=== PATIENT | female | born 1955 | race Caucasian/White ===

== ENCOUNTER 2018-12-02 06:44 | Inpatient (IN) | payer BC ==
[~2018-12-02] VITALS: Ht 157.5 cm; Wt 85.7 kg
[2018-12-02] VITALS (32 sets, daily range): BP systolic 76–135; BP diastolic 46–85; PULSE 76–107; RESP 11–29; Ht 157.5 cm; Wt 85.7 kg
[~2018-12-02 06:44] MED LIST: BUTA1CAP35 PO; DICL100G37 TOP; DOCU250C68 PO; DULO60CA59 PO; ERGO2000 PO; MAXZ25 PO; META800T PO; NORT10CA2 PO; OMEP40CA6 PO; TOPI25TA10 ORAL; TRAZ300T15 PO
[2018-12-02] MEDS ORDERED: POLYMYXIN B 500000 UNIT INJ ONE ×2 (06:53→10:41)
[2018-12-02] MEDS ORDERED: BACITRACIN 50000 UNITS INJ ONE (06:56)
[2018-12-02] MEDS ORDERED: DEXAMETHASONE 4 MG/ML 1 ML INJ IV ONE (07:30)
[2018-12-02] MEDS ORDERED: ACETAMINOPHEN 1000MG/100ML IV 100 ML IVPB ONE (07:30)
[2018-12-02] MEDS ORDERED: ACETAMINOPHEN 500 MG TAB PO ONE (07:30)
[2018-12-02] MEDS: LACTATED RINGER'S 1,000 ML IV SCH ×3 (07:34→21:26)
--- NOTE | 2018-12-02 07:36 | HPN ---
Date/Time of Note Date/Time of Note DATE: 12/02/18 TIME: 07:36 Interval H&P Admission Note Pt. seen H&P reviewed: No system changes BETH MCINTYRE December 02, 2018 07:36
--- NOTE | 2018-12-02 08:29 | PREAC ---
Date/Time of Note Date/Time of Note DATE: 12/02/18 TIME: 08:27 Anesthesia Eval and Record Evaluation Time Pre-Procedure Interview DATE: 12/02/18 TIME: 08:27 Age 62 Sex female NPO: 8 hrs Preoperative diagnosis Post bilat TKR infection Planned procedure Bilat TKR revision Past Medical History Past Medical History: Includes GI: GERD, Morbid obesity Surgery & Anesthesia Issues No known issue Meds Anticoagulation: No Beta Ubaldo within 24 hr: No Reason Beta Ubaldo not given: Pt. not on B-Ubaldo Reported Medications Diclofenac Sodium* (Voltaren* Gel) 1% -100 Gm Gel, 2 GM TOP QID, #1 TUB 11/22/18 Butalb/Acetaminophen/Caffeine ([id number] 50-300-40) 1 Each Capsule, 1 EACH PO PRN PRN for HEADACHE, CAP 11/22/18 Omeprazole* (Omeprazole*) 40 Mg Capsule.dr, 40 MG PO DAILY, #30 CAP 11/22/18 Docusate Sodium* (Dok*) 250 Mg Capsule, 250 MG PO DAILY PRN for CONSTIPATION, #30 CAP 11/22/18 Ergocalciferol (Vitamin D2) (VITAMIN D2) 2,000 Unit Tablet, 2000 UNIT PO DAILY, TAB 11/22/18 Nortriptyline Hcl* (Nortriptyline Hcl*) 10 Mg Capsule, 10 MG PO HS, CAP 11/22/18 Metaxalone* (Metaxalone*) 800 Mg Tablet, 800 MG PO QID, TAB 11/22/18 Trazodone Hcl* (Trazodone Hcl*) 300 Mg Tablet, 300 MG PO QHS, #30 TAB 11/22/18 Triamterene/Hctz* (Maxzide (37.5-25)*) 1 Each Tablet, 0.5 EACH PO AT 3PM, #30 TAB 11/22/18 Triamterene/Hctz* (Maxzide (37.5-25)*) 1 Each Tablet, 1 EACH PO QAM, #30 TAB 11/22/18 Topiramate* (Topiramate*) 25 Mg Tablet, 25 MG PO BID PRN for HEADACHE, TAB 11/22/18 Duloxetine Hcl* (Duloxetine Hcl*) 60 Mg Capsule.dr, 60 MG PO DAILY, #30 CAP 11/22/18 Current Medications Lactated Ringer's 1,000 ml @ 125 mls/hr Q8H IV Last administered on 12/02/18at 07:34; Admin Dose 125 MLS/HR; Start 12/02/18 at 07:30; Stop 12/02/18 at 17:00 Tranexamic Acid 100 ml @ 200 mls/hr AT INCISION ONCE IVPB ; Start 12/02/18 at 08:30; Stop 12/02/18 at 08:59 Tranexamic Acid 100 ml @ 330 mls/hr AT CLOSURE ONCE IVPB ; Start 12/02/18 at 09:30; Stop 12/02/18 at 09:48 Ropivacaine/ Clonidine HCl/ Epinephrine/ Ketorolac Tromethamine/ Sodium Chloride INTRA-OP ONCE IRR ; Start 12/02/18 at 08:30; Stop 12/02/18 at 08:31 Meds reviewed: Yes Allergies Coded Allergies: Iodinated Contrast- Oral and IV Dye (Verified Allergy, Severe, ANAPHALYTIC, 11/22/18) Penicillins (Verified Adverse Reaction, Intermediate, ITCHING, 11/22/18) acetaminophen (Verified Adverse Reaction, Intermediate, ITCHING, 11/22/18) hydromorphone (Verified Adverse Reaction, Intermediate, ITCHING, 11/22/18) oxycodone (Verified Adverse Reaction, Intermediate, ITCHING, 11/22/18) Allergies Reviewed: Yes Labs/Studies Labs Reviewed: Reviewed by anesthesiologist Blood Bank Test 12/02/18 07:27 Blood Product Summary Counts test: N/A Studies: ECG Pre-procedure Exam Last vitals Vital Signs Date Temp Pulse Resp B/P (MAP) Pulse Ox O2 O2 Flow FiO2 Time Delivery Rate 12/02/18 96.3 86 16 135/85 99 08:01 (102) Airway: Adequate mouth opening Mallampati: Mallampati II Teeth: Normal Lung: Normal Heart: Normal ASA Physical Status ASA physical status: 3 Emergency: None Planned Anesthetic General/MAC: ETT Neuraxial: Spinal Planned Pain Management Sub-arachniod narcotics, Parenteral pain med Pre-operative Attestations Prior to commencing anesthesia and surgery, the patient was re-evaluated, there was verification of: *The patient's identity *The results of appropriate recent lab work and preoperative vital signs *The above evaluation not changing prior to induction *Anesthetic plan, risk benefits, alternative and complications discussed with patient/family; questions answered; patient/family understands, accepts and wishes to proceed. JEANCARLOS SANTOYO MD December 02, 2018 08:29
[2018-12-02] MEDS ORDERED: TRANEXAMIC ACID 1GM/100ML(PMX) 100 ML AT INCISION X1 IVPB ONE (08:30)
[2018-12-02] MEDS ORDERED: DOCU-159 PO (08:37)
[2018-12-02] MEDS ORDERED: FER325 PO (08:37)
[2018-12-02] MEDS ORDERED: CITRACAL PO (08:37)
[2018-12-02] MEDS ORDERED: MULTI PO (08:37)
[2018-12-02] MEDS ORDERED: NORT25CA PO (08:37)
[2018-12-02] MEDS ORDERED: GABA100C14 PO (08:37)
[2018-12-02] MEDS ORDERED: morphine SULFATE/PF (10 MG/10 ML) INJ ONE (08:41)
[2018-12-02] MEDS ORDERED: MIDAZOLAM 1 MG/ML 2 ML INJ ONE ×2 (08:41→17:31)
[2018-12-02] MEDS ORDERED: TRANEXAMIC ACID 1GM/100ML(PMX) 100 ML AT CLOSURE X1 IVPB ONE (09:30)
[2018-12-02] MEDS ORDERED: POLYMYXIN/BACITRACIN 1L IRRIG IRR ONE (10:20)
[2018-12-02] MEDS ORDERED: VANCOMYCIN 1 GM INJ IRR ONE ×6 (10:21→12:10)
[2018-12-02] MEDS ORDERED: TOBRAMYCIN 1.2 GM POWDER ZFS ONE (10:21)
[2018-12-02] MEDS ORDERED: BACITRACIN 50000 UNITS INJ IRR ONE (12:08)
[2018-12-02] MEDS ORDERED: ETOMIDATE 20 MG INJ ONE (13:00)
[2018-12-02] MEDS ORDERED: PROPOFOL 20 ML ONE (13:00)
[2018-12-02] MEDS ORDERED: LIDOCAINE 2% (SDV) 5 ML INJ ONE (13:00)
[2018-12-02] MEDS ORDERED: ONDANSETRON 4 MG INJ ONE (13:00)
[2018-12-02] MEDS ORDERED: METOCLOPRAMIDE 10 MG INJ ONE (13:00)
[2018-12-02] MEDS ORDERED: DEXAMETHASONE 4 MG/ML 5 ML INJ ONE (13:01)
--- NOTE | 2018-12-02 13:04 | SIPON ---
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
[2018-12-02] MEDS ORDERED: TRANEXAMIC ACID 1GM/100ML(PMX) 200 ML ONE (13:11)
[2018-12-02] MEDS ORDERED: CLINDAMYCIN 900 MG/D5W (PMX) 50 ML IVPB ONE (13:11)
--- NOTE | 2018-12-02 13:12 | OPR ---
Date/Time of Note Date/Time of Note DATE: 12/02/18 TIME: 13:06 Operative Report Procedure Date: December 02, 2018 Preoperative Diagnosis Bilateral knee infection Postoperative Diagnosis Same Operation/Procedure Performed Bilateral knee revision, stage I with removal of implants and placement of antibiotic spacer Surgeon see signature line Segment Producer ALISSA Cintron Anesthesia Type: spinal Estimated Blood Loss: 250 - 300 ml's Transfusion none Specimen Cultures Grafts/Implants Antibiotic spacer, articulated spacer using attune knee components, 4 g of vancomycin powder and 4.8 g of tobramycin powder Tubes/Drains None Complications none Pt Condition Post Procedure: stable Disposition: PACU Indications The patient is a 62-year-old female who had total knee replacement many years ago. She has developed infection of her knees Procedure Description The patient was placed supine on the operating room table. Both knees were examined and found to have mild swelling. Both knees were prepped and draped in usual manner. The right knee was addressed first. Anterior incision was made. A medial parapatellar approach was used and the patella displaced laterally without everting it. Effusion was encountered and cultures sent. The tibial and femoral components were removed with the help of microsagittal saw and flexible osteotomes. The patellar component was removed as well. The IM canal of the femur and the tibia was opened up and debrided. The distal end of the femur and proximal tibia were thoroughly debrided. The knee was thoroughly irrigated with antibiotic solution. Antibiotic cement was mixed and the cement was placed in the intramedullary canal of the femur and tibia. After this a size 5 femur and a size 4 tibia were cemented in place in proper alignment. 8 mm of polyethylene resulted in stable knee from 0 to 115 degrees. New patella was cemented in place. Patellar tracking was satisfactory. Once the cement was set excess cement was removed. The knee was thoroughly irrigated and closed in layers using #1 strata fix for arthrotomy, #2,0 PDS for subcutaneous tissue and 3-0 Monocryl for the skin. A sterile dressing was applied on the right side. The left knee was similarly treated. An anterior incision was made. A medial parapatellar approach was used. The previous components were removed. The knee was thoroughly irrigated and debrided. The IM canal of the femur and tibia were opened up and debrided. Cultures were sent. Antibiotic cement was then used to place the spacer. A new patellar component was placed as well. A size 5 attune femur and a size 4 tibia were used along with an 8 mm polyethylene to create a stable knee from 0 to 110 degrees. The knee was then thoroughly irrigated and injected with Marcaine and Toradol. Pain cocktail was injected in both knees. The knee was closed in layers using #1 strata fix for arthrotomy, 2-0 PDS for subcutaneous tissue and 3-0 Monocryl for the skin. Sterile dressing was applied. Patient was transferred to the recovery room in stable condition. BETH MCINTYRE December 02, 2018 13:12
--- NOTE | 2018-12-02 13:26 | PAC ---
Date/Time of Note Date/Time of Note DATE: 12/02/18 TIME: 13:25 Post-Anesthesia Notes Post-Anesthesia Note Last documented vital signs Vital Signs Date Temp Pulse Resp B/P (MAP) Pulse Ox O2 O2 Flow FiO2 Time Delivery Rate 12/02/18 96.3 86 16 135/85 99 08:01 (102) Activity: WNL Respiratory function: WNL Cardiovascular function: WNL Mental status: Baseline Pain reasonably controlled: Yes Hydration appropriate: Yes Nausea/Vomiting absent: Yes Comments BP:108/67, P:78, Spo2:100%, T:99,8 JEANCARLOS SANTOYO MD December 02, 2018 13:26
[2018-12-02] MEDS ORDERED: MAGNESIUM HYDROXIDE 30ML CUP PO PRN (13:30)
[2018-12-02] MEDS ORDERED: ONDANSETRON 4 MG INJ IV PRN (13:30)
[2018-12-02] MEDS ORDERED: FENTAnyl 50 MCG/ML VIAL IV PRN (13:30)
[2018-12-02] MEDS ORDERED: NALOXONE (0.4 MG/ML) INJ IV PRN ×2 (13:30)
[2018-12-02] MEDS ORDERED: NACL 0.9% 3 ML SYG IV SCH (13:30)
[2018-12-02] MEDS ORDERED: METOCLOPRAMIDE 10 MG INJ IV PRN (13:30)
[2018-12-02] MEDS: DIPHENHYDRAMINE 50 MG INJ IV PRN ×4 (14:01→20:12)
[2018-12-02] MEDS: VANCOMYCIN 1 GM (PMX) 250 ML IVPB SCH (14:59)
[2018-12-02] MEDS ORDERED: CLINDAMYCIN 900 MG/D5W (PMX) 50 ML IVPB SCH (15:00)
--- NOTE | 2018-12-02 17:40 | HP ---
Date/Time of Note Date/Time of Note DATE: 12/02/18 TIME: 17:39 Assessment/Plan VTE Prophylaxis Risk score (from Ns)>0 risk: 3 SCD applied (from Ns): Yes Pharmacological prophylaxis: NA/contraindicated Pharm contraindication: surgical contra Lines/Catheters IV Catheter Type (from Nrsg): Peripheral IV Assessment/Plan Assessment/Plan -Bilateral knee infection. S/p Bilateral knee revision, stage I with removal of implants and placement of antibiotic spacer. Continue IV antibiotics. Continue Peotone and morphine as needed for pain and Zofran as needed for nausea. -Hypertension, continue Maxzide -Chronic kidney disease stage III continue to monitor BUN and creatinine. -GERD, continue Protonix -Depression, continue home anti-depressants. Further recommendations based on clinical course. Plan of care discussed with Dr. Huggins. HPI/ROS Admit Date/Time Admit Date/Time December 02, 2018 at 06:44 Hx of Present Illness The patient is 62-year-old female with adrenal insufficiency, hypertension, chronic kidney disease stage III, GERD, obesity, obstructive sleep apnea, and osteoarthritis. Patient had bilateral knee replacement many years ago and developed infection of bilateral knee prostheses. Patient was brought to the hospital and underwent bilateral knee revision with removal of implants and placement of antibiotic spacer. Postoperatively patient experiencing pain. Patient is admitted for further evaluation and management. ROS 12 point review of system is negative except for what mentioned in HPI PMH/Family/Social Past Medical History Medical History: GERD, hypertension, renal disease, other (Adrenal insufficiency, depression, GERD, obstructive sleep apnea, osteoarthritis) Medications Current Medications Fentanyl (Sublimaze) 25 mcg PACU ORDER PRN IV MILD PAIN 1-3; Start 12/02/18 at 13:30; Stop 12/02/18 at 18:00 Ondansetron HCl (Zofran Inj) 4 mg PACU ORDER PRN IV NAUSEA/VOMITING; Start 12/02/18 at 13:30; Stop 12/02/18 at 18:00 Metoclopramide HCl (Reglan) 10 mg PACU ORDER PRN IV NAUSEA/VOMITING; Start 12/02/18 at 13:30; Stop 12/02/18 at 18:00 Diphenhydramine HCl (Benadryl) 25 mg PACU ORDER PRN IV .PRURITUS Last administered on 12/02/18at 17:15; Admin Dose 25 MG; Start 12/02/18 at 13:30; Stop 12/02/18 at 18:00 Naloxone HCl (Narcan) 0.2 mg Q2M PRN IV .RESP RATE; Start 12/02/18 at 13:30; Stop 12/02/18 at 18:00 Miscellaneous Information (* Miscellaneous Pharmacy Order) DURAMORPH: 0.2 MG SPI... GIVEN NEURAXIAL XX ; Start 12/02/18 at 13:30 Lactated Ringer's 1,000 ml @ 80 mls/hr [id number] IV ; Start 12/02/18 at 13:18 IV Flush (NS 3 ml) 3 ml PER PROTOCOL IV ; Start 12/02/18 at 13:30 Ketorolac Tromethamine (Toradol) 15 mg Q6H PRN IV .PAIN; Start 12/02/18 at 13:30 Ondansetron HCl (Zofran Inj) 4 mg Q4H PRN IV NAUSEA/VOMITING; Start 12/03/18 at 13:30 Clindamycin HCl/ Dextrose 50 ml @ 50 mls/hr Q8H IVPB ; Start 12/02/18 at 15:00; Stop 12/03/18 at 07:59 Celecoxib (Celebrex) 100 mg BID PO ; Start 12/03/18 at 09:00 Gabapentin (Neurontin) 100 mg TID PO ; Start 12/02/18 at 21:00 Pantoprazole (Protonix Tab) 40 mg DAILY@06 PO ; Start 12/04/18 at 06:00 Docusate Sodium (Colace) 200 mg BID PO ; Start 12/03/18 at 09:00; Stop 12/06/18 at 08:59 Magnesium Hydroxide (Milk Of Mag) 30 ml HS PRN PO .CONSTIPATION; Start 12/02/18 at 13:30 Naloxone HCl (Narcan) 0.2 mg Q2M PRN IV .RESP RATE; Start 12/02/18 at 13:30 Aspirin (Halfprin) 81 mg BID PO ; Start 12/03/18 at 09:00 Acetaminophen/ Hydrocodone Bitart ([place] (10/325)) 1 tab Q4H PRN PO MODERATE PAIN LEVEL 4-6; Start 12/02/18 at 13:30 Vancomycin HCl 250 ml @ 125 mls/hr Q24H IVPB Last administered on 12/02/18at 14:59; Admin Dose 125 MLS/HR; Start 12/02/18 at 15:00 Midazolam HCl (Versed) 1 mg ONCE ONCE IV ; Start 12/02/18 at 18:00; Stop 12/02/18 at 18:01; Status UNV Coded Allergies: Iodinated Contrast- Oral and IV Dye (Verified Allergy, Severe, ANAPHALYTIC, 12/02/18) Penicillins (Verified Adverse Reaction, Intermediate, ITCHING, 12/02/18) hydromorphone (Verified Adverse Reaction, Intermediate, ITCHING, 12/02/18) oxycodone (Verified Adverse Reaction, Intermediate, ITCHING, 12/02/18) Past Surgical History Patient has extensive surgical history including status post bilateral knee replacement status post gastric bypass, status post liposuction status post C- section status post brachioplasty status post ventral hernia repair status post shoulder surgery, status post hysterectomy Past Surgical Hx: other Family History Significant Family History: diabetes, hypertension Social History Alcohol Use: none Smoking Status: Never smoker Drug Use: none Exam/Review of Systems Vital Signs Vitals Vital Signs Date Temp Pulse Resp B/P (MAP) Pulse Ox O2 O2 Flow FiO2 Time Delivery Rate 12/02/18 80 19 91/53 (66) 97 Room Air 16:18 12/02/18 99.8 13:32 Exam Constitutional: alert, oriented Head: normocephalic Neck: supple Respiratory: clear to auscultation Cardiovascular: regular rate and rhythm Gastrointestinal: soft, non-tender Musculoskeletal: other (Status post bilateral knee surgery) Extremities: normal pulses Neurological: nl mental status Skin: nl LONA Gupta December 02, 2018 17:40
[2018-12-02] MEDS ORDERED: DOCUSATE SODIUM 100 MG CAP PO PRN (18:00)
[2018-12-02] MEDS ORDERED: MIDAZOLAM 1 MG/ML 2 ML INJ IV ONE (18:00)
[2018-12-02] MEDS: KETOROLAC 15 MG INJ IV PRN (19:22)
[2018-12-02] MEDS: METAXALONE 800 MG TAB PO SCH (21:00)
[2018-12-02] MEDS: hydrOXYzine HCL 25 MG TAB PO PRN (21:09)
[2018-12-02] MEDS: NORTRIPTYLINE 25 MG CAP PO SCH (21:50)
[2018-12-02] MEDS: GABAPENTIN 100 MG CAP PO SCH (21:50)
[2018-12-02] MEDS: morphine 2 MG INJ IV PRN (22:07)
[2018-12-02] MEDS: CLINDAMYCIN 900 MG/D5W (PMX) 50 ML IVPB SCH (22:18)
[2018-12-03] MEDS: traZODone 100 MG TAB PO SCH ×2 (00:12→20:32)
[2018-12-03 00:45] VITALS: BP 107/53; PULSE 88; RESP 18
[2018-12-03] MEDS: morphine 2 MG INJ IV PRN ×4 (01:19→14:16)
[2018-12-03] MEDS: LACTATED RINGER'S 1,000 ML IV SCH ×2 (01:48→13:26)
[2018-12-03] MEDS: DIPHENHYDRAMINE 50 MG INJ IV PRN (02:32)
[2018-12-03] MEDS: hydrOXYzine HCL 25 MG TAB PO PRN (04:12)
[2018-12-03] MEDS: HYDROCODONE/APAP (10/325) TAB PO PRN ×2 (06:50→11:33)
[2018-12-03] MEDS: CLINDAMYCIN 900 MG/D5W (PMX) 50 ML IVPB SCH ×2 (06:51→14:26)
[2018-12-03] MEDS: PANTOPRAZOLE (EC) 40 MG TAB PO SCH (06:51)
[2018-12-03 07:32] VITALS: BP 104/55; PULSE 76; RESP 18
[2018-12-03] MEDS: DOCUSATE SODIUM 100 MG CAP PO SCH ×2 (08:51→20:32)
[2018-12-03] MEDS: FERROUS SULFATE (EC) 325 MG TAB PO SCH (08:51)
[2018-12-03] MEDS: CELECOXIB 100 MG CAP PO SCH ×2 (08:52→20:32)
[2018-12-03] MEDS: DULOXETINE 30 MG CAP DR PO SCH (08:52)
[2018-12-03] MEDS: GABAPENTIN 100 MG CAP PO SCH ×3 (08:52→20:32)
[2018-12-03] MEDS: ASPIRIN (EC) 81 MG TAB PO SCH ×2 (08:53→20:32)
[2018-12-03] MEDS ORDERED: NON-FORMULARY/PATIENT OWN MED (Omeprazole* 40 MG) PO SCH (09:00)
[2018-12-03] MEDS: METAXALONE 800 MG TAB PO SCH ×4 (09:00→21:00)
[2018-12-03] MEDS ORDERED: TRIAMTERENE/HCTZ (37.5/25) TAB PO SCH (09:00)
--- NOTE | 2018-12-03 12:08 | CONS ---
Consultation Date/Type/Reason Admit Date/Time December 02, 2018 at 06:44 Date/Time of Note DATE: 12/03/18 TIME: 12:08 Past Medical History Medical History: GERD, hypertension, renal disease, other (Adrenal insufficie ncy, depression, GERD, obstructive sleep apnea, osteoarthritis) Home Meds Reported Medications Docusate Sodium* (Docusate Sodium*) 100 Mg Capsule, 200 MG PO DAILY PRN for CONSTIPATION, #30 CAP 12/02/18 Multivitamins* (Theragran*) 1 Tab Tab, 1 TAB PO DAILY, TAB 12/02/18 Ferrous Sulfate* (Ferrous Sulfate*) 325 Mg Tabec, 325 MG PO DAILY, TAB 12/02/18 Calcium Citrate* (Citracal*) 950 Mg Tab, 2000 MG PO DAILY, TAB 12/02/18 Gabapentin* (Gabapentin*) 100 Mg Capsule, 100 MG PO Q8H, #90 CAP 12/02/18 Nortriptyline Hcl* (Nortriptyline Hcl*) 25 Mg Capsule, 25 MG PO HS, CAP 12/02/18 Diclofenac Sodium* (Voltaren* Gel) 1% -100 Gm Gel, 2 GM TOP QID, #1 TUB 11/22/18 Butalb/Acetaminophen/Caffeine ([id number] 50-300-40) 1 Each Capsule, 1 EACH PO PRN PRN for HEADACHE, CAP 11/22/18 Omeprazole* (Omeprazole*) 40 Mg Capsule.dr, 40 MG PO DAILY, #30 CAP 11/22/18 Ergocalciferol (Vitamin D2) (VITAMIN D2) 2,000 Unit Tablet, 2000 UNIT PO DAILY, TAB 11/22/18 Metaxalone* (Metaxalone*) 800 Mg Tablet, 800 MG PO QID, TAB 11/22/18 Trazodone Hcl* (Trazodone Hcl*) 300 Mg Tablet, 300 MG PO QHS, #30 TAB 11/22/18 Triamterene/Hctz* (Maxzide (37.5-25)*) 1 Each Tablet, 0.5 EACH PO AT 3PM, #30 TAB 11/22/18 Triamterene/Hctz* (Maxzide (37.5-25)*) 1 Each Tablet, 0.5 EACH PO BID, #30 TAB 11/22/18 Topiramate* (Topiramate*) 25 Mg Tablet, 3 TAB ORAL QAM PRN for HEADACHE, TAB 11/22/18 Duloxetine Hcl* (Duloxetine Hcl*) 60 Mg Capsule.dr, 60 MG PO DAILY, #30 CAP 11/22/18 Discontinued Reported Medications Docusate Sodium* (Dok*) 250 Mg Capsule, 250 MG PO DAILY PRN for CONSTIPATION, #30 CAP 11/22/18 Nortriptyline Hcl* (Nortriptyline Hcl*) 10 Mg Capsule, 10 MG PO HS, CAP 11/22/18 Medications Current Medications Miscellaneous Information (* Miscellaneous Pharmacy Order) DURAMORPH: 0.2 MG SPI... GIVEN NEURAXIAL XX ; Start 12/02/18 at 13:30 Lactated Ringer's 1,000 ml @ 80 mls/hr [id number] IV Last administered on 12/02/18at 21:26; Admin Dose 80 MLS/HR; Start 12/02/18 at 13:18 IV Flush (NS 3 ml) 3 ml PER PROTOCOL IV ; Start 12/02/18 at 13:30 Ketorolac Tromethamine (Toradol) 15 mg Q6H PRN IV .PAIN Last administered on 12/02/18at 19:22; Admin Dose 15 MG; Start 12/02/18 at 13:30 Ondansetron HCl (Zofran Inj) 4 mg Q4H PRN IV NAUSEA/VOMITING; Start 12/03/18 at 13:30 Celecoxib (Celebrex) 100 mg BID PO Last administered on 12/03/18at 08:52; Admin Dose 100 MG; Start 12/03/18 at 09:00 Gabapentin (Neurontin) 100 mg TID PO Last administered on 12/03/18at 08:52; Admin Dose 100 MG; Start 12/02/18 at 21:00 Docusate Sodium (Colace) 200 mg BID PO Last administered on 12/03/18at 08:51; Admin Dose 200 MG; Start 12/03/18 at 09:00; Stop 12/06/18 at 08:59 Magnesium Hydroxide (Milk Of Mag) 30 ml HS PRN PO .CONSTIPATION; Start 12/02/18 at 13:30 Naloxone HCl (Narcan) 0.2 mg Q2M PRN IV .RESP RATE; Start 12/02/18 at 13:30 Aspirin (Halfprin) 81 mg BID PO Last administered on 12/03/18 08:53; Admin Dose 81 MG; Start 12/03/18 at 09:00 Acetaminophen/ Hydrocodone Bitart ([place] (10/325)) 1 tab Q4H PRN PO MODERATE PAIN LEVEL 4-6 Last administered on 12/03/18 11:33; Admin Dose 1 TAB; Start 12/02/18 at 13:30 Vancomycin HCl 250 ml @ 125 mls/hr Q24H IVPB Last administered on 12/02/18 14:59; Admin Dose 125 MLS/HR; Start 12/02/18 at 15:00 Docusate Sodium (Colace) 200 mg DAILY PRN PO CONSTIPATION; Start 12/02/18 at 18:00 Duloxetine HCl (Cymbalta) 60 mg DAILY PO Last administered on 12/03/18 08:52; Admin Dose 60 MG; Start 12/03/18 at 09:00 Ferrous Sulfate (Ferrous Sulfate (Ec)) 325 mg DAILY PO Last administered on 12/03/18 08:51; Admin Dose 325 MG; Start 12/03/18 at 09:00 Metaxalone (Skelaxin) 800 mg QID PO ; Start 12/02/18 at 21:00 Nortriptyline HCl (Aventyl) 25 mg HS PO Last administered on 12/02/18 21:50; Admin Dose 25 MG; Start 12/02/18 at 21:00 Diphenhydramine HCl (Benadryl) 25 mg Q4H PRN IV PRURITIS Last administered on 12/03/18 02:32; Admin Dose 25 MG; Start 12/02/18 at 18:00 Pantoprazole (Protonix Tab) 40 mg DAILY@06 PO Last administered on 12/03/18 06:51; Admin Dose 40 MG; Start 12/03/18 at 06:00 Morphine Sulfate (morphine) 2 mg Q3H PRN IV breakthrough pain Last administered on 12/03/18 09:04; Admin Dose 2 MG; Start 12/02/18 at 20:30 Hydroxyzine HCl (Atarax) 25 mg Q6H PRN PO ITCHING Last administered on 12/03/18 04:12; Admin Dose 25 MG; Start 12/02/18 at 21:00 Clindamycin HCl/ Dextrose 50 ml @ 50 mls/hr Q8H IVPB Last administered on 12/03/18at 06:51; Admin Dose 50 MLS/HR; Start 12/02/18 at 22:30; Stop 12/03/18 at 15:29 Trazodone HCl (Desyrel) 300 mg HS PO Last administered on 12/03/18at 00:12; Admin Dose 300 MG; Start 12/02/18 at 23:30 Triamterene/HCTZ (Maxzide-25) 1 tab DAILY PO ; Start 12/04/18 at 09:00 Allergies: Coded Allergies: Iodinated Contrast- Oral and IV Dye (Verified Allergy, Severe, ANAPHALYTIC, 12/02/18) Penicillins (Verified Adverse Reaction, Intermediate, ITCHING, 12/02/18) hydromorphone (Verified Adverse Reaction, Intermediate, ITCHING, 12/02/18) oxycodone (Verified Adverse Reaction, Intermediate, ITCHING, 12/02/18) Past Surgical History Past Surgical Hx: other Social History Alcohol Use: none Smoking Status: Never smoker Drug Use: none Exam/Review of Systems Exam Vitals Vital Signs Date Temp Pulse Resp B/P (MAP) Pulse Ox O2 O2 Flow FiO2 Time Delivery Rate 12/03/18 97.6 76 18 104/55 100 07:32 (71) 12/03/18 Room Air 00:45 Intake and Output 12/02/18 12/02/18 12/03/18 1515:00 23:00 07:00 IntakeIntake Total 2000 ml 240 ml 770 ml OutputOutput Total 300 ml 1450 ml BalanceBalance 1700 ml 240 ml -680 ml Results Result Diagram: 12/03/18 0449 12/03/18 0449 Results 24hrs Laboratory Tests Test 12/03/18 04:49 12/03/18 07:41 White Blood Count 9.9 Red Blood Count 2.78 L Hemoglobin 8.0 L Hematocrit 25.0 L Mean Corpuscular Volume 89.9 Mean Corpuscular Hemoglobin 28.8 L Mean Corpuscular Hemoglobin Concent 32.0 Red Cell Distribution Width 14.5 Platelet Count 140 Mean Platelet Volume 9.9 Immature Granulocytes % 0.600 H Neutrophils % 81.6 H Lymphocytes % 9.3 L Monocytes % 8.4 Eosinophils % 0.0 Basophils % 0.1 Nucleated Red Blood Cells % 0.0 Immature Granulocytes # 0.060 H Neutrophils # 8.0 H Lymphocytes # 0.9 Monocytes # 0.8 Eosinophils # 0.0 Basophils # 0.0 Nucleated Red Blood Cells # 0.0 Sodium Level 133 L Potassium Level 4.5 Chloride Level 100 Carbon Dioxide Level 28 Anion Gap 5 Blood Urea Nitrogen 22 H Creatinine 0.97 Est Glomerular Filtrat Rate mL/min 58 L Glucose Level 114 Calcium Level 7.6 L Lab Scanned Report REFERENCE LAB Medications Medication Current Medications Miscellaneous Information (* Miscellaneous Pharmacy Order) DURAMORPH: 0.2 MG SPI... GIVEN NEURAXIAL XX ; Start 12/02/18 at 13:30 Lactated Ringer's 1,000 ml @ 80 mls/hr [id number] IV Last administered on 12/02at 21:26; Admin Dose 80 MLS/HR; Start 12/02/18 at 13:18 IV Flush (NS 3 ml) 3 ml PER PROTOCOL IV ; Start 12/02/18 at 13:30 Ketorolac Tromethamine (Toradol) 15 mg Q6H PRN IV .PAIN Last administered on 12/02/18at 19:22; Admin Dose 15 MG; Start 12/02/18 at 13:30 Ondansetron HCl (Zofran Inj) 4 mg Q4H PRN IV NAUSEA/VOMITING; Start 12/03/18 at 13:30 Celecoxib (Celebrex) 100 mg BID PO Last administered on 12/03/18at 08:52; Admin Dose 100 MG; Start 12/03/18 at 09:00 Gabapentin (Neurontin) 100 mg TID PO Last administered on 12/03/18at 08:52; Admin Dose 100 MG; Start 12/02/18 at 21:00 Docusate Sodium (Colace) 200 mg BID PO Last administered on 12/03/18at 08:51; Admin Dose 200 MG; Start 12/03/18 at 09:00; Stop 12/06/18 at 08:59 Magnesium Hydroxide (Milk Of Mag) 30 ml HS PRN PO .CONSTIPATION; Start 12/02/18 at 13:30 Naloxone HCl (Narcan) 0.2 mg Q2M PRN IV .RESP RATE; Start 12/02/18 at 13:30 Aspirin (Halfprin) 81 mg BID PO Last administered on 12/03/18 08:53; Admin Dose 81 MG; Start 12/03/18 at 09:00 Acetaminophen/ Hydrocodone Bitart ([place] (10/325)) 1 tab Q4H PRN PO MODERATE PAIN LEVEL 4-6 Last administered on 12/03/18 11:33; Admin Dose 1 TAB; Start 12/02/18 at 13:30 Vancomycin HCl 250 ml @ 125 mls/hr Q24H IVPB Last administered on 12/02/18 14:59; Admin Dose 125 MLS/HR; Start 12/02/18 at 15:00 Docusate Sodium (Colace) 200 mg DAILY PRN PO CONSTIPATION; Start 12/02/18 at 18:00 Duloxetine HCl (Cymbalta) 60 mg DAILY PO Last administered on 12/03/18 08:52; Admin Dose 60 MG; Start 12/03/18 at 09:00 Ferrous Sulfate (Ferrous Sulfate (Ec)) 325 mg DAILY PO Last administered on 11/11 08:51; Admin Dose 325 MG; Start 12/03/18 at 09:00 Metaxalone (Skelaxin) 800 mg QID PO ; Start 12/02/18 at 21:00 Nortriptyline HCl (Aventyl) 25 mg HS PO Last administered on 12/02/18 21:50; Admin Dose 25 MG; Start 12/02/18 at 21:00 Diphenhydramine HCl (Benadryl) 25 mg Q4H PRN IV PRURITIS Last administered on 12/03/18 02:32; Admin Dose 25 MG; Start 12/02/18 at 18:00 Pantoprazole (Protonix Tab) 40 mg DAILY@06 PO Last administered on 12/03/18 06:51; Admin Dose 40 MG; Start 12/03/18 at 06:00 Morphine Sulfate (morphine) 2 mg Q3H PRN IV breakthrough pain Last administered on 12/03/18 09:04; Admin Dose 2 MG; Start 12/02/18 at 20:30 Hydroxyzine HCl (Atarax) 25 mg Q6H PRN PO ITCHING Last administered on 12/03/18 04:12; Admin Dose 25 MG; Start 12/02/18 at 21:00 Clindamycin HCl/ Dextrose 50 ml @ 50 mls/hr Q8H IVPB Last administered on 12/03/18at 06:51; Admin Dose 50 MLS/HR; Start 12/02/18 at 22:30; Stop 12/03/18 at 15:29 Trazodone HCl (Desyrel) 300 mg HS PO Last administered on 12/03/18at 00:12; Admin Dose 300 MG; Start 12/02/18 at 23:30 Triamterene/HCTZ (Maxzide-25) 1 tab DAILY PO ; Start 12/04/18 at 09:00 GARLAND GALLEGOS MD December 03, 2018 12:08
--- NOTE | 2018-12-03 12:51 | PN ---
DATE: 12/03/2018 SUBJECTIVE: Follow up on bilateral knee revision secondary to prosthetic knee infection, hypertensio n, CKD and depression. The patient denies any chest pain, shortness of breath, remains awake, alert. Denies any abdominal pain. No reported vomiting. PHYSICAL EXAMINATION: GENERAL: The patient is awake, alert. VITAL SIGNS: Temperature 97.6, pulse 72, respiration 18, blood pressure 104/55, 02 sat % on ro om air. HEENT: No eye discharge or redness. Conjunctivae are normal. Oropharynx clear. NECK: No mass. CHEST: Fairly clear. CARDIOVASCULAR: S1, S2 normal. ABDOMEN: Soft, nondistended, nontender. EXTREMITIES: No pedal edema. GENERAL: The patient is awake, alert, and oriented. Detailed neurological examination was difficult due to recent surgery. The patient did not have any numbness in any extremities. IMPRESSION: 1. Bilateral knee infection status post bilateral knee revision. The patient is on clindamycin and vancomycin postoperatively. We will obtain ID consultation from Dr. Cox. 2. Hypertension. The patient is on Maxzide. This morning her sodium is 133, potassium is 4.5. Porter l continue to monitor. 3. Acute blood loss anemia with the hemoglobin today being 8. Will add iron sulfate. 4. History of CKD 3, however, creatinine is currently 0.9. We will continue to monitor. Continue a ntidepressant as at home. Dictated By: LEONOR ANDRE MD AB/NTS Conf#: [id number] DID#: [id number] CC: BETH MCINTYRE MD;*EndCC*
[2018-12-03 13:25] VITALS: BP 113/57; PULSE 85; RESP 18
[2018-12-03] MEDS ORDERED: ONDANSETRON 4 MG INJ IV PRN (13:30)
--- NOTE | 2018-12-03 14:59 | PN ---
Date/Time of Note Date/Time of Note DATE: 12/03/18 TIME: 14:56 Assessment/Plan Lines/Catheters IV Catheter Type (from Nrsg): Peripheral IV Husain in Place (from Nrsg): Yes Assessment/Plan Chief Complaint/Hosp Course POD#1 s/p bilateral stage I revision TKA -Continue to follow cultures -PICC line ordered -Post op H&H stable -PT/OT -Joints pain control protocol -DVT prophylaxis: SCD's, ASA 81 mg twice daily -Weight bearing status: as tolerated -Abx: IV vancomycin x6 weeks -Diet: ADAT -Husain: Discontinue today versus tomorrow -Discharge planning consult. Patient is determined to go home with IV antibiotics. She will require IV anti-medics x6 weeks. She will need to follow-up with Dr. Neymar Morales from infectious disease at [place]. Planned Discharge Date: 12/04 versed 12/05 Discharge to home with home health and IV antibiotics Subjective 24 Hr Interval Summary Patient doing well No acute events overnight Pain is moderately controlled Exam/Review of Systems Vital Signs Vitals Vital Signs Date Temp Pulse Resp B/P (MAP) Pulse Ox O2 O2 Flow FiO2 Time Delivery Rate 12/03/18 97.7 85 18 113/57 99 13:25 (75) 12/03/18 Room Air 00:45 Intake and Output 12/02/18 12/02/18 12/03/18 1515:00 23:00 07:00 IntakeIntake Total 2000 ml 240 ml 770 ml OutputOutput Total 300 ml 1450 ml BalanceBalance 1700 ml 240 ml -680 ml Exam Free Text/Dictation Bilateral lower extremity: Dressing: clean, dry, and intact, no erythema Sensation intact to light touch in a sural, saphenous, deep peroneal, superficial peroneal, medial and lateral plantar nerve distribution. Motor is intact, patient able to dorsiflex and plantarflex ankle and extend and flex great toe. Dorsalis Pedis pulse +2, Brisk capillary refill. Compartments are soft. Calves non-tender to palpation bilaterally. Results Result Diagram: 12/03/18 0449 12/03/18 0449 DIDIER OVIEDO MD December 03, 2018 14:58
[2018-12-03] MEDS ORDERED: oxyCODONE 5 MG TAB PO PRN (15:00)
[2018-12-03] MEDS ORDERED: LIDOCAINE 1% (MPF) 5 ML VIAL SC ONE (15:00)
[2018-12-03] MEDS: VANCOMYCIN 1 GM (PMX) 250 ML IVPB SCH (15:39)
[2018-12-03] MEDS: oxyCODONE 5 MG TAB PO PRN ×2 (17:04→21:23)
[2018-12-03 19:35] VITALS: BP 98/53; PULSE 91; RESP 16
[2018-12-03] MEDS: NORTRIPTYLINE 25 MG CAP PO SCH (20:32)
[2018-12-03] MEDS ORDERED: traZODone 100 MG TAB PO SCH (21:00)
[2018-12-03] MEDS: ACETAMINOPHEN 500 MG TAB PO SCH (21:25)
[2018-12-04] MEDS: oxyCODONE 5 MG TAB PO PRN ×4 (01:13→20:39)
[2018-12-04 01:30] VITALS: BP 93/51; PULSE 75; RESP 16
[2018-12-04] MEDS: LACTATED RINGER'S 1,000 ML IV SCH (02:01)
[2018-12-04] MEDS: PANTOPRAZOLE (EC) 40 MG TAB PO SCH (05:49)
[2018-12-04] MEDS: ACETAMINOPHEN 500 MG TAB PO SCH ×3 (05:50→22:18)
[2018-12-04] MEDS ORDERED: PANTOPRAZOLE (EC) 40 MG TAB PO SCH (06:00)
[2018-12-04] MEDS: morphine 2 MG INJ IV PRN ×4 (06:48→22:26)
[2018-12-04 08:29] VITALS: BP 93/55; PULSE 76; RESP 18
[2018-12-04] MEDS: DULOXETINE 30 MG CAP DR PO SCH (08:59)
[2018-12-04] MEDS: CELECOXIB 100 MG CAP PO SCH ×2 (08:59→20:38)
[2018-12-04] MEDS: ASPIRIN (EC) 81 MG TAB PO SCH ×2 (08:59→20:38)
[2018-12-04] MEDS: DOCUSATE SODIUM 100 MG CAP PO SCH ×2 (08:59→20:40)
[2018-12-04] MEDS: FERROUS SULFATE (EC) 325 MG TAB PO SCH (09:00)
[2018-12-04] MEDS: METAXALONE 800 MG TAB PO SCH ×4 (09:00→20:40)
[2018-12-04] MEDS: GABAPENTIN 100 MG CAP PO SCH ×3 (09:00→20:38)
[2018-12-04] MEDS: TRIAMTERENE/HCTZ (37.5/25) TAB PO SCH (09:00)
--- NOTE | 2018-12-04 09:56 | PN ---
Date/Time of Note Date/Time of Note DATE: 12/04/18 TIME: 09:55 Assessment/Plan Lines/Catheters IV Catheter Type (from Nrsg): PICC Line Husain in Place (from Nrsg): Yes Assessment/Plan Chief Complaint/Hosp Course POD#2 s/p bilateral stage I revision TKA Patient to wear a knee immobilizer on right lower extremity when out of bed to assist with ambulating. Patient's pain is better controlled today. Plan on discharging patient home with IV antibiotics. -Continue to follow cultures -PICC line ordered -Post op H&H stable -PT/OT -Joints pain control protocol -DVT prophylaxis: SCD's, ASA 81 mg twice daily -Weight bearing status: as tolerated. Knee immobilizer on right lower extremity when bearing weight. -Abx: IV vancomycin x6 weeks -Diet: ADAT -Husain: Discontinue today versus tomorrow -Discharge planning consult. Patient is determined to go home with IV antibiotics. She will require IV anti-medics x6 weeks. She will need to follow-up with Dr. Neymar Morales from infectious disease at [place]. Planned Discharge Date: 12/05 versed 12/06 Discharge to home with home health and IV antibiotics Subjective 24 Hr Interval Summary Patient doing well No acute events overnight Pain is well controlled Exam/Review of Systems Vital Signs Vitals Vital Signs Date Temp Pulse Resp B/P (MAP) Pulse Ox O2 O2 Flow FiO2 Time Delivery Rate 12/04/18 97.6 76 18 93/55 (68) 95 08:29 12/03/18 Room Air 00:45 Intake and Output 12/03/18 12/03/18 12/04/18 1515:00 23:00 07:00 IntakeIntake Total 1050 ml 420 ml 120 ml BalanceBalance 1050 ml 420 ml 120 ml Exam Free Text/Dictation Bilateral lower extremity: Dressing: clean, dry, and intact, no erythema Sensation intact to light touch in a sural, saphenous, deep peroneal, superficial peroneal, medial and lateral plantar nerve distribution. Motor is intact, patient able to dorsiflex and plantarflex ankle and extend and flex great toe. Dorsalis Pedis pulse +2, Brisk capillary refill. Compartments are soft. Calves non-tender to palpation bilaterally. Results Result Diagram: 12/04/18 0442 12/04/18 044 DIDIER OVIEDO MD December 04, 2018 09:56
--- NOTE | 2018-12-04 13:05 | CONS ---
Assessment/Plan Assessment/Plan Hospital Course (Demo Recall) 1. Bilateral prosthetic knee infection 2. s/p Bilateral knee revision, stage I with removal of implants and placement of antibiotic spacer 3. Hx of obesity 4. Hx of htn 5. hx of susan 6. hx of oa 7. hx of depression R: cont. vanco add ctx monitor crcl monitor plts obtain outpt/other hospital records await intra-op cx we would be happy and available to see her in f/u in the office if she is unable to f/u with Dr. Morales ty Consultation Date/Type/Reason Admit Date/Time December 02, 2018 at 06:44 Date of Consultation: December 04, 2018 Type of Consult ID Reason for Consultation ABX RECS Requesting Provider: LEONOR ANDRE MD Date/Time of Note DATE: 12/04/18 TIME: 13:01 Hx of Present Illness 62 YO female with apparent pmh of adrenal insuffic, ckd, htn, depression, gerd, susan, obesity, oa, who unfortunately developed bilateral prosthetic knee infection. She is now s/p Bilateral knee revision, stage I with removal of implants and placement of antibiotic spacer. Intra-op cxs are pending. She is on empiric IV Vanco. She apparently follows with Dr. Morales at [place] Constitutional: no complaints, improved Eyes: no complaints ENT: no complaints Respiratory: no complaints Cardiovascular: no complaints Gastrointestinal: no complaints Genitourinary: no complaints Musculoskeletal: no complaints Skin: no complaints Neurologic: no complaints Endocrine: no complaints Lymphatic: no complaints Past Medical History Medical History: GERD, hypertension, renal disease, other (Adrenal insuffic iency, depression, GERD, obstructive sleep apnea, osteoarthritis) Home Meds Reported Medications Docusate Sodium* (Docusate Sodium*) 100 Mg Capsule, 200 MG PO DAILY PRN for CONSTIPATION, #30 CAP 12/02/18 Multivitamins* (Theragran*) 1 Tab Tab, 1 TAB PO DAILY, TAB 12/02/18 Ferrous Sulfate* (Ferrous Sulfate*) 325 Mg Tabec, 325 MG PO DAILY, TAB 12/02/18 Calcium Citrate* (Citracal*) 950 Mg Tab, 2000 MG PO DAILY, TAB 12/02/18 Gabapentin* (Gabapentin*) 100 Mg Capsule, 100 MG PO Q8H, #90 CAP 12/02/18 Nortriptyline Hcl* (Nortriptyline Hcl*) 25 Mg Capsule, 25 MG PO HS, CAP 12/02/18 Diclofenac Sodium* (Voltaren* Gel) 1% -100 Gm Gel, 2 GM TOP QID, #1 TUB 11/22/18 Butalb/Acetaminophen/Caffeine ([id number] 50-300-40) 1 Each Capsule, 1 EACH PO PRN PRN for HEADACHE, CAP 11/22/18 Omeprazole* (Omeprazole*) 40 Mg Capsule.dr, 40 MG PO DAILY, #30 CAP 11/22/18 Ergocalciferol (Vitamin D2) (VITAMIN D2) 2,000 Unit Tablet, 2000 UNIT PO DAILY, TAB 11/22/18 Metaxalone* (Metaxalone*) 800 Mg Tablet, 800 MG PO QID, TAB 11/22/18 Trazodone Hcl* (Trazodone Hcl*) 300 Mg Tablet, 300 MG PO QHS, #30 TAB 11/22/18 Triamterene/Hctz* (Maxzide (37.5-25)*) 1 Each Tablet, 0.5 EACH PO AT 3PM, #30 TAB 11/22/18 Triamterene/Hctz* (Maxzide (37.5-25)*) 1 Each Tablet, 0.5 EACH PO BID, #30 TAB 11/22/18 Topiramate* (Topiramate*) 25 Mg Tablet, 3 TAB ORAL QAM PRN for HEADACHE, TAB 11/22/18 Duloxetine Hcl* (Duloxetine Hcl*) 60 Mg Capsule.dr, 60 MG PO DAILY, #30 CAP 11/22/18 Discontinued Reported Medications Docusate Sodium* (Dok*) 250 Mg Capsule, 250 MG PO DAILY PRN for CONSTIPATION, #30 CAP 11/22/18 Nortriptyline Hcl* (Nortriptyline Hcl*) 10 Mg Capsule, 10 MG PO HS, CAP 11/22/18 Medications Current Medications Miscellaneous Information (* Miscellaneous Pharmacy Order) DURAMORPH: 0.2 MG SPI... GIVEN NEURAXIAL XX ; Start 12/02/18 at 13:30 Lactated Ringer's 1,000 ml @ 80 mls/hr [id number] IV Last administered on 12/02/18at 21:26; Admin Dose 80 MLS/HR; Start 12/02/18 at 13:18 IV Flush (NS 3 ml) 3 ml PER PROTOCOL IV ; Start 12/02/18 at 13:30 Ketorolac Tromethamine (Toradol) 15 mg Q6H PRN IV .PAIN Last administered on 12/02/18 19:22; Admin Dose 15 MG; Start 12/02/18 at 13:30 Ondansetron HCl (Zofran Inj) 4 mg Q4H PRN IV NAUSEA/VOMITING; Start 12/03/18 at 13:30 Celecoxib (Celebrex) 100 mg BID PO Last administered on 12/04/18 08:59; Admin Dose 100 MG; Start 12/03/18 at 09:00 Gabapentin (Neurontin) 100 mg TID PO Last administered on 12/04/18 09:00; Admin Dose 100 MG; Start 12/02/18 at 21:00 Docusate Sodium (Colace) 200 mg BID PO Last administered on 12/04/18 08:59; Admin Dose 200 MG; Start 12/03/18 at 09:00; Stop 12/06/18 at 08:59 Magnesium Hydroxide (Milk Of Mag) 30 ml HS PRN PO .CONSTIPATION; Start 12/02/18 at 13:30 Naloxone HCl (Narcan) 0.2 mg Q2M PRN IV .RESP RATE; Start 12/02/18 at 13:30 Aspirin (Halfprin) 81 mg BID PO Last administered on 12/04/18 08:59; Admin Dose 81 MG; Start 12/03/18 at 09:00 Vancomycin HCl 250 ml @ 125 mls/hr Q24H IVPB Last administered on 12/03/18 15:39; Admin Dose 125 MLS/HR; Start 12/02/18 at 15:00 Docusate Sodium (Colace) 200 mg DAILY PRN PO CONSTIPATION; Start 12/02/18 at 18:00 Duloxetine HCl (Cymbalta) 60 mg DAILY PO Last administered on 12/04/18 08:59; Admin Dose 60 MG; Start 12/03/18 at 09:00 Ferrous Sulfate (Ferrous Sulfate (Ec)) 325 mg DAILY PO Last administered on 12/04/18 09:00; Admin Dose 325 MG; Start 12/03/18 at 09:00 Metaxalone (Skelaxin) 800 mg QID PO ; Start 12/02/18 at 21:00 Nortriptyline HCl (Aventyl) 25 mg HS PO Last administered on 12/03/18 20:32; Admin Dose 25 MG; Start 12/02/18 at 21:00 Diphenhydramine HCl (Benadryl) 25 mg Q4H PRN IV PRURITIS Last administered on 12/03/18 02:32; Admin Dose 25 MG; Start 12/02/18 at 18:00 Pantoprazole (Protonix Tab) 40 mg DAILY@06 PO Last administered on 12/04/18 05:49; Admin Dose 40 MG; Start 12/03/18 at 06:00 Morphine Sulfate (morphine) 2 mg Q3H PRN IV breakthrough pain Last administered on 12/04/18 11:53; Admin Dose 2 MG; Start 12/02/18 at 20:30 Hydroxyzine HCl (Atarax) 25 mg Q6H PRN PO ITCHING Last administered on 12/03/18 04:12; Admin Dose 25 MG; Start 12/02/18 at 21:00 Trazodone HCl (Desyrel) 300 mg HS PO Last administered on 12/03/18 20:32; Admin Dose 300 MG; Start 12/02/18 at 23:30 Triamterene/HCTZ (Maxzide-25) 1 tab DAILY PO ; Start 12/04/18 at 09:00 Oxycodone HCl (Roxicodone) 15 mg Q4H PRN PO .PAIN Last administered on 12/04/18 11:14; Admin Dose 15 MG; Start 12/03/18 at 15:00 Oxycodone HCl (Roxicodone) 10 mg Q4H PRN PO .PAIN Last administered on 12/04/18 05:50; Admin Dose 10 MG; Start 12/03/18 at 15:00 Oxycodone HCl (Roxicodone) 5 mg Q4H PRN PO .PAIN; Start 12/03/18 at 15:00 Acetaminophen (Tylenol Tab) 1,000 mg Q8 PO Last administered on 12/04/18 05:50; Admin Dose 1,000 MG; Start 12/03/18 at 22:00 IV Flush (NS 10 ml) 10 ml PRN PRN IV IV PROTOCOL; Start 12/03/18 at 21:00 Allergies: Coded Allergies: Iodinated Contrast- Oral and IV Dye (Verified Allergy, Severe, ANAPHALYTIC, 12/02/18) Penicillins (Verified Adverse Reaction, Intermediate, ITCHING, 12/02/18) hydromorphone (Verified Adverse Reaction, Intermediate, ITCHING, 12/02/18) oxycodone (Verified Adverse Reaction, Intermediate, ITCHING, 12/02/18) Past Surgical History Past Surgical Hx: other Social History Alcohol Use: none Smoking Status: Never smoker Drug Use: none Exam/Review of Systems Exam Vitals Vital Signs Date Temp Pulse Resp B/P (MAP) Pulse Ox O2 O2 Flow FiO2 Time Delivery Rate 12/04/18 97.6 76 18 93/55 (68) 95 08:29 12/03/18 Room Air 00:45 Intake and Output 12/03/18 12/03/18 12/04/18 1515:00 23:00 07:00 IntakeIntake Total 1050 ml 420 ml 120 ml BalanceBalance 1050 ml 420 ml 120 ml Constitutional: alert, oriented, well developed Psych: no complaints, nl mood/affect Head: normocephalic, atraumatic Eyes: nl conjunctiva, EOMI, nl lids, nl sclera, PERRL ENMT: nl external ears & nose, nl lips & teeth, nl nasal mucosa & septum Neck: supple, non-tender Respiratory: clear to auscultation, normal air movement Cardiovascular: regular rate and rhythm, nl pulses Gastrointestinal: soft, nl liver, spleen, non-tender Neurological: MEDICAL RECORDS COORDINATOR II-XII intact, nl mental status, nl speech, nl strength Results Result Diagram: 12/04/182 12/04/182 Results 24hrs Laboratory Tests Test 12/04/18 04:42 White Blood Count 5.6 # Red Blood Count 2.70 L Hemoglobin 7.9 L Hematocrit 24.5 L Mean Corpuscular Volume 90.7 Mean Corpuscular Hemoglobin 29.3 Mean Corpuscular Hemoglobin Concent 32.2 Red Cell Distribution Width 14.8 H Platelet Count 121 L Mean Platelet Volume 10.2 Immature Granulocytes % 0.400 Neutrophils % 62.0 Lymphocytes % 27.5 Monocytes % 9.2 Eosinophils % 0.7 Basophils % 0.2 Nucleated Red Blood Cells % 0.0 Immature Granulocytes # 0.020 Neutrophils # 3.5 Lymphocytes # 1.5 Monocytes # 0.5 Eosinophils # 0.0 Basophils # 0.0 Nucleated Red Blood Cells # 0.0 Sodium Level 134 L Potassium Level 4.1 Chloride Level 99 Carbon Dioxide Level 30 Anion Gap 5 Blood Urea Nitrogen 21 H Creatinine 0.92 Est Glomerular Filtrat Rate mL/min > 60 Glucose Level 92 Calcium Level 7.9 L Medications Medication Current Medications Miscellaneous Information (* Miscellaneous Pharmacy Order) DURAMORPH: 0.2 MG SPI... GIVEN NEURAXIAL XX ; Start 12/02/18 at 13:30 Lactated Ringer's 1,000 ml @ 80 mls/hr [id number] IV Last administered on 12/02/18 21:26; Admin Dose 80 MLS/HR; Start 12/02/18 at 13:18 IV Flush (NS 3 ml) 3 ml PER PROTOCOL IV ; Start 12/02/18 at 13:30 Ketorolac Tromethamine (Toradol) 15 mg Q6H PRN IV .PAIN Last administered on 12/02/18 19:22; Admin Dose 15 MG; Start 12/02/18 at 13:30 Ondansetron HCl (Zofran Inj) 4 mg Q4H PRN IV NAUSEA/VOMITING; Start 12/03/18 at 13:30 Celecoxib (Celebrex) 100 mg BID PO Last administered on 12/04/18 08:59; Admin Dose 100 MG; Start 12/03/18 at 09:00 Gabapentin (Neurontin) 100 mg TID PO Last administered on 12/04/18 09:00; Admin Dose 100 MG; Start 12/02/18 at 21:00 Docusate Sodium (Colace) 200 mg BID PO Last administered on 12/04/18 08:59; Admin Dose 200 MG; Start 12/03/18 at 09:00; Stop 12/06/18 at 08:59 Magnesium Hydroxide (Milk Of Mag) 30 ml HS PRN PO .CONSTIPATION; Start 12/02/18 at 13:30 Naloxone HCl (Narcan) 0.2 mg Q2M PRN IV .RESP RATE; Start 12/02/18 at 13:30 Aspirin (Halfprin) 81 mg BID PO Last administered on 12/04/18 08:59; Admin Dose 81 MG; Start 12/03/18 at 09:00 Vancomycin HCl 250 ml @ 125 mls/hr Q24H IVPB Last administered on 12/03/18at 15:39; Admin Dose 125 MLS/HR; Start 12/02/18 at 15:00 Docusate Sodium (Colace) 200 mg DAILY PRN PO CONSTIPATION; Start 12/02/18 at 18:00 Duloxetine HCl (Cymbalta) 60 mg DAILY PO Last administered on 12/04/18at 08:59; Admin Dose 60 MG; Start 12/03/18 at 09:00 Ferrous Sulfate (Ferrous Sulfate (Ec)) 325 mg DAILY PO Last administered on 12/04/18 09:00; Admin Dose 325 MG; Start 12/03/18 at 09:00 Metaxalone (Skelaxin) 800 mg QID PO ; Start 12/02/18 at 21:00 Nortriptyline HCl (Aventyl) 25 mg HS PO Last administered on 12/03/18 20:32; Admin Dose 25 MG; Start 12/02/18 at 21:00 Diphenhydramine HCl (Benadryl) 25 mg Q4H PRN IV PRURITIS Last administered on 12/03/18 02:32; Admin Dose 25 MG; Start 12/02/18 at 18:00 Pantoprazole (Protonix Tab) 40 mg DAILY@06 PO Last administered on 12/04/18 05:49; Admin Dose 40 MG; Start 12/03/18 at 06:00 Morphine Sulfate (morphine) 2 mg Q3H PRN IV breakthrough pain Last administered on 12/04/18 11:53; Admin Dose 2 MG; Start 12/02/18 at 20:30 Hydroxyzine HCl (Atarax) 25 mg Q6H PRN PO ITCHING Last administered on 12/03/18 04:12; Admin Dose 25 MG; Start 12/02/18 at 21:00 Trazodone HCl (Desyrel) 300 mg HS PO Last administered on 12/03/18 20:32; Admin Dose 300 MG; Start 12/02/18 at 23:30 Triamterene/HCTZ (Maxzide-25) 1 tab DAILY PO ; Start 12/04/18 at 09:00 Oxycodone HCl (Roxicodone) 15 mg Q4H PRN PO .PAIN Last administered on 12/04/18at 11:14; Admin Dose 15 MG; Start 12/03/18 at 15:00 Oxycodone HCl (Roxicodone) 10 mg Q4H PRN PO .PAIN Last administered on 12/04/18at 05:50; Admin Dose 10 MG; Start 12/03/18 at 15:00 Oxycodone HCl (Roxicodone) 5 mg Q4H PRN PO .PAIN; Start 12/03/18 at 15:00 Acetaminophen (Tylenol Tab) 1,000 mg Q8 PO Last administered on 12/04/18at 05:50; Admin Dose 1,000 MG; Start 12/03/18 at 22:00 IV Flush (NS 10 ml) 10 ml PRN PRN IV IV PROTOCOL; Start 12/03/18 at 21:00 GARLAND GALLEGOS MD December 04, 2018 13:05
[2018-12-04] MEDS: CEFTRIAXONE 1 GM/50 ML (PMX) 50 ML IVPB SCH (14:33)
[2018-12-04] MEDS: VANCOMYCIN 1 GM (PMX) 250 ML IVPB SCH (15:51)
--- NOTE | 2018-12-04 17:12 | PN ---
Date/Time of Note Date/Time of Note DATE: 12/04/18 TIME: 17:10 Assessment/Plan VTE Prophylaxis Risk score (from Ns)>0 risk: 6 SCD applied (from [facility] [place]): Yes SCD contraindicated: other Pharmacological prophylaxis: other Pharm contraindication: other Lines/Catheters IV Catheter Type (from [facility]): PICC Line Central line still needed: Yes Urinary Cath still in place: No Assessment/Plan Assessment/Plan 1. Bilateral knee infection status post bilateral knee revision. The patient is on clindamycin and vancomycin postoperatively. - per ortho - per ID consultation from Dr. Cox. 2. Hypertension. The patient is on Maxzide. This morning her sodium is 133, potassium is 4.5. Will continue to monitor. 3. Acute blood loss anemia with the hemoglobin today being 8. Will add iron sulfate. 4. History of CKD 3, however, creatinine is currently 0.9. We will continue to monitor. Continue antidepressant as at home. - ZACHARY Acosta Result Diagram: 12/04/1844112/04/182 Results 24hrs Laboratory Tests Test 12/04/18 04:42 White Blood Count 5.6 # Red Blood Count 2.70 L Hemoglobin 7.9 L Hematocrit 24.5 L Mean Corpuscular Volume 90.7 Mean Corpuscular Hemoglobin 29.3 Mean Corpuscular Hemoglobin Concent 32.2 Red Cell Distribution Width 14.8 H Platelet Count 121 L Mean Platelet Volume 10.2 Immature Granulocytes % 0.400 Neutrophils % 62.0 Lymphocytes % 27.5 Monocytes % 9.2 Eosinophils % 0.7 Basophils % 0.2 Nucleated Red Blood Cells % 0.0 Immature Granulocytes # 0.020 Neutrophils # 3.5 Lymphocytes # 1.5 Monocytes # 0.5 Eosinophils # 0.0 Basophils # 0.0 Nucleated Red Blood Cells # 0.0 Sodium Level 134 L Potassium Level 4.1 Chloride Level 99 Carbon Dioxide Level 30 Anion Gap 5 Blood Urea Nitrogen 21 H Creatinine 0.92 Est Glomerular Filtrat Rate mL/min > 60 Glucose Level 92 Calcium Level 7.9 L Subjective 24 Hr Interval Summary Eyes: no complaints ENT: no complaints Respiratory: no complaints Cardiovascular: no complaints Gastrointestinal: no complaints Genitourinary: no complaints Musculoskeletal: bone/joint pain, restricted range of motion Skin: no complaints Neurologic: no complaints Endocrine: no complaints Lymphatic: no complaints Psychological: nl mood/affect Immunologic: no complaints Exam/Review of Systems Exam Vitals Vital Signs Date Temp Pulse Resp B/P (MAP) Pulse Ox O2 O2 Flow FiO2 Time Delivery Rate 12/04/18 97.6 76 18 93/55 (68) 95 08:29 12/03/18 Room Air 00:45 Intake and Output 12/03/18 12/03/18 12/04/18 1515:00 23:00 07:00 IntakeIntake Total 1050 ml 420 ml 120 ml BalanceBalance 1050 ml 420 ml 120 ml Constitutional: alert, well developed Psych: nl mood/affect Eyes: nl lids, nl sclera ENMT: nl external ears & nose Neck: non-tender Respiratory: clear to auscultation Cardiovascular: nl pulses Gastrointestinal: soft, non-tender Musculoskeletal: joint tenderness, range of motion Extremities: normal pulses Neurological: other Lymph: nontender Results Results 24hrs Laboratory Tests Test 12/04/18 04:42 White Blood Count 5.6 # Red Blood Count 2.70 L Hemoglobin 7.9 L Hematocrit 24.5 L Mean Corpuscular Volume 90.7 Mean Corpuscular Hemoglobin 29.3 Mean Corpuscular Hemoglobin Concent 32.2 Red Cell Distribution Width 14.8 H Platelet Count 121 L Mean Platelet Volume 10.2 Immature Granulocytes % 0.400 Neutrophils % 62.0 Lymphocytes % 27.5 Monocytes % 9.2 Eosinophils % 0.7 Basophils % 0.2 Nucleated Red Blood Cells % 0.0 Immature Granulocytes # 0.020 Neutrophils # 3.5 Lymphocytes # 1.5 Monocytes # 0.5 Eosinophils # 0.0 Basophils # 0.0 Nucleated Red Blood Cells # 0.0 Sodium Level 134 L Potassium Level 4.1 Chloride Level 99 Carbon Dioxide Level 30 Anion Gap 5 Blood Urea Nitrogen 21 H Creatinine 0.92 Est Glomerular Filtrat Rate mL/min > 60 Glucose Level 92 Calcium Level 7.9 L Medications Medication Current Medications Miscellaneous Information (* Miscellaneous Pharmacy Order) DURAMORPH: 0.2 MG SPI... GIVEN NEURAXIAL XX ; Start 12/02/18 at 13:30 IV Flush (NS 3 ml) 3 ml PER PROTOCOL IV ; Start 12/02/18 at 13:30 Ketorolac Tromethamine (Toradol) 15 mg Q6H PRN IV .PAIN Last administered on 12/02/18at 19:22; Admin Dose 15 MG; Start 12/02/18 at 13:30 Ondansetron HCl (Zofran Inj) 4 mg Q4H PRN IV NAUSEA/VOMITING; Start 12/03/18 at 13:30 Celecoxib (Celebrex) 100 mg BID PO Last administered on 12/04/18 08:59; Admin Dose 100 MG; Start 12/03/18 at 09:00 Gabapentin (Neurontin) 100 mg TID PO Last administered on 12/04/18 14:34; Admin Dose 100 MG; Start 12/02/18 at 21:00 Docusate Sodium (Colace) 200 mg BID PO Last administered on 12/04/18 08:59; Admin Dose 200 MG; Start 12/03/18 at 09:00; Stop 12/06/18 at 08:59 Magnesium Hydroxide (Milk Of Mag) 30 ml HS PRN PO .CONSTIPATION; Start 12/02/18 at 13:30 Naloxone HCl (Narcan) 0.2 mg Q2M PRN IV .RESP RATE; Start 12/02/18 at 13:30 Aspirin (Halfprin) 81 mg BID PO Last administered on 12/04/18 08:59; Admin Dose 81 MG; Start 12/03/18 at 09:00 Vancomycin HCl 250 ml @ 125 mls/hr Q24H IVPB Last administered on 12/04/18 15:51; Admin Dose 125 MLS/HR; Start 12/02/18 at 15:00 Docusate Sodium (Colace) 200 mg DAILY PRN PO CONSTIPATION; Start 12/02/18 at 18:00 Duloxetine HCl (Cymbalta) 60 mg DAILY PO Last administered on 12/04/18 08:59; Admin Dose 60 MG; Start 12/03/18 at 09:00 Ferrous Sulfate (Ferrous Sulfate (Ec)) 325 mg DAILY PO Last administered on 12/04/18 09:00; Admin Dose 325 MG; Start 12/03/18 at 09:00 Metaxalone (Skelaxin) 800 mg QID PO Last administered on 12/04/18 14:38; Admin Dose 800 MG; Start 12/02/18 at 21:00 Nortriptyline HCl (Aventyl) 25 mg HS PO Last administered on 12/03/18 20:32; Admin Dose 25 MG; Start 12/02/18 at 21:00 Diphenhydramine HCl (Benadryl) 25 mg Q4H PRN IV PRURITIS Last administered on 12/03/18 02:32; Admin Dose 25 MG; Start 12/02/18 at 18:00 Pantoprazole (Protonix Tab) 40 mg DAILY@06 PO Last administered on 12/04/18 05:49; Admin Dose 40 MG; Start 12/03/18 at 06:00 Morphine Sulfate (morphine) 2 mg Q3H PRN IV breakthrough pain Last administered on 12/04/18 15:45; Admin Dose 2 MG; Start 12/02/18 at 20:30 Hydroxyzine HCl (Atarax) 25 mg Q6H PRN PO ITCHING Last administered on 12/03/18 04:12; Admin Dose 25 MG; Start 12/02/18 at 21:00 Trazodone HCl (Desyrel) 300 mg HS PO Last administered on 12/03/18 20:32; Admin Dose 300 MG; Start 12/02/18 at 23:30 Triamterene/HCTZ (Maxzide-25) 1 tab DAILY PO ; Start 12/04/18 at 09:00 Oxycodone HCl (Roxicodone) 15 mg Q4H PRN PO .PAIN Last administered on 12/04/18 11:14; Admin Dose 15 MG; Start 12/03/18 at 15:00 Oxycodone HCl (Roxicodone) 10 mg Q4H PRN PO .PAIN Last administered on 12/04/18 05:50; Admin Dose 10 MG; Start 12/03/18 at 15:00 Oxycodone HCl (Roxicodone) 5 mg Q4H PRN PO .PAIN; Start 12/03/18 at 15:00 Acetaminophen (Tylenol Tab) 1,000 mg Q8 PO Last administered on 12/04/18 14:35; Admin Dose 1,000 MG; Start 12/03/18 at 22:00 IV Flush (NS 10 ml) 10 ml PRN PRN IV IV PROTOCOL; Start 12/03/18 at 21:00 Ceftriaxone Sodium 50 ml @ 100 mls/hr Q24H IVPB Last administered on 12/04/18 14:33; Admin Dose 100 MLS/HR; Start 12/04/18 at 14:00 DESTINY JOHNSON December 04, 2018 17:12
[2018-12-04 19:25] VITALS: BP 111/57; PULSE 100; RESP 20
[2018-12-04] MEDS: traZODone 100 MG TAB PO SCH (20:38)
[2018-12-04] MEDS: NORTRIPTYLINE 25 MG CAP PO SCH (20:38)
[2018-12-05] MEDS: oxyCODONE 5 MG TAB PO PRN ×5 (00:46→18:44)
[2018-12-05] MEDS: morphine 2 MG INJ IV PRN (01:56)
[2018-12-05 02:15] VITALS: BP 96/52; PULSE 84; RESP 20
[2018-12-05] MEDS: PANTOPRAZOLE (EC) 40 MG TAB PO SCH (05:59)
[2018-12-05] MEDS: ACETAMINOPHEN 500 MG TAB PO SCH ×3 (05:59→21:45)
--- NOTE | 2018-12-05 06:19 | PN ---
Date/Time of Note Date/Time of Note DATE: 12/05/18 TIME: 06:18 Assessment/Plan VTE Prophylaxis Risk score (from Ns)>0 risk: 8 SCD applied (from Ns): Yes SCD contraindicated: other Pharmacological prophylaxis: other Pharm contraindication: other Lines/Catheters IV Catheter Type (from Nrsg): PICC Line Central line still needed: Yes Urinary Cath still in place: No Assessment/Plan Assessment/Plan 1. Bilateral knee infection status post bilateral knee revision. The patient is on clindamycin and vancomycin postoperatively. - per ortho - per ID consultation from Dr. Cox. 2. Hypertension. The patient is on Maxzide. This morning her sodium is 133, potassium is 4.5. Will continue to monitor. 3. Acute blood loss anemia with the hemoglobin today being 8. Will add iron sulfate. 4. History of CKD 3, however, creatinine is currently 0.9. We will continue to monitor. Continue antidepressant as at home. - ZACHARY Acosta Result Diagram: 12/04/18 0442 12/05/18 0436 Results 24hrs Laboratory Tests Test 12/05/18 04:36 White Blood Count Pending Red Blood Count Pending Hemoglobin Pending Hematocrit Pending Mean Corpuscular Volume Pending Mean Corpuscular Hemoglobin Pending Mean Corpuscular Hemoglobin Concent Pending Red Cell Distribution Width Pending Platelet Count Pending Mean Platelet Volume Pending Sodium Level 138 Potassium Level 4.5 Chloride Level 102 Carbon Dioxide Level 32 H Anion Gap 4 L Blood Urea Nitrogen 17 Creatinine 0.94 Est Glomerular Filtrat Rate mL/min > 60 Glucose Level 95 Calcium Level 8.4 Subjective 24 Hr Interval Summary Free Text/Dictation c/o bilateral knee pain after PT; effective pain control afebrile No new events reported last night Eyes: no complaints ENT: no complaints Respiratory: no complaints Cardiovascular: no complaints Gastrointestinal: no complaints Genitourinary: no complaints Musculoskeletal: bone/joint pain, restricted range of motion Skin: no complaints Neurologic: no complaints Endocrine: no complaints Lymphatic: no complaints Psychological: nl mood/affect Immunologic: no complaints Exam/Review of Systems Exam Vitals Vital Signs Date Temp Pulse Resp B/P (MAP) Pulse Ox O2 O2 Flow FiO2 Time Delivery Rate 12/05/18 98.1 84 20 96/52 (67) 96 Room Air 02:15 Intake and Output 12/04/18 12/04/18 12/05/18 1515:00 23:00 07:00 IntakeIntake Total 5900 ml 1300 ml OutputOutput Total 4000 ml BalanceBalance 1900 ml 1300 ml Constitutional: alert, well developed Psych: nl mood/affect Head: atraumatic Eyes: nl lids ENMT: nl external ears & nose Neck: non-tender Respiratory: clear to auscultation Cardiovascular: nl pulses, other (s1s2) Gastrointestinal: soft, non-tender Musculoskeletal: joint tenderness, range of motion Extremities: normal pulses, other (BLE dressing noted- DDI ) Neurological: nl mental status, nl speech Skin: nl turgor Lymph: nontender Results Results 24hrs Laboratory Tests Test 12/05/18 04:36 White Blood Count Pending Red Blood Count Pending Hemoglobin Pending Hematocrit Pending Mean Corpuscular Volume Pending Mean Corpuscular Hemoglobin Pending Mean Corpuscular Hemoglobin Concent Pending Red Cell Distribution Width Pending Platelet Count Pending Mean Platelet Volume Pending Sodium Level 138 Potassium Level 4.5 Chloride Level 102 Carbon Dioxide Level 32 H Anion Gap 4 L Blood Urea Nitrogen 17 Creatinine 0.94 Est Glomerular Filtrat Rate mL/min > 60 Glucose Level 95 Calcium Level 8.4 Medications Medication Current Medications Miscellaneous Information (* Miscellaneous Pharmacy Order) DURAMORPH: 0.2 MG SPI... GIVEN NEURAXIAL XX ; Start 12/02/18 at 13:30 IV Flush (NS 3 ml) 3 ml PER PROTOCOL IV ; Start 12/02/18 at 13:30 Ketorolac Tromethamine (Toradol) 15 mg Q6H PRN IV .PAIN Last administered on 12/02/18at 19:22; Admin Dose 15 MG; Start 12/02/18 at 13:30 Ondansetron HCl (Zofran Inj) 4 mg Q4H PRN IV NAUSEA/VOMITING; Start 12/03/18 at 13:30 Celecoxib (Celebrex) 100 mg BID PO Last administered on 12/04/18at 20:38; Admin Dose 100 MG; Start 12/03/18 at 09:00 Gabapentin (Neurontin) 100 mg TID PO Last administered on 12/04/18at 20:38; Admin Dose 100 MG; Start 12/02/18 at 21:00 Docusate Sodium (Colace) 200 mg BID PO Last administered on 12/04/18 20:40; Ad min Dose 200 MG; Start 12/03/18 at 09:00; Stop 12/06/18 at 08:59 Magnesium Hydroxide (Milk Of Mag) 30 ml HS PRN PO .CONSTIPATION; Start 12/02/18 at 13:30 Naloxone HCl (Narcan) 0.2 mg Q2M PRN IV .RESP RATE; Start 12/02/18 at 13:30 Aspirin (Halfprin) 81 mg BID PO Last administered on 12/04/18 20:38; Admin Dose 81 MG; Start 12/03/18 at 09:00 Vancomycin HCl 250 ml @ 125 mls/hr Q24H IVPB Last administered on 12/04/18 15:51; Admin Dose 125 MLS/HR; Start 12/02/18 at 15:00 Docusate Sodium (Colace) 200 mg DAILY PRN PO CONSTIPATION; Start 12/02/18 at 18:00 Duloxetine HCl (Cymbalta) 60 mg DAILY PO Last administered on 12/04/18 08:59; Admin Dose 60 MG; Start 12/03/18 at 09:00 Ferrous Sulfate (Ferrous Sulfate (Ec)) 325 mg DAILY PO Last administered on 12/04/18 09:00; Admin Dose 325 MG; Start 12/03/18 at 09:00 Metaxalone (Skelaxin) 800 mg QID PO Last administered on 12/04/18 20:40; Admin Dose 800 MG; Start 12/02/18 at 21:00 Nortriptyline HCl (Aventyl) 25 mg HS PO Last administered on 12/04/18 20:38; Admin Dose 25 MG; Start 12/02/18 at 21:00 Diphenhydramine HCl (Benadryl) 25 mg Q4H PRN IV PRURITIS Last administered on 12/03/18 02:32; Admin Dose 25 MG; Start 12/02/18 at 18:00 Pantoprazole (Protonix Tab) 40 mg DAILY@06 PO Last administered on 12/05/18 05:59; Admin Dose 40 MG; Start 12/03/18 at 06:00 Morphine Sulfate (morphine) 2 mg Q3H PRN IV breakthrough pain Last administered on 12/05/18 01:56; Admin Dose 2 MG; Start 12/02/18 at 20:30 Hydroxyzine HCl (Atarax) 25 mg Q6H PRN PO ITCHING Last administered on 12/03/18at 04:12; Admin Dose 25 MG; Start 12/02/18 at 21:00 Trazodone HCl (Desyrel) 300 mg HS PO Last administered on 12/04/18at 20:38; Admin Dose 300 MG; Start 12/02/18 at 23:30 Triamterene/HCTZ (Maxzide-25) 1 tab DAILY PO ; Start 12/04/18 at 09:00 Oxycodone HCl (Roxicodone) 15 mg Q4H PRN PO .PAIN Last administered on 12/05/18 00:46; Admin Dose 15 MG; Start 12/03/18 at 15:00 Oxycodone HCl (Roxicodone) 10 mg Q4H PRN PO .PAIN Last administered on 12/05/18at 04:59; Admin Dose 10 MG; Start 12/03/18 at 15:00 Oxycodone HCl (Roxicodone) 5 mg Q4H PRN PO .PAIN; Start 12/03/18 at 15:00 Acetaminophen (Tylenol Tab) 1,000 mg Q8 PO Last administered on 12/05/18at 05 :59; Admin Dose 1,000 MG; Start 12/03/18 at 22:00 IV Flush (NS 10 ml) 10 ml PRN PRN IV IV PROTOCOL; Start 12/03/18 at 21:00 Ceftriaxone Sodium 50 ml @ 100 mls/hr Q24H IVPB Last administered on 12/04/18at 14:33; Admin Dose 100 MLS/HR; Start 12/04/18 at 14:00 DESTINY JOHNSON December 05, 2018 06:18
[2018-12-05 08:19] VITALS: BP 97/55; PULSE 87; RESP 16
--- NOTE | 2018-12-05 08:27 | PN ---
Date/Time of Note Date/Time of Note DATE: 12/05/18 TIME: : Assessment/Plan Lines/Catheters IV Catheter Type (from Nrsg): PICC Line Husain in Place (from Nrsg): No Assessment/Plan Chief Complaint/Hosp Course POD#3 s/p bilateral stage I revision TKA Patient to wear a knee immobilizer on right lower extremity when out of bed to assist with ambulating. Patient's pain is better controlled today. Plan on discharging patient home with IV antibiotics. New cultures are growing. We will likely keep patient for 5 days postop in order to determine final antib iotic regimen. -Continue to follow cultures. Gram-negative rods are now growing in culture. Infectious disease did add ceftriaxone. Will need to follow-up with infectious disease to determine if this is the final recommendation. -PICC line ordered -Post op H&H stable -PT/OT -Joints pain control protocol -DVT prophylaxis: SCD's, ASA 81 mg twice daily -Weight bearing status: as tolerated. Knee immobilizer on right lower extremity when bearing weight. -Abx: IV vancomycin and ceftriaxone x6 weeks -Diet: ADAT -Husain: Discontinue today versus tomorrow -Discharge planning consult. Patient is determined to go home with IV antibiotics. She will require IV antibiotics x6 weeks. She will need to follow-up with Dr. Neymar Morales from infectious disease at [facility]. Planned Discharge Date: 12/05 versed 12/06 Discharge to home with home health and IV antibiotics Subjective 24 Hr Interval Summary Patient doing well No acute events overnight Pain is well controlled Exam/Review of Systems Vital Signs Vitals Vital Signs Date Temp Pulse Resp B/P (MAP) Pulse Ox O2 O2 Flow FiO2 Time Delivery Rate 12/05/18 97.5 87 16 97/55 (69) 96 08:19 12/05/18 Room Air 02:15 Intake and Output 12/04/18 12/04/18 12/05/18 1515:00 23:00 07:00 IntakeIntake Total 5900 ml 1540 ml 420 ml OutputOutput Total 4000 ml BalanceBalance 1900 ml 1540 ml 420 ml Exam Free Text/Dictation Bilateral lower extremity: Dressing: clean, dry, and intact, no erythema Sensation intact to light touch in a sural, saphenous, deep peroneal, superficial peroneal, medial and lateral plantar nerve distribution. Motor is intact, patient able to dorsiflex and plantarflex ankle and extend and flex great toe. Dorsalis Pedis pulse +2, Brisk capillary refill. Compartments are soft. Calves non-tender to palpation bilaterally. Results Result Diagram: 12/05/18 0635 12/05/18 0436 DIDIER OVIEDO MD December 05, 2018 08:27
[2018-12-05] MEDS ORDERED: CEPASTAT LOZENGE MT PRN (08:30)
[2018-12-05] MEDS: TRIAMTERENE/HCTZ (37.5/25) TAB PO SCH (09:00)
[2018-12-05] MEDS: DULOXETINE 30 MG CAP DR PO SCH (09:32)
[2018-12-05] MEDS: ASPIRIN (EC) 81 MG TAB PO SCH ×2 (09:33→21:43)
[2018-12-05] MEDS: CELECOXIB 100 MG CAP PO SCH ×2 (09:33→21:43)
[2018-12-05] MEDS: FERROUS SULFATE (EC) 325 MG TAB PO SCH (09:33)
[2018-12-05] MEDS: GABAPENTIN 100 MG CAP PO SCH ×3 (09:33→21:43)
[2018-12-05] MEDS: METAXALONE 800 MG TAB PO SCH ×4 (09:34→21:43)
[2018-12-05] MEDS: DOCUSATE SODIUM 100 MG CAP PO SCH ×2 (09:34→21:43)
--- NOTE | 2018-12-05 09:55 | CONS ---
Assessment/Plan Assessment/Plan Hospital Course (Demo Recall) - Bilateral prosthetic knee infection - prelim L knee growing pantoea agglomerans and prelim R knee is NGTD - s/p Bilateral knee revision, stage I with removal of implants and placement of antibiotic spacer - CKD III - GERD - Depression - Obesity - Adrenal insufficiency - Hx Silvia en Y gastric surgery - Hx of HTN - hx of DOMO - hx of OA Recommendations: - Cont. vanco, cftx - Monitor crcl - Monitor plts - Obtain outpt/other hospital records - Await intra-op cx (L knee prelim surgical patho showing pantoea agglomerans, R knee NGTD) We would be happy and available to see her in f/u in the office if she is unable to f/u with Dr. Morales Plan was d/w patient, her at bedside, and the RN at the bedside, and with Dr. Cox via [facility] messaging. Consultation Date/Type/Reason Admit Date/Time December 02, 2018 at 06:44 Initial Consult Date 12/04/18 Type of Consult ID Requesting Provider: LEONOR ANDRE MD Date/Time of Note DATE: 12/05/18 TIME: 09:52 24 HR Interval Summary Free Text/Dictation D/w patient's RN, Left knee surgical bx cx growing GNR. Has remained afebrile, wbc 4.5 today. Detailed Summary Eyes: no complaints ENT: sore throat; No congestion Respiratory: sputum (small amt yellow); No cough, No shortness of breath, No wheezing Cardiovascular: no complaints; No chest pain, No palpitations Gastrointestinal: no complaints, constipation (d/w RN and with patient, patient has been getting colace, will try m.o.m.); No pain, No diarrhea, No nausea, No vomiting Genitourinary: no complaints; No dysuria Musculoskeletal: restricted range of motion (BLE), swelling (BLE) Skin: No rash, No skin lesions Neurologic: other (denies numbness or tingling BLE); No dizziness, No headache Endocrine: no complaints Lymphatic: no complaints Psychological: no complaints, nl mood/affect, other (pain 6-7/10 L knee) Additional Comments I answered all of patient's questions. Exam/Review of Systems Exam Vitals Vital Signs Date Temp Pulse Resp B/P (MAP) Pulse Ox O2 O2 Flow FiO2 Time Delivery Rate 12/05/18 97.5 87 16 97/55 (69) 96 08:19 12/05/18 Room Air 02:15 Allergies Coded Allergies Iodinated Contrast- Oral and IV Dye (Verified Allergy, Severe, ANAPHALYTIC, 12/02/18) Penicillins (Verified Adverse Reaction, Intermediate, ITCHING, 12/02/18) hydromorphone (Verified Adverse Reaction, Intermediate, ITCHING, 12/02/18) oxycodone (Verified Adverse Reaction, Intermediate, ITCHING, 12/02/18) Intake and Output 12/04/18 12/04/18 12/05/18 1515:00 23:00 07:00 IntakeIntake Total 5900 ml 1540 ml 420 ml OutputOutput Total 4000 ml BalanceBalance 1900 ml 1540 ml 420 ml Constitutional: alert, oriented, well developed, obese; No distress Psych: no complaints, nl mood/affect Head: normocephalic, atraumatic Eyes: nl conjunctiva, nl lids, nl sclera ENMT: nl external ears & nose, nl nasal mucosa & septum, mucosa pink and moist (no thrush) Neck: supple, non-tender (no swelling) Respiratory: clear to auscultation, normal air movement; No congested cough, No crackles/rales, No diminished breath sounds, No wheezing Cardiovascular: regular rate and rhythm, nl pulses, edema (1+ BLE) Gastrointestinal: soft, bowel sounds (normoactive ), surgical scars (well he aled), tender (BUQ - per pt this is baseline - has hx of silvia en y gastric sx); No distended, No firm, No mass Genitourinary - Female: other (bladder flat) Musculoskeletal: nl extremities to inspection, swelling (BLE), other (BLE wrapped with hafsa bandages and with cooling machine connected ) Extremities: normal pulses; No pitting pedal edema, No tenderness Neurological: nl mental status, nl speech; No numbness Skin: nl turgor; No rash or lesions Results Result Diagram: 12/05/18 0635 12/05/18 0436 Results 24hrs Laboratory Tests Test 12/05/18 04:36 12/05/18 06:35 Sodium Level 138 Potassium Level 4.5 Chloride Level 102 Carbon Dioxide Level 32 H Anion Gap 4 L Blood Urea Nitrogen 17 Creatinine 0.94 Est Glomerular Filtrat Rate mL/min > 60 Glucose Level 95 Calcium Level 8.4 White Blood Count 4.5 L Red Blood Count 2.57 L Hemoglobin 7.6 L Hematocrit 23.6 L Mean Corpuscular Volume 91.8 Mean Corpuscular Hemoglobin 29.6 Mean Corpuscular Hemoglobin Concent 32.2 Red Cell Distribution Width 14.8 H Platelet Count 114 L Mean Platelet Volume 9.9 Immature Granulocytes % 0.200 Neutrophils % 63.8 Lymphocytes % 23.4 Monocytes % 10.2 Eosinophils % 2.2 Basophils % 0.2 Nucleated Red Blood Cells % 0.0 Immature Granulocytes # 0.010 Neutrophils # 2.9 Lymphocytes # 1.1 Monocytes # 0.5 Eosinophils # 0.1 Basophils # 0.0 Nucleated Red Blood Cells # 0.0 Specimen: [id number] Status: Resulted Deepak: 12/02/18 Rcvd: 12/02/18 Source: LEFT KNEE Sp Descrip: Procedure Result Microbiology GRAM STAIN Final POLYMORPH. LEUKOCYTE RARE . NO ORGANISM SEEN TISSUE (BIOPSY) CULTURE Preliminary Organism 1 PANTOEA AGGLOMERANS QUANTITY ISOLATED FROM BROTH ONLY No definitive guideline for susceptibilities. Medications Medication Current Medications Miscellaneous Information (* Miscellaneous Pharmacy Order) DURAMORPH: 0.2 MG SPI... GIVEN NEURAXIAL XX ; Start 12/02/18 at 13:30 IV Flush (NS 3 ml) 3 ml PER PROTOCOL IV ; Start 12/02/18 at 13:30 Ketorolac Tromethamine (Toradol) 15 mg Q6H PRN IV .PAIN Last administered on 12/02/18 19:22; Admin Dose 15 MG; Start 12/02/18 at 13:30 Ondansetron HCl (Zofran Inj) 4 mg Q4H PRN IV NAUSEA/VOMITING; Start 12/03/18 at 13:30 Celecoxib (Celebrex) 100 mg BID PO Last administered on 12/05/18 09:33; Admin Dose 100 MG; Start 12/03/18 at 09:00 Gabapentin (Neurontin) 100 mg TID PO Last administered on 12/05/18 09:33; Admin Dose 100 MG; Start 12/02/18 at 21:00 Docusate Sodium (Colace) 200 mg BID PO Last administered on 12/05/18 09:34; Admin Dose 200 MG; Start 12/03/18 at 09:00; Stop 12/06/18 at 08:59 Magnesium Hydroxide (Milk Of Mag) 30 ml HS PRN PO .CONSTIPATION; Start 12/02/18 at 13:30 Naloxone HCl (Narcan) 0.2 mg Q2M PRN IV .RESP RATE; Start 12/02/18 at 13:30 Aspirin (Halfprin) 81 mg BID PO Last administered on 12/05/18 09:33; Admin Do se 81 MG; Start 12/03/18 at 09:00 Vancomycin HCl 250 ml @ 125 mls/hr Q24H IVPB Last administered on 12/04/18 15:51; Admin Dose 125 MLS/HR; Start 12/02/18 at 15:00 Docusate Sodium (Colace) 200 mg DAILY PRN PO CONSTIPATION; Start 12/02/18 at 18:00 Duloxetine HCl (Cymbalta) 60 mg DAILY PO Last administered on 12/05/18 09:32; Admin Dose 60 MG; Start 12/03/18 at 09:00 Ferrous Sulfate (Ferrous Sulfate (Ec)) 325 mg DAILY PO Last administered on 12/05/18 09:33; Admin Dose 325 MG; Start 12/03/18 at 09:00 Metaxalone (Skelaxin) 800 mg QID PO Last administered on 12/05/18 09:34; Admin Dose 800 MG; Start 12/02/18 at 21:00 Nortriptyline HCl (Aventyl) 25 mg HS PO Last administered on 12/04/18 20:38; Admin Dose 25 MG; Start 12/02/18 at 21:00 Diphenhydramine HCl (Benadryl) 25 mg Q4H PRN IV PRURITIS Last administered on 12/03/18 02:32; Admin Dose 25 MG; Start 12/02/18 at 18:00 Pantoprazole (Protonix Tab) 40 mg DAILY@06 PO Last administered on 12/05/18 05:59; Admin Dose 40 MG; Start 12/03/18 at 06:00 Morphine Sulfate (morphine) 2 mg Q3H PRN IV breakthrough pain Last administered on 12/05/18 01:56; Admin Dose 2 MG; Start 12/02/18 at 20:30 Hydroxyzine HCl (Atarax) 25 mg Q6H PRN PO ITCHING Last administered on 12/03/18 04:12; Admin Dose 25 MG; Start 12/02/18 at 21:00 Trazodone HCl (Desyrel) 300 mg HS PO Last administered on 12/04/18 20:38; Admin Dose 300 MG; Start 12/02/18 at 23:30 Triamterene/HCTZ (Maxzide-25) 1 tab DAILY PO ; Start 12/04/18 at 09:00 Oxycodone HCl (Roxicodone) 15 mg Q4H PRN PO .PAIN Last administered on 12/05/18 00:46; Admin Dose 15 MG; Start 12/03/18 at 15:00 Oxycodone HCl (Roxicodone) 10 mg Q4H PRN PO .PAIN Last administered on 12/05/18 04:59; Admin Dose 10 MG; Start 12/03/18 at 15:00 Oxycodone HCl (Roxicodone) 5 mg Q4H PRN PO .PAIN; Start 12/03/18 at 15:00 Acetaminophen (Tylenol Tab) 1,000 mg Q8 PO Last administered on 12/05/18at 05:59; Admin Dose 1,000 MG; Start 12/03/18 at 22:00 IV Flush (NS 10 ml) 10 ml PRN PRN IV IV PROTOCOL; Start 12/03/18 at 21:00 Ceftriaxone Sodium 50 ml @ 100 mls/hr Q24H IVPB Last administered on 12/04/18at 14:33; Admin Dose 100 MLS/HR; Start 12/04/18 at 14:00 Phenol (Cepastat Lozenge) 1 lozenge Q1H PRN MT SORE THROAT Last administered on 12/05/18at 09:35; Admin Dose 1 LOZENGE; Start 12/05/18 at 08:30 MARLY SALCEDO NP December 05, 2018 09:55
[2018-12-05] MEDS: CEFTRIAXONE 1 GM/50 ML (PMX) 50 ML IVPB SCH (13:23)
[2018-12-05 14:51] VITALS: BP 103/55; PULSE 91; RESP 18
[2018-12-05] MEDS: VANCOMYCIN 1 GM (PMX) 250 ML IVPB SCH (15:05)
[2018-12-05 19:57] VITALS: BP 119/60; PULSE 103; RESP 18
[2018-12-05] MEDS: traZODone 100 MG TAB PO SCH (21:43)
[2018-12-05] MEDS: NORTRIPTYLINE 25 MG CAP PO SCH (21:43)
[2018-12-06 01:29] VITALS: BP 131/58; PULSE 95; RESP 20
[2018-12-06] MEDS: oxyCODONE 5 MG TAB PO PRN ×4 (01:41→21:51)
[2018-12-06] MEDS: PANTOPRAZOLE (EC) 40 MG TAB PO SCH (05:00)
[2018-12-06] MEDS: ACETAMINOPHEN 500 MG TAB PO SCH ×3 (05:00→22:19)
[2018-12-06] MEDS: TRIAMTERENE/HCTZ (37.5/25) TAB PO SCH (09:00)
[2018-12-06] MEDS: FERROUS SULFATE (EC) 325 MG TAB PO SCH (09:15)
[2018-12-06] MEDS: GABAPENTIN 100 MG CAP PO SCH ×3 (09:15→20:47)
[2018-12-06] MEDS: ASPIRIN (EC) 81 MG TAB PO SCH ×2 (09:18→20:47)
[2018-12-06] MEDS: DULOXETINE 30 MG CAP DR PO SCH (09:18)
[2018-12-06] MEDS: CELECOXIB 100 MG CAP PO SCH ×2 (09:18→20:47)
[2018-12-06] MEDS: METAXALONE 800 MG TAB PO SCH ×4 (09:19→20:48)
[2018-12-06 09:26] VITALS: BP 108/61; PULSE 95; RESP 19
[2018-12-06] MEDS: morphine 2 MG INJ IV PRN (12:29)
--- NOTE | 2018-12-06 14:35 | CONS ---
Assessment/Plan Assessment/Plan Hospital Course (Demo Recall) 1. Bilateral prosthetic knee infection 2. s/p Bilateral knee revision, stage I with removal of implants and placement of antibiotic spacer 3. Hx of obesity 4. Hx of htn 5. hx of susan 6. hx of oa 7. hx of depression R: ok for d/c from ID perspective cont. vanco add ctx monitor crcl monitor plts obtain outpt/other hospital records await intra-op cx we would be happy and available to see her in f/u in the office if she is unable to f/u with Dr. Carmen crawley Consultation Date/Type/Reason Admit Date/Time December 02, 2018 at 06:44 Initial Consult Date 12/04/18 Type of Consult ID Requesting Provider: LEONOR ANDRE MD Date/Time of Note DATE: 12/06/18 TIME: 14:34 Exam/Review of Systems Exam Vitals Vital Signs Date Temp Pulse Resp B/P (MAP) Pulse Ox O2 O2 Flow FiO2 Time Delivery Rate 12/06/18 98.2 95 19 108/61 100 09:26 (77) 12/06/18 CPAP 01:29 Intake and Output 12/05/18 12/05/18 12/06/18 1515:00 23:00 07:00 IntakeIntake Total 50 ml 450 ml 1200 ml BalanceBalance 50 ml 450 ml 1200 ml Eyes: nl sclera, PERRL Results Result Diagram: 12/06/18 0449 12/06/18 0449 Results 24hrs Laboratory Tests Test 12/06/18 04:49 White Blood Count 5.3 Red Blood Count 2.51 L Hemoglobin 7.3 L Hematocrit 23.9 L Mean Corpuscular Volume 95.2 Mean Corpuscular Hemoglobin 29.1 Mean Corpuscular Hemoglobin Concent 30.5 L Red Cell Distribution Width 14.7 H Platelet Count 134 L Mean Platelet Volume 10.2 Immature Granulocytes % 0.400 Neutrophils % 74.4 Lymphocytes % 14.4 L Monocytes % 8.3 Eosinophils % 2.3 Basophils % 0.2 Nucleated Red Blood Cells % 0.0 Immature Granulocytes # 0.020 Neutrophils # 3.9 Lymphocytes # 0.8 Monocytes # 0.4 Eosinophils # 0.1 Basophils # 0.0 Nucleated Red Blood Cells # 0.0 Sodium Level 136 Potassium Level 4.3 Chloride Level 102 Carbon Dioxide Level 31 Anion Gap 3 L Blood Urea Nitrogen 19 Creatinine 0.94 Est Glomerular Filtrat Rate mL/min > 60 Glucose Level 109 Calcium Level 8.3 L Medications Medication Current Medications Miscellaneous Information (* Miscellaneous Pharmacy Order) DURAMORPH: 0.2 MG SPI... GIVEN NEURAXIAL XX ; Start 12/02/18 at 13:30 IV Flush (NS 3 ml) 3 ml PER PROTOCOL IV ; Start 12/02/18 at 13:30 Ketorolac Tromethamine (Toradol) 15 mg Q6H PRN IV .PAIN Last administered on 12/02/18 19:22; Admin Dose 15 MG; Start 12/02/18 at 13:30 Ondansetron HCl (Zofran Inj) 4 mg Q4H PRN IV NAUSEA/VOMITING; Start 12/03/18 at 13:30 Celecoxib (Celebrex) 100 mg BID PO Last administered on 12/06/18 09:18; Admin Dose 100 MG; Start 12/03/18 at 09:00 Gabapentin (Neurontin) 100 mg TID PO Last administered on 12/06/18 12:29; Admin Dose 100 MG; Start 12/02/18 at 21:00 Magnesium Hydroxide (Milk Of Mag) 30 ml HS PRN PO .CONSTIPATION Last administered on 12/05/18 13:29; Admin Dose 30 ML; Start 12/02/18 at 13:30 Naloxone HCl (Narcan) 0.2 mg Q2M PRN IV .RESP RATE; Start 12/02/18 at 13:30 Aspirin (Halfprin) 81 mg BID PO Last administered on 12/06/18 09:18; Admin Dos e 81 MG; Start 12/03/18 at 09:00 Vancomycin HCl 250 ml @ 125 mls/hr Q24H IVPB Last administered on 12/05/18 15:05; Admin Dose 125 MLS/HR; Start 12/02/18 at 15:00 Docusate Sodium (Colace) 200 mg DAILY PRN PO CONSTIPATION Last administered on 12/06/18 09:17; Admin Dose 200 MG; Start 12/02/18 at 18:00 Duloxetine HCl (Cymbalta) 60 mg DAILY PO Last administered on 12/06/18 09:18; Admin Dose 60 MG; Start 12/03/18 at 09:00 Ferrous Sulfate (Ferrous Sulfate (Ec)) 325 mg DAILY PO Last administered on 12/06/18 09:15; Admin Dose 325 MG; Start 12/03/18 at 09:00 Metaxalone (Skelaxin) 800 mg QID PO Last administered on 12/06/18 12:29; Admin Dose 800 MG; Start 12/02/18 at 21:00 Nortriptyline HCl (Aventyl) 25 mg HS PO Last administered on 12/05/18 21:43; Admin Dose 25 MG; Start 12/02/18 at 21:00 Diphenhydramine HCl (Benadryl) 25 mg Q4H PRN IV PRURITIS Last administered on 12/03/18 02:32; Admin Dose 25 MG; Start 12/02/18 at 18:00 Pantoprazole (Protonix Tab) 40 mg DAILY@06 PO Last administered on 12/06/18 05:00; Admin Dose 40 MG; Start 12/03/18 at 06:00 Morphine Sulfate (morphine) 2 mg Q3H PRN IV breakthrough pain Last administered on 12/06/18 12:29; Admin Dose 2 MG; Start 12/02/18 at 20:30 Hydroxyzine HCl (Atarax) 25 mg Q6H PRN PO ITCHING Last administered on 12/03/18 04:12; Admin Dose 25 MG; Start 12/02/18 at 21:00 Trazodone HCl (Desyrel) 300 mg HS PO Last administered on 12/05/18 21:43; Admin Dose 300 MG; Start 12/02/18 at 23:30 Triamterene/HCTZ (Maxzide-25) 1 tab DAILY PO ; Start 12/04/18 at 09:00 Oxycodone HCl (Roxicodone) 15 mg Q4H PRN PO .PAIN Last administered on 12/06/18 09:19; Admin Dose 15 MG; Start 12/03/18 at 15:00 Oxycodone HCl (Roxicodone) 10 mg Q4H PRN PO .PAIN Last administered on 12/06/18 01:41; Admin Dose 10 MG; Start 12/03/18 at 15:00 Oxycodone HCl (Roxicodone) 5 mg Q4H PRN PO .PAIN; Start 5/24/19 at 15:00 Acetaminophen (Tylenol Tab) 1,000 mg Q8 PO Last administered on 12/06/18at 05:00; Admin Dose 1,000 MG; Start 12/03/18 at 22:00 IV Flush (NS 10 ml) 10 ml PRN PRN IV IV PROTOCOL; Start 12/03/18 at 21:00 Ceftriaxone Sodium 50 ml @ 100 mls/hr Q24H IVPB Last administered on 12/05/18at 13:23; Admin Dose 100 MLS/HR; Start 12/04/18 at 14:00 Phenol (Cepastat Lozenge) 1 lozenge Q1H PRN MT SORE THROAT Last administered on 12/05/18at 09:35; Admin Dose 1 LOZENGE; Start 12/05/18 at 08:30 GARLAND GALLEGOS MD December 06, 2018 14:35
--- NOTE | 2018-12-06 14:37 | PN ---
Date/Time of Note Date/Time of Note DATE: 12/06/18 TIME: 14:32 Assessment/Plan Lines/Catheters IV Catheter Type (from Nrsg): PICC Line Husain in Place (from Nrsg): No Assessment/Plan Chief Complaint/Hosp Course POD#4 s/p bilateral stage I revision TKA Patient to wear a knee immobilizer on right lower extremity when out of bed to assist with ambulating. Patient's pain is better controlled today. Plan on discharging patient home with IV antibiotics. New cultures are growing. We will likely keep patient for 5 days postop in order to determine final antib iotic regimen. -Continue to follow cultures. Pantoea Agglomerans is growing from left knee culture. Infectious disease did add ceftriaxone. Will need to follow-up with infectious disease to determine if this is the final recommendation. -PICC line inserted -Post op H&H stable -PT/OT -Joints pain control protocol -DVT prophylaxis: SCD's, ASA 81 mg twice daily -Weight bearing status: as tolerated. Knee immobilizer on right lower extremity when bearing weight. -Abx: IV vancomycin and ceftriaxone x6 weeks -Diet: ADAT -Husain: Discontinue today versus tomorrow -Discharge planning consult. Patient is determined to go home with IV antibiotics. She will require IV antibiotics x6 weeks. She will need to follow-up with Dr. Neymar Morales from infectious disease at [place]. Planned Discharge Date: 12/06 versed 12/07 Discharge to home with home health and IV antibiotics Subjective 24 Hr Interval Summary Patient doing well No acute events overnight Pain is well controlled Exam/Review of Systems Vital Signs Vitals Vital Signs Date Temp Pulse Resp B/P (MAP) Pulse Ox O2 O2 Flow FiO2 Time Delivery Rate 12/06/18 98.2 95 19 108/61 100 09:26 (77) 12/06/18 CPAP 01:29 Intake and Output 12/05/18 12/05/18 12/06/18 1515:00 23:00 07:00 IntakeIntake Total 50 ml 450 ml 1200 ml BalanceBalance 50 ml 450 ml 1200 ml Exam Free Text/Dictation Bilateral lower extremity: Dressing: clean, dry, and intact, no erythema Sensation intact to light touch in a sural, saphenous, deep peroneal, superficial peroneal, medial and lateral plantar nerve distribution. Motor is intact, patient able to dorsiflex and plantarflex ankle and extend and flex great toe. Dorsalis Pedis pulse +2, Brisk capillary refill. Compartments are soft. Calves non-tender to palpation bilaterally. Results Result Diagram: 12/06/18 0449 12/06/18 0449 DIDIER OVIEDO MD December 06, 2018 14:37
[2018-12-06] MEDS: CEFTRIAXONE 1 GM/50 ML (PMX) 50 ML IVPB SCH (15:06)
[2018-12-06] MEDS: VANCOMYCIN 1 GM (PMX) 250 ML IVPB SCH (15:50)
--- NOTE | 2018-12-06 17:16 | PN ---
Date/Time of Note Date/Time of Note DATE: 12/06/18 TIME: 17:10 Assessment/Plan VTE Prophylaxis Risk score (from Nsg)>0 risk: 6 SCD applied (from Nsg): Yes Pharmacological prophylaxis: other Lines/Catheters IV Catheter Type (from Nrsg): PICC Line Central line still needed: Yes Urinary Cath still in place: No Assessment/Plan Hospital Course Pain is adequately controlled, patient has some progress with PT, pending arrangement for home health antibiotics wound care and PT. Assessment/Plan -Bilateral knee infection. S/p Bilateral knee revision, stage I with removal of implants and placement of antibiotic spacer. Continue IV antibiotics per ID. Dr Cox is following in infection disease consultation. Continue [place] and morphine as needed for pain and Zofran as needed for nausea. -Hypertension, continue Maxzide -Chronic kidney disease stage III continue to monitor BUN and creatinine. -GERD, continue Protonix -Depression, continue home anti-depressants. Further recommendations based on clinical course. Plan of care discussed with Dr. Huggins. Result Diagram: 12/06/18 0449 12/06/18 0449 Results 24hrs Laboratory Tests Test 12/06/18 04:49 12/06/18 13:44 White Blood Count 5.3 Red Blood Count 2.51 L Hemoglobin 7.3 L Hematocrit 23.9 L Mean Corpuscular Volume 95.2 Mean Corpuscular Hemoglobin 29.1 Mean Corpuscular Hemoglobin Concent 30.5 L Red Cell Distribution Width 14.7 H Platelet Count 134 L Mean Platelet Volume 10.2 Immature Granulocytes % 0.400 Neutrophils % 74.4 Lymphocytes % 14.4 L Monocytes % 8.3 Eosinophils % 2.3 Basophils % 0.2 Nucleated Red Blood Cells % 0.0 Immature Granulocytes # 0.020 Neutrophils # 3.9 Lymphocytes # 0.8 Monocytes # 0.4 Eosinophils # 0.1 Basophils # 0.0 Nucleated Red Blood Cells # 0.0 Sodium Level 136 Potassium Level 4.3 Chloride Level 102 Carbon Dioxide Level 31 Anion Gap 3 L Blood Urea Nitrogen 19 Creatinine 0.94 Est Glomerular Filtrat Rate mL/min > 60 Glucose Level 109 Calcium Level 8.3 L Vancomycin Level Trough 8.7 L Exam/Review of Systems Exam Vitals Vital Signs Date Temp Pulse Resp B/P (MAP) Pulse Ox O2 O2 Flow FiO2 Time Delivery Rate 12/06/18 98.2 95 19 108/61 100 09:26 (77) 12/06/18 CPAP 01:29 Intake and Output 12/05/18 12/05/18 12/06/18 1515:00 23:00 07:00 IntakeIntake Total 50 ml 450 ml 1200 ml BalanceBalance 50 ml 450 ml 1200 ml Exam Constitutional: alert, oriented Respiratory: clear to auscultation Cardiovascular: nl pulse Gastrointestinal: soft, non-tender Musculoskeletal: other (Status post bilateral knee surgery) Extremities: normal pulses Neurological: nl mental status Results Results 24hrs Laboratory Tests Test 12/06/18 04:49 12/06/18 13:44 White Blood Count 5.3 Red Blood Count 2.51 L Hemoglobin 7.3 L Hematocrit 23.9 L Mean Corpuscular Volume 95.2 Mean Corpuscular Hemoglobin 29.1 Mean Corpuscular Hemoglobin Concent 30.5 L Red Cell Distribution Width 14.7 H Platelet Count 134 L Mean Platelet Volume 10.2 Immature Granulocytes % 0.400 Neutrophils % 74.4 Lymphocytes % 14.4 L Monocytes % 8.3 Eosinophils % 2.3 Basophils % 0.2 Nucleated Red Blood Cells % 0.0 Immature Granulocytes # 0.020 Neutrophils # 3.9 Lymphocytes # 0.8 Monocytes # 0.4 Eosinophils # 0.1 Basophils # 0.0 Nucleated Red Blood Cells # 0.0 Sodium Level 136 Potassium Level 4.3 Chloride Level 102 Carbon Dioxide Level 31 Anion Gap 3 L Blood Urea Nitrogen 19 Creatinine 0.94 Est Glomerular Filtrat Rate mL/min > 60 Glucose Level 109 Calcium Level 8.3 L Vancomycin Level Trough 8.7 L Medications Medication Current Medications Miscellaneous Information (* Miscellaneous Pharmacy Order) DURAMORPH: 0.2 MG SPI... GIVEN NEURAXIAL XX ; Start 12/02/18 at 13:30 IV Flush (NS 3 ml) 3 ml PER PROTOCOL IV ; Start 12/02/18 at 13:30 Ketorolac Tromethamine (Toradol) 15 mg Q6H PRN IV .PAIN Last administered on 12/02/18at 19:22; Admin Dose 15 MG; Start 12/02/18 at 13:30 Ondansetron HCl (Zofran Inj) 4 mg Q4H PRN IV NAUSEA/VOMITING; Start 12/03/18 at 13:30 Celecoxib (Celebrex) 100 mg BID PO Last administered on 12/06/18 09:18; Admin Dose 100 MG; Start 12/03/18 at 09:00 Gabapentin (Neurontin) 100 mg TID PO Last administered on 12/06/18 12:29; Admin Dose 100 MG; Start 12/02/18 at 21:00 Magnesium Hydroxide (Milk Of Mag) 30 ml HS PRN PO .CONSTIPATION Last administered on 12/05/18 13:29; Admin Dose 30 ML; Start 12/02/18 at 13:30 Naloxone HCl (Narcan) 0.2 mg Q2M PRN IV .RESP RATE; Start 12/02/18 at 13:30 Aspirin (Halfprin) 81 mg BID PO Last administered on 12/06/18 09:18; Admin Dose 81 MG; Start 12/03/18 at 09:00 Vancomycin HCl 250 ml @ 125 mls/hr Q24H IVPB Last administered on 12/06/18 15:50; Admin Dose 125 MLS/HR; Start 12/02/18 at 15:00; Stop 12/06/18 at 18:00 Docusate Sodium (Colace) 200 mg DAILY PRN PO CONSTIPATION Last administered on 12/06/18 09:17; Admin Dose 200 MG; Start 12/02/18 at 18:00 Duloxetine HCl (Cymbalta) 60 mg DAILY PO Last administered on 12/06/18 09:18; Admin Dose 60 MG; Start 12/03/18 at 09:00 Ferrous Sulfate (Ferrous Sulfate (Ec)) 325 mg DAILY PO Last administered on 12/06/18 09:15; Admin Dose 325 MG; Start 12/03/18 at 09:00 Metaxalone (Skelaxin) 800 mg QID PO Last administered on 12/06/18 12:29; Admin Dose 800 MG; Start 12/02/18 at 21:00 Nortriptyline HCl (Aventyl) 25 mg HS PO Last administered on 12/05/18 21:43; Admin Dose 25 MG; Start 12/02/18 at 21:00 Diphenhydramine HCl (Benadryl) 25 mg Q4H PRN IV PRURITIS Last administered on 12/03/18 02:32; Admin Dose 25 MG; Start 12/02/18 at 18:00 Pantoprazole (Protonix Tab) 40 mg DAILY@06 PO Last administered on 12/06/18 05:00; Admin Dose 40 MG; Start 12/03/18 at 06:00 Morphine Sulfate (morphine) 2 mg Q3H PRN IV breakthrough pain Last administered on 12/06/18 12:29; Admin Dose 2 MG; Start 12/02/18 at 20:30 Hydroxyzine HCl (Atarax) 25 mg Q6H PRN PO ITCHING Last administered on 12/03/18 04:12; Admin Dose 25 MG; Start 12/02/18 at 21:00 Trazodone HCl (Desyrel) 300 mg HS PO Last administered on 12/05/18 21:43; Admin Dose 300 MG; Start 12/02/18 at 23:30 Triamterene/HCTZ (Maxzide-25) 1 tab DAILY PO ; Start 12/04/18 at 09:00 Oxycodone HCl (Roxicodone) 15 mg Q4H PRN PO .PAIN Last administered on 12/06/18 09:19; Admin Dose 15 MG; Start 12/03/18 at 15:00 Oxycodone HCl (Roxicodone) 10 mg Q4H PRN PO .PAIN Last administered on 12/06/18 01:41; Admin Dose 10 MG; Start 12/03/18 at 15:00 Oxycodone HCl (Roxicodone) 5 mg Q4H PRN PO .PAIN; Start 12/03/18 at 15:00 Acetaminophen (Tylenol Tab) 1,000 mg Q8 PO Last administered on 12/06/18 15:06; Admin Dose 1,000 MG; Start 12/03/18 at 22:00 IV Flush (NS 10 ml) 10 ml PRN PRN IV IV PROTOCOL; Start 12/03/18 at 21:00 Ceftriaxone Sodium 50 ml @ 100 mls/hr Q24H IVPB Last administered on 12/06/18 15:06; Admin Dose 100 MLS/HR; Start 12/04/18 at 14:00 Phenol (Cepastat Lozenge) 1 lozenge Q1H PRN MT SORE THROAT Last administered on 12/05/18 09:35; Admin Dose 1 LOZENGE; Start 12/05/18 at 08:30 Vancomycin HCl 1.5 gm/Sodium Chloride 250 ml @ 83.333 mls/ hr Q24H IVPB ; Start 12/07/18 at 11:00 LONA HEAD December 06, 2018 17:16
[2018-12-06 19:17] VITALS: BP 110/57; PULSE 100; RESP 18
[2018-12-06 20:22] VITALS: BP 101/65; PULSE 97; RESP 18
[2018-12-06] MEDS: NITROGLYCERIN 2% 1 GM OINT PKT TD SCH (20:47)
[2018-12-06] MEDS: NORTRIPTYLINE 25 MG CAP PO SCH (20:47)
[2018-12-06] MEDS: traZODone 100 MG TAB PO SCH (20:48)
[2018-12-06 21:20] VITALS: PULSE 97
[2018-12-07] VITALS (12 sets, daily range): BP systolic 94–114; BP diastolic 50–57; PULSE 86–101; RESP 20
[2018-12-07] MEDS ORDERED: ALTEPLASE (CATHFLO) 2 MG INJ CATHETER PRN (02:00)
[2018-12-07] MEDS: ACETAMINOPHEN 500 MG TAB PO SCH ×3 (06:05→22:13)
[2018-12-07] MEDS: PANTOPRAZOLE (EC) 40 MG TAB PO SCH (06:05)
[2018-12-07] MEDS: TRIAMTERENE/HCTZ (37.5/25) TAB PO SCH ×2 (08:56→09:00)
[2018-12-07] MEDS: FERROUS SULFATE (EC) 325 MG TAB PO SCH (08:56)
[2018-12-07] MEDS: NITROGLYCERIN 2% 1 GM OINT PKT TD SCH (08:56)
[2018-12-07] MEDS: METAXALONE 800 MG TAB PO SCH ×4 (08:56→20:46)
[2018-12-07] MEDS: DULOXETINE 30 MG CAP DR PO SCH (08:56)
[2018-12-07] MEDS: GABAPENTIN 100 MG CAP PO SCH ×3 (08:57→22:13)
[2018-12-07] MEDS: ASPIRIN (EC) 81 MG TAB PO SCH ×2 (08:57→20:46)
[2018-12-07] MEDS: CELECOXIB 100 MG CAP PO SCH ×2 (09:00→20:46)
[2018-12-07] MEDS: VANCOMYCIN HCL 1.5 GM in SOD CHLORIDE 0.9% 250 ML IVPB SCH (10:28)
--- NOTE | 2018-12-07 11:23 | RADRPT ---
Echocardiogram Report Patient Name: PAULA GUERRAPatient ID: [id number] : 1955 ([id number] )Study Date: 12/07/2018 7:42:07 AM Gender: FAccession #: [id number] Tech: [place] Location: [facility] Ref.Physician: LEONOR ANDRE Height(Cm): BSA: Weight(Kg): Quality: GoodOrder Physician: LEONOR ANDRE Account #: Procedures: Echocardiographic Report: Transthoracic echocardiogram with complete 2D, M-Mode, and doppler examination. Indications: Chest Pain. Measurements: 2D/M Mode Doppler Measurement Value Normal Range Measurement Value Normal Range LVIDd 2D 4.3 [ 3.8 - 5.2 ] cm AV Peak Osmin 1.7 [ 100.0 - 170.0 ] cm/sec LVIDs 2D 2.0 [ 2.2 - 3.5 ] cm AV Peak PG 12.0 [ 2.0 - 9.0 ] mmHg LVPWd 2D 1.1 [ 0.6 - 0.9 ] cm AI Peak PG 50.0 mmHg IVSd 2D 1.1 [ 0.6 - 0.9 ] cm AI Peak Osmin 3.5 cm/sec AoR Diam 2D 3.4 [ 2.3 - 3.1 ] cm AI PHT 398.0 msec EDV 2D 84.9 [ 46.0 - 106.0 ] ml LVOT Peak Osmin 1.5 [ 70.0 - 110.0 ] cm/sec ESV 2D 13.2 [ 14.0 - 42.0 ] ml LVOT Peak PG 8.0 [ 2.0 - 6.0 ] mmHg EF 2D 84.5 [ 54.0 - 74.0 ] percent MV E Peak Osmin 0.8 [ 60.0 - 130.0 ] cm/sec LA Dimen 2D 3.6 [ 2.7 - 3.8 ] cm MV A Peak Osmin 1.1 [ 100.0 - 120.0 ] cm/sec MV E/A 0.8 [ 0.8 - 1.5 ] ratio MV Decel Time 208 [ 104 - 258 ] msec Lat E` Osmin 0.1 [ 10.0 - 15.0 ] cm/sec Lateral E/E` 11.4 [ 1.0 - 2.0 ] ratio MV E/A 0.8 [ 0.8 - 1.5 ] ratio Findings: Left Ventricle: Normal left ventricular systolic function. Normal left ventricular cavity size. Mild concentric left ventricular hypertrophy. Ejection fraction is visually estimated at 65 %. Tissue Doppler/Mitral Doppler indices are consistent with impaired relaxation (Stage I diastolic dysfunction). Right Ventricle: Normal right ventricular size. Normal right ventricular systolic function. Left Atrium: The left atrium is normal in size. Right Atrium: The right atrium is normal in size. Mitral Valve: Normal appearance of the mitral valve. Mild mitral annular calcification. Trace mitral regurgitation. Aortic Valve: No significant aortic stenosis or insufficiency. Aortic cusps appear mildly calcified. Tricuspid Valve: Normal appearance of the tricuspid valve. Unable to obtain RVSP due to minimal presence of tricuspid regurgitation. Pulmonic Valve: Normal pulmonic valve appearance. Pericardium: Normal pericardium with no significant pericardial effusion. Aorta: Normal aortic root. IVC: Normal size and normal respiratory collapse consistent with normal right atrial pressure. Conclusions: Normal left ventricular systolic function. Normal left ventricular cavity size. Mild concentric left ventricular hypertrophy. Ejection fraction is visually estimated at 65 %. Tissue Doppler/Mitral Doppler indices are consistent with impaired relaxation (Stage I diastolic dysfunction). Normal appearance of the mitral valve. Mild mitral annular calcification. Trace mitral regurgitation. Normal appearance of the tricuspid valve. Unable to obtain RVSP due to minimal presence of tricuspid regurgitation. Electronically Signed By: Andrea Garza 2018-12-07 11:23:03 PDT
[2018-12-07] MEDS ORDERED: NITROGLYCERIN (SL) 0.4 MG TAB SL PRN (11:30)
--- NOTE | 2018-12-07 12:44 | CONS ---
Consultation Date/Type/Reason Admit Date/Time December 02, 2018 at 06:44 Type of Consult Cardiology Date/Time of Note DATE: 12/07/18 TIME: 12:43 Hx of Present Illness Doubt ACS, but given risk factors for CAD, will schedule stress test for tomorrow. Hold d/c now please. # [id number] [facility] note dictated Past Medical History Home Meds Reported Medications Docusate Sodium* (Docusate Sodium*) 100 Mg Capsule, 200 MG PO DAILY PRN for CONSTIPATION, #30 CAP 12/02/18 Multivitamins* (Theragran*) 1 Tab Tab, 1 TAB PO DAILY, TAB 12/02/18 Ferrous Sulfate* (Ferrous Sulfate*) 325 Mg Tabec, 325 MG PO DAILY, TAB 12/02/18 Calcium Citrate* (Citracal*) 950 Mg Tab, 2000 MG PO DAILY, TAB 12/02/18 Gabapentin* (Gabapentin*) 100 Mg Capsule, 100 MG PO Q8H, #90 CAP 12/02/18 Nortriptyline Hcl* (Nortriptyline Hcl*) 25 Mg Capsule, 25 MG PO HS, CAP 12/02/18 Diclofenac Sodium* (Voltaren* Gel) 1% -100 Gm Gel, 2 GM TOP QID, #1 TUB 11/22/18 Butalb/Acetaminophen/Caffeine (VNQCOI-[id number] 50-300-40) 1 Each Capsule, 1 EACH PO PRN PRN for HEADACHE, CAP 11/22/18 Omeprazole* (Omeprazole*) 40 Mg Capsule.dr, 40 MG PO DAILY, #30 CAP 11/22/18 Ergocalciferol (Vitamin D2) (VITAMIN D2) 2,000 Unit Tablet, 2000 UNIT PO DAILY, TAB 11/22/18 Metaxalone* (Metaxalone*) 800 Mg Tablet, 800 MG PO QID, TAB 11/22/18 Trazodone Hcl* (Trazodone Hcl*) 300 Mg Tablet, 300 MG PO QHS, #30 TAB 11/22/18 Triamterene/Hctz* (Maxzide (37.5-25)*) 1 Each Tablet, 0.5 EACH PO AT 3PM, #30 TAB 11/22/18 Triamterene/Hctz* (Maxzide (37.5-25)*) 1 Each Tablet, 0.5 EACH PO BID, #30 TAB 11/22/18 Topiramate* (Topiramate*) 25 Mg Tablet, 3 TAB ORAL QAM PRN for HEADACHE, TAB 11/22/18 Duloxetine Hcl* (Duloxetine Hcl*) 60 Mg Capsule.dr, 60 MG PO DAILY, #30 CAP 11/22/18 Discontinued Reported Medications Docusate Sodium* (Dok*) 250 Mg Capsule, 250 MG PO DAILY PRN for CONSTIPATION, #30 CAP 11/22/18 Nortriptyline Hcl* (Nortriptyline Hcl*) 10 Mg Capsule, 10 MG PO HS, CAP 11/22/18 Medications Current Medications Miscellaneous Information (* Miscellaneous Pharmacy Order) DURAMORPH: 0.2 MG SPI... GIVEN NEURAXIAL XX ; Start 12/02/18 at 13:30 IV Flush (NS 3 ml) 3 ml PER PROTOCOL IV ; Start 12/02/18 at 13:30 Ketorolac Tromethamine (Toradol) 15 mg Q6H PRN IV .PAIN Last administered on 12/02/18at 19:22; Admin Dose 15 MG; Start 12/02/18 at 13:30 Ondansetron HCl (Zofran Inj) 4 mg Q4H PRN IV NAUSEA/VOMITING Last administered on 12/06/18 19:24; Admin Dose 4 MG; Start 12/03/18 at 13:30 Celecoxib (Celebrex) 100 mg BID PO Last administered on 12/07/18 09:00; Admin Dose 100 MG; Start 12/03/18 at 09:00 Gabapentin (Neurontin) 100 mg TID PO Last administered on 12/07/18at 08:57; Admin Dose 100 MG; Start 12/02/18 at 21:00 Magnesium Hydroxide (Milk Of Mag) 30 ml HS PRN PO .CONSTIPATION Last administered on 12/05/18 13:29; Admin Dose 30 ML; Start 12/02/18 at 13:30 Naloxone HCl (Narcan) 0.2 mg Q2M PRN IV .RESP RATE; Start 12/02/18 at 13:30 Aspirin (Halfprin) 81 mg BID PO Last administered on 12/07/18 08:57; Admin Dose 81 MG; Start 12/03/18 at 09:00 Docusate Sodium (Colace) 200 mg DAILY PRN PO CONSTIPATION Last administered on 12/06/18 09:17; Admin Dose 200 MG; Start 12/02/18 at 18:00 Duloxetine HCl (Cymbalta) 60 mg DAILY PO Last administered on 12/07/18 08:56; Admin Dose 60 MG; Start 12/03/18 at 09:00 Ferrous Sulfate (Ferrous Sulfate (Ec)) 325 mg DAILY PO Last administered on 12/07/18 08:56; Admin Dose 325 MG; Start 12/03/18 at 09:00 Metaxalone (Skelaxin) 800 mg QID PO Last administered on 12/07/18 08:56; Admin Dose 800 MG; Start 12/02/18 at 21:00 Nortriptyline HCl (Aventyl) 25 mg HS PO Last administered on 12/06/18 20:47; Admin Dose 25 MG; Start 12/02/18 at 21:00 Diphenhydramine HCl (Benadryl) 25 mg Q4H PRN IV PRURITIS Last administered on 12/03/18 02:32; Admin Dose 25 MG; Start 12/02/18 at 18:00 Pantoprazole (Protonix Tab) 40 mg DAILY@06 PO Last administered on 12/07/18 06:05; Admin Dose 40 MG; Start 12/03/18 at 06:00 Morphine Sulfate (morphine) 2 mg Q3H PRN IV breakthrough pain Last administered on 12/06/18 12:29; Admin Dose 2 MG; Start 12/02/18 at 20:30 Hydroxyzine HCl (Atarax) 25 mg Q6H PRN PO ITCHING Last administered on 12/03/18 04:12; Admin Dose 25 MG; Start 12/02/18 at 21:00 Trazodone HCl (Desyrel) 300 mg HS PO Last administered on 12/06/18 20:48; Admin Dose 300 MG; Start 12/02/18 at 23:30 Triamterene/HCTZ (Maxzide-25) 1 tab DAILY PO ; Start 12/04/18 at 09:00 Oxycodone HCl (Roxicodone) 15 mg Q4H PRN PO .PAIN Last administered on 12/06/18 21:51; Admin Dose 15 MG; Start 12/03/18 at 15:00 Oxycodone HCl (Roxicodone) 10 mg Q4H PRN PO .PAIN Last administered on 12/06/18at 01:41; Admin Dose 10 MG; Start 12/03/18 at 15:00 Oxycodone HCl (Roxicodone) 5 mg Q4H PRN PO .PAIN; Start 12/03/18 at 15:00 Acetaminophen (Tylenol Tab) 1,000 mg Q8 PO Last administered on 12/07/18 06:0 5; Admin Dose 1,000 MG; Start 12/03/18 at 22:00 IV Flush (NS 10 ml) 10 ml PRN PRN IV IV PROTOCOL; Start 12/03/18 at 21:00 Ceftriaxone Sodium 50 ml @ 100 mls/hr Q24H IVPB Last administered on 12/06/18at 15:06; Admin Dose 100 MLS/HR; Start 12/04/18 at 14:00 Phenol (Cepastat Lozenge) 1 lozenge Q1H PRN MT SORE THROAT Last administered on 12/05/18at 09:35; Admin Dose 1 LOZENGE; Start 12/05/18 at 08:30 Vancomycin HCl 1.5 gm/Sodium Chloride 250 ml @ 83.333 mls/ hr Q24H IVPB Last administered on 12/07/18at 10:28; Admin Dose 83.333 MLS/HR; Start 12/07/18 at 11:00 Alteplase, Recombinant (Cathflo (Activase)) 2 mg MAY REPEAT X1 PRN CATHETER IF CATHETER REMAINS OCCULUDED Last administered on 12/07/18 03:41; Admin Dose 2 MG; Start 12/07/18 at 02:00 Nitroglycerin (Nitroglycerin (Sl Tab) 0.4 Mg) 1 tab Q5M PRN SL ANGINA Last administered on 12/07/18 12:10; Admin Dose 1 TAB; Start 12/07/18 at 11:30 Allergies: Coded Allergies: Iodinated Contrast- Oral and IV Dye (Verified Allergy, Severe, ANAPHALYTIC, 12/02/18) Penicillins (Verified Adverse Reaction, Intermediate, ITCHING, 12/02/18) hydromorphone (Verified Adverse Reaction, Intermediate, ITCHING, 12/02/18) oxycodone (Verified Adverse Reaction, Intermediate, ITCHING, 12/02/18) Past Surgical History Past Surgical Hx: other Social History Alcohol Use: none Smoking Status: Never smoker Drug Use: none Exam/Review of Systems Vital Signs Vitals Vital Signs Date Temp Pulse Resp B/P (MAP) Pulse Ox O2 O2 Flow FiO2 Time Delivery Rate 12/07/18 89 12:33 12/07/18 98.3 20 94/50 (65) 97 Room Air 11:32 Intake and Output 12/06/18 12/06/18 12/07/18 1515:00 23:00 07:00 IntakeIntake Total 980 ml 200 ml OutputOutput Total 2 ml BalanceBalance 980 ml 198 ml Labs Result Diagram: 12/07/18 0459 12/07/18 0459 Results 24hrs Laboratory Tests Test 12/06/18 13:44 12/07/18 00:40 12/07/18 04:59 Vancomycin Level Trough 8.7 L Troponin I < 0.012 < 0.012 White Blood Count 5.7 Red Blood Count 2.58 L Hemoglobin 7.7 L Hematocrit 24.4 L Mean Corpuscular Volume 94.6 Mean Corpuscular Hemoglobin 29.8 Mean Corpuscular Hemoglobin Concent 31.6 L Red Cell Distribution Width 15.2 H Platelet Count 152 Mean Platelet Volume 10.1 Immature Granulocytes % 0.200 Neutrophils % 69.6 Lymphocytes % 16.4 Monocytes % 11.3 H Eosinophils % 2.3 Basophils % 0.2 Nucleated Red Blood Cells % 0.0 Immature Granulocytes # 0.010 Neutrophils # 4.0 Lymphocytes # 0.9 Monocytes # 0.6 Eosinophils # 0.1 Basophils # 0.0 Nucleated Red Blood Cells # 0.0 Sodium Level 136 Potassium Level 4.1 Chloride Level 104 Carbon Dioxide Level 31 Anion Gap 1 L Blood Urea Nitrogen 20 Creatinine 0.95 Est Glomerular Filtrat Rate mL/min 60 Glucose Level 87 Calcium Level 8.3 L Medications Medications Current Medications Miscellaneous Information (* Miscellaneous Pharmacy Order) DURAMORPH: 0.2 MG SPI... GIVEN NEURAXIAL XX ; Start 12/02/18 at 13:30 IV Flush (NS 3 ml) 3 ml PER PROTOCOL IV ; Start 12/02/18 at 13:30 Ketorolac Tromethamine (Toradol) 15 mg Q6H PRN IV .PAIN Last administered on 12/02/18at 19:22; Admin Dose 15 MG; Start 12/02/18 at 13:30 Ondansetron HCl (Zofran Inj) 4 mg Q4H PRN IV NAUSEA/VOMITING Last administered on 12/06/18 19:24; Admin Dose 4 MG; Start 12/03/18 at 13:30 Celecoxib (Celebrex) 100 mg BID PO Last administered on 12/07/18 09:00; Admin Dose 100 MG; Start 12/03/18 at 09:00 Gabapentin (Neurontin) 100 mg TID PO Last administered on 12/07/18 08:57; Admin Dose 100 MG; Start 12/02/18 at 21:00 Magnesium Hydroxide (Milk Of Mag) 30 ml HS PRN PO .CONSTIPATION Last administered on 12/05/18 13:29; Admin Dose 30 ML; Start 12/02/18 at 13:30 Naloxone HCl (Narcan) 0.2 mg Q2M PRN IV .RESP RATE; Start 12/02/18 at 13:30 Aspirin (Halfprin) 81 mg BID PO Last administered on 12/07/18 08:57; Admin Dose 81 MG; Start 12/03/18 at 09:00 Docusate Sodium (Colace) 200 mg DAILY PRN PO CONSTIPATION Last administered on 12/06/18 09:17; Admin Dose 200 MG; Start 12/02/18 at 18:00 Duloxetine HCl (Cymbalta) 60 mg DAILY PO Last administered on 12/07/18 08:56; Admin Dose 60 MG; Start 12/03/18 at 09:00 Ferrous Sulfate (Ferrous Sulfate (Ec)) 325 mg DAILY PO Last administered on 12/07/18 08:56; Admin Dose 325 MG; Start 12/03/18 at 09:00 Metaxalone (Skelaxin) 800 mg QID PO Last administered on 12/07/18 08:56; Admin Dose 800 MG; Start 12/02/18 at 21:00 Nortriptyline HCl (Aventyl) 25 mg HS PO Last administered on 12/06/18 20:47; Admin Dose 25 MG; Start 12/02/18 at 21:00 Diphenhydramine HCl (Benadryl) 25 mg Q4H PRN IV PRURITIS Last administered on 12/03/18 02:32; Admin Dose 25 MG; Start 12/02/18 at 18:00 Pantoprazole (Protonix Tab) 40 mg DAILY@06 PO Last administered on 12/07/18 0 6:05; Admin Dose 40 MG; Start 12/03/18 at 06:00 Morphine Sulfate (morphine) 2 mg Q3H PRN IV breakthrough pain Last administered on 12/06/18 12:29; Admin Dose 2 MG; Start 12/02/18 at 20:30 Hydroxyzine HCl (Atarax) 25 mg Q6H PRN PO ITCHING Last administered on 12/03/18 04:12; Admin Dose 25 MG; Start 12/02/18 at 21:00 Trazodone HCl (Desyrel) 300 mg HS PO Last administered on 12/06/18 20:48; Adm in Dose 300 MG; Start 12/02/18 at 23:30 Triamterene/HCTZ (Maxzide-25) 1 tab DAILY PO ; Start 12/04/18 at 09:00 Oxycodone HCl (Roxicodone) 15 mg Q4H PRN PO .PAIN Last administered on 12/06/18 21:51; Admin Dose 15 MG; Start 12/03/18 at 15:00 Oxycodone HCl (Roxicodone) 10 mg Q4H PRN PO .PAIN Last administered on 12/06/18 01:41; Admin Dose 10 MG; Start 12/03/18 at 15:00 Oxycodone HCl (Roxicodone) 5 mg Q4H PRN PO .PAIN; Start 12/03/18 at 15:00 Acetaminophen (Tylenol Tab) 1,000 mg Q8 PO Last administered on 12/07/18 06:05; Admin Dose 1,000 MG; Start 12/03/18 at 22:00 IV Flush (NS 10 ml) 10 ml PRN PRN IV IV PROTOCOL; Start 12/03/18 at 21:00 Ceftriaxone Sodium 50 ml @ 100 mls/hr Q24H IVPB Last administered on 12/06/18 15:06; Admin Dose 100 MLS/HR; Start 12/04/18 at 14:00 Phenol (Cepastat Lozenge) 1 lozenge Q1H PRN MT SORE THROAT Last administered on 12/05/18 09:35; Admin Dose 1 LOZENGE; Start 12/05/18 at 08:30 Vancomycin HCl 1.5 gm/Sodium Chloride 250 ml @ 83.333 mls/ hr Q24H IVPB Last administered on 12/07/18at 10:28; Admin Dose 83.333 MLS/HR; Start 12/07/18 at 11:00 Alteplase, Recombinant (Cathflo (Activase)) 2 mg MAY REPEAT X1 PRN CATHETER IF CATHETER REMAINS OCCULUDED Last administered on 12/07/18at 03:41; Admin Dose 2 MG; Start 12/07/18 at 02:00 Nitroglycerin (Nitroglycerin (Sl Tab) 0.4 Mg) 1 tab Q5M PRN SL ANGINA Last administered on 12/07/18at 12:10; Admin Dose 1 TAB; Start 12/07/18 at 11:30 ANA LILIA WADSWORTH MD December 07, 2018 12:44
[2018-12-07] MEDS: CEFTRIAXONE 1 GM/50 ML (PMX) 50 ML IVPB SCH (13:47)
--- NOTE | 2018-12-07 15:29 | CONS ---
Assessment/Plan Assessment/Plan Hospital Course (Demo Recall) - recurrent bilateral prosthetic knee infection - s/p bilateral knee revision, stage I with removal of implants and placement of antibiotic spacer on 12/02/2018. the surgical site fluid grew pantoea spp - h/o bilateral prosthetic knee infection in 2013 - s/p bilateral knee I&D with retention of prosthetic in 2013, according to Pt, the intra-operative cultures at that time did not grow bacteria. Pt took 6 weeks of IV vancomycin and ceftriaxone followed by 3 months of PO dicloxacillin - h/o bilateral total knee replacement in 2008 - pain of LUE - obesity - Hx of htn - DOMO - h/o DJD - reported allergy to penicillin but Pt tolerates ceftriaxone recommendations - ordered venous TYRON of LUE to r/o thrombus/phlebitis - await the final culture results of intra-operative fluid specimens (kept in the incubator for approximately 7 days) - continue ceftriaxone and vancomycin. Increased the dose of ceftriaxone to 2 gram daily - the antibiotic regimen will be adjusted once the intra-operative fluid cultures become final. this should be done at her follow up appointment with Dr. Morales (ID) as outpatient management d/w Pt and her Consultation Date/Type/Reason Admit Date/Time December 02, 2018 at 06:44 Initial Consult Date 12/04/18 Type of Consult ID Requesting Provider: LEONOR ANDRE MD Date/Time of Note DATE: 12/07/18 TIME: 15:21 24 HR Interval Summary Constitutional: no complaints Detailed Summary Eyes: no complaints ENT: no complaints Respiratory: no complaints Cardiovascular: No chest pain Gastrointestinal: no complaints Genitourinary: no complaints Musculoskeletal: bone/joint pain (b/l knee, L>R), restricted range of motion, swelling (b/l knee) Skin: other (pain of RUE proximal to PICC) Neurologic: no complaints Exam/Review of Systems Exam Vitals Vital Signs Date Temp Pulse Resp B/P (MAP) Pulse Ox O2 O2 Flow FiO2 Time Delivery Rate 12/07/18 89 12:33 12/07/18 98.3 20 94/50 (65) 97 Room Air 11:32 Intake and Output 12/06/18 12/06/18 12/07/18 1515:00 23:00 07:00 IntakeIntake Total 980 ml 200 ml OutputOutput Total 2 ml BalanceBalance 980 ml 198 ml Psych: no complaints, nl mood/affect Head: normocephalic, atraumatic ENMT: nl external ears & nose, nl nasal mucosa & septum Neck: supple Respiratory: normal air movement Cardiovascular: No edema Gastrointestinal: soft, non-tender Musculoskeletal: joint tenderness (b/l knee), swelling (b/l knee) Extremities: tenderness (LUE) Neurological: PCT II-XII intact, nl mental status, nl speech Skin: No rash or lesions Results Result Diagram: 12/07/189 12/07/18 0459 Results 24hrs Laboratory Tests Test 12/07/18 00:40 12/07/18 04:59 Troponin I < 0.012 < 0.012 White Blood Count 5.7 Red Blood Count 2.58 L Hemoglobin 7.7 L Hematocrit 24.4 L Mean Corpuscular Volume 94.6 Mean Corpuscular Hemoglobin 29.8 Mean Corpuscular Hemoglobin Concent 31.6 L Red Cell Distribution Width 15.2 H Platelet Count 152 Mean Platelet Volume 10.1 Immature Granulocytes % 0.200 Neutrophils % 69.6 Lymphocytes % 16.4 Monocytes % 11.3 H Eosinophils % 2.3 Basophils % 0.2 Nucleated Red Blood Cells % 0.0 Immature Granulocytes # 0.010 Neutrophils # 4.0 Lymphocytes # 0.9 Monocytes # 0.6 Eosinophils # 0.1 Basophils # 0.0 Nucleated Red Blood Cells # 0.0 Sodium Level 136 Potassium Level 4.1 Chloride Level 104 Carbon Dioxide Level 31 Anion Gap 1 L Blood Urea Nitrogen 20 Creatinine 0.95 Est Glomerular Filtrat Rate mL/min 60 Glucose Level 87 Calcium Level 8.3 L Medications Medication Current Medications Miscellaneous Information (* Miscellaneous Pharmacy Order) DURAMORPH: 0.2 MG SPI... GIVEN NEURAXIAL XX ; Start 12/02/18 at 13:30 IV Flush (NS 3 ml) 3 ml PER PROTOCOL IV ; Start 12/02/18 at 13:30 Ketorolac Tromethamine (Toradol) 15 mg Q6H PRN IV .PAIN Last administered on 12/02/18at 19:22; Admin Dose 15 MG; Start 12/02/18 at 13:30 Ondansetron HCl (Zofran Inj) 4 mg Q4H PRN IV NAUSEA/VOMITING Last administered on 12/06/18at 19:24; Admin Dose 4 MG; Start 12/03/18 at 13:30 Celecoxib (Celebrex) 100 mg BID PO Last administered on 12/07/18 09:00; Admin Dose 100 MG; Start 12/03/18 at 09:00 Gabapentin (Neurontin) 100 mg TID PO Last administered on 12/07/18 12:55; Admin Dose 100 MG; Start 12/02/18 at 21:00 Magnesium Hydroxide (Milk Of Mag) 30 ml HS PRN PO .CONSTIPATION Last administered on 12/05/18 13:29; Admin Dose 30 ML; Start 12/02/18 at 13:30 Naloxone HCl (Narcan) 0.2 mg Q2M PRN IV .RESP RATE; Start 12/02/18 at 13:30 Aspirin (Halfprin) 81 mg BID PO Last administered on 12/07/18 08:57; Admin Dose 81 MG; Start 12/03/18 at 09:00 Docusate Sodium (Colace) 200 mg DAILY PRN PO CONSTIPATION Last administered on 12/06/18 09:17; Admin Dose 200 MG; Start 12/02/18 at 18:00 Duloxetine HCl (Cymbalta) 60 mg DAILY PO Last administered on 12/07/18 08:56; Admin Dose 60 MG; Start 12/03/18 at 09:00 Ferrous Sulfate (Ferrous Sulfate (Ec)) 325 mg DAILY PO Last administered on 12/07/18 08:56; Admin Dose 325 MG; Start 12/03/18 at 09:00 Metaxalone (Skelaxin) 800 mg QID PO Last administered on 12/07/18 12:55; Admin Dose 800 MG; Start 12/02/18 at 21:00 Nortriptyline HCl (Aventyl) 25 mg HS PO Last administered on 12/06/18 20:47; Admin Dose 25 MG; Start 12/02/18 at 21:00 Diphenhydramine HCl (Benadryl) 25 mg Q4H PRN IV PRURITIS Last administered on 12/03/18 02:32; Admin Dose 25 MG; Start 12/02/18 at 18:00 Pantoprazole (Protonix Tab) 40 mg DAILY@06 PO Last administered on 12/07/18 06:05; Admin Dose 40 MG; Start 12/03/18 at 06:00 Morphine Sulfate (morphine) 2 mg Q3H PRN IV breakthrough pain Last administered on 12/06/18 12:29; Admin Dose 2 MG; Start 12/02/18 at 20:30 Hydroxyzine HCl (Atarax) 25 mg Q6H PRN PO ITCHING Last administered on 12/03/18 04:12; Admin Dose 25 MG; Start 12/02/18 at 21:00 Trazodone HCl (Desyrel) 300 mg HS PO Last administered on 12/06/18 20:48; Admin Dose 300 MG; Start 12/02/18 at 23:30 Triamterene/HCTZ (Maxzide-25) 1 tab DAILY PO ; Start 12/04/18 at 09:00 Oxycodone HCl (Roxicodone) 15 mg Q4H PRN PO .PAIN Last administered on 12/06/18 21:51; Admin Dose 15 MG; Start 12/03/18 at 15:00 Oxycodone HCl (Roxicodone) 10 mg Q4H PRN PO .PAIN Last administered on 12/06/18 01:41; Admin Dose 10 MG; Start 12/03/18 at 15:00 Oxycodone HCl (Roxicodone) 5 mg Q4H PRN PO .PAIN; Start 12/03/18 at 15:00 Acetaminophen (Tylenol Tab) 1,000 mg Q8 PO Last administered on 12/07/18 13:47; Admin Dose 1,000 MG; Start 12/03/18 at 22:00 IV Flush (NS 10 ml) 10 ml PRN PRN IV IV PROTOCOL; Start 12/03/18 at 21:00 Ceftriaxone Sodium 50 ml @ 100 mls/hr Q24H IVPB Last administered on 12/07/18 13:47; Admin Dose 100 MLS/HR; Start 12/04/18 at 14:00 Phenol (Cepastat Lozenge) 1 lozenge Q1H PRN MT SORE THROAT Last administered on 12/05/18 09:35; Admin Dose 1 LOZENGE; Start 12/05/18 at 08:30 Vancomycin HCl 1.5 gm/Sodium Chloride 250 ml @ 83.333 mls/ hr Q24H IVPB Last administered on 12/07/18 10:28; Admin Dose 83.333 MLS/HR; Start 12/07/18 at 11:00 Alteplase, Recombinant (Cathflo (Activase)) 2 mg MAY REPEAT X1 PRN CATHETER IF CATHETER REMAINS OCCULUDED Last administered on 12/07/18at 03:41; Admin Dose 2 MG; Start 12/07/18 at 02:00 Nitroglycerin (Nitroglycerin (Sl Tab) 0.4 Mg) 1 tab Q5M PRN SL ANGINA Last administered on 12/07/18at 12:10; Admin Dose 1 TAB; Start 12/07/18 at 11:30 SENG DOVE M.D. December 07, 2018 15:29
[2018-12-07] MEDS ORDERED: CEFTRIAXONE 1 GM/50 ML (PMX) 50 ML IVPB SCH (15:30)
[2018-12-07] MEDS ORDERED: LIDOCAINE 1% (MPF) 5 ML VIAL SC ONE (18:00)
--- NOTE | 2018-12-07 18:42 | PN ---
Date/Time of Note Date/Time of Note DATE: 12/07/18 TIME: 18:39 Assessment/Plan VTE Prophylaxis Risk score (from Nsg)>0 risk: 5 SCD applied (from Nsg): Yes Pharmacological prophylaxis: LMWH Lines/Catheters IV Catheter Type (from Nrsg): PICC Line Central line still needed: Yes Urinary Cath still in place: No Assessment/Plan Hospital Course Patient developed chest pain last night was transferred on telemetry floor. Dr. Titus is asked to see patient in cardiology consultation in the morning. Plan for stress test tomorrow. Left upper extremity ultrasound came back positive for DVT of the left axillary vein and left proximal brachial vein. DC PICC line after placement of PICC line in right upper extremity. We will start Lovenox. Assessment/Plan -DVT of the left axillary vein and left proximal brachial vein. -Bilateral knee infection. S/p Bilateral knee revision, stage I with removal of implants and placement of antibiotic spacer. Continue IV antibiotics per ID. Dr Cox is following in infection disease consultation. Continue [place] and morphine as needed for pain and Zofran as needed for nausea. -Hypertension, continue Maxzide -Chronic kidney disease stage III continue to monitor BUN and creatinine. -GERD, continue Protonix -Depression, continue home anti-depressants. Further recommendations based on clinical course. Plan of care discussed with Dr. Huggins. Result Diagram: 12/07/18 0459 12/07/18 0459 Results 24hrs Laboratory Tests Test 12/07/18 00:40 12/07/18 04:59 Troponin I < 0.012 < 0.012 White Blood Count 5.7 Red Blood Count 2.58 L Hemoglobin 7.7 L Hematocrit 24.4 L Mean Corpuscular Volume 94.6 Mean Corpuscular Hemoglobin 29.8 Mean Corpuscular Hemoglobin Concent 31.6 L Red Cell Distribution Width 15.2 H Platelet Count 152 Mean Platelet Volume 10.1 Immature Granulocytes % 0.200 Neutrophils % 69.6 Lymphocytes % 16.4 Monocytes % 11.3 H Eosinophils % 2.3 Basophils % 0.2 Nucleated Red Blood Cells % 0.0 Immature Granulocytes # 0.010 Neutrophils # 4.0 Lymphocytes # 0.9 Monocytes # 0.6 Eosinophils # 0.1 Basophils # 0.0 Nucleated Red Blood Cells # 0.0 Sodium Level 136 Potassium Level 4.1 Chloride Level 104 Carbon Dioxide Level 31 Anion Gap 1 L Blood Urea Nitrogen 20 Creatinine 0.95 Est Glomerular Filtrat Rate mL/min 60 Glucose Level 87 Calcium Level 8.3 L Exam/Review of Systems Exam Vitals Vital Signs Date Temp Pulse Resp B/P (MAP) Pulse Ox O2 O2 Flow FiO2 Time Delivery Rate 12/07/18 86 17:06 12/07/18 98.9 20 106/57 95 Room Air 15:52 (73) Intake and Output 12/06/18 12/06/18 12/07/18 1515:00 23:00 07:00 IntakeIntake Total 980 ml 200 ml OutputOutput Total 2 ml BalanceBalance 980 ml 198 ml Exam Constitutional: alert, oriented Respiratory: clear to auscultation Cardiovascular: nl pulse Gastrointestinal: soft, non-tender Musculoskeletal: other (Status post bilateral knee surgery) Extremities: normal pulses Neurological: nl mental status Results Results 24hrs Laboratory Tests Test 12/07/18 00:40 12/07/18 04:59 Troponin I < 0.012 < 0.012 White Blood Count 5.7 Red Blood Count 2.58 L Hemoglobin 7.7 L Hematocrit 24.4 L Mean Corpuscular Volume 94.6 Mean Corpuscular Hemoglobin 29.8 Mean Corpuscular Hemoglobin Concent 31.6 L Red Cell Distribution Width 15.2 H Platelet Count 152 Mean Platelet Volume 10.1 Immature Granulocytes % 0.200 Neutrophils % 69.6 Lymphocytes % 16.4 Monocytes % 11.3 H Eosinophils % 2.3 Basophils % 0.2 Nucleated Red Blood Cells % 0.0 Immature Granulocytes # 0.010 Neutrophils # 4.0 Lymphocytes # 0.9 Monocytes # 0.6 Eosinophils # 0.1 Basophils # 0.0 Nucleated Red Blood Cells # 0.0 Sodium Level 136 Potassium Level 4.1 Chloride Level 104 Carbon Dioxide Level 31 Anion Gap 1 L Blood Urea Nitrogen 20 Creatinine 0.95 Est Glomerular Filtrat Rate mL/min 60 Glucose Level 87 Calcium Level 8.3 L Medications Medication Current Medications Miscellaneous Information (* Miscellaneous Pharmacy Order) DURAMORPH: 0.2 MG SPI... GIVEN NEURAXIAL XX ; Start 12/02/18 at 13:30 IV Flush (NS 3 ml) 3 ml PER PROTOCOL IV ; Start 12/02/18 at 13:30 Ketorolac Tromethamine (Toradol) 15 mg Q6H PRN IV .PAIN Last administered on 12/02/18 19:22; Admin Dose 15 MG; Start 12/02/18 at 13:30 Ondansetron HCl (Zofran Inj) 4 mg Q4H PRN IV NAUSEA/VOMITING Last administered on 12/06/18 19:24; Admin Dose 4 MG; Start 12/03/18 at 13:30 Celecoxib (Celebrex) 100 mg BID PO Last administered on 12/07/18 09:00; Admin Dose 100 MG; Start 12/03/18 at 09:00 Gabapentin (Neurontin) 100 mg TID PO Last administered on 12/07/18 12:55; Admin Dose 100 MG; Start 12/02/18 at 21:00 Magnesium Hydroxide (Milk Of Mag) 30 ml HS PRN PO .CONSTIPATION Last administered on 12/05/18 13:29; Admin Dose 30 ML; Start 12/02/18 at 13:30 Naloxone HCl (Narcan) 0.2 mg Q2M PRN IV .RESP RATE; Start 12/02/18 at 13:30 Aspirin (Halfprin) 81 mg BID PO Last administered on 12/07/18 08:57; Admin Dose 81 MG; Start 12/03/18 at 09:00 Docusate Sodium (Colace) 200 mg DAILY PRN PO CONSTIPATION Last administered on 12/06/18 09:17; Admin Dose 200 MG; Start 12/02/18 at 18:00 Duloxetine HCl (Cymbalta) 60 mg DAILY PO Last administered on 12/07/18 08:56; Admin Dose 60 MG; Start 12/03/18 at 09:00 Ferrous Sulfate (Ferrous Sulfate (Ec)) 325 mg DAILY PO Last administered on 12/07/18 08:56; Admin Dose 325 MG; Start 12/03/18 at 09:00 Metaxalone (Skelaxin) 800 mg QID PO Last administered on 12/07/18 17:26; Admin Dose 800 MG; Start 12/02/18 at 21:00 Nortriptyline HCl (Aventyl) 25 mg HS PO Last administered on 12/06/18 20:47; Admin Dose 25 MG; Start 12/02/18 at 21:00 Diphenhydramine HCl (Benadryl) 25 mg Q4H PRN IV PRURITIS Last administered on 12/03/18 02:32; Admin Dose 25 MG; Start 12/02/18 at 18:00 Pantoprazole (Protonix Tab) 40 mg DAILY@06 PO Last administered on 12/07/18 06:05; Admin Dose 40 MG; Start 12/03/18 at 06:00 Morphine Sulfate (morphine) 2 mg Q3H PRN IV breakthrough pain Last administered on 12/06/18 12:29; Admin Dose 2 MG; Start 12/02/18 at 20:30 Hydroxyzine HCl (Atarax) 25 mg Q6H PRN PO ITCHING Last administered on 12/03/18 04:12; Admin Dose 25 MG; Start 12/02/18 at 21:00 Trazodone HCl (Desyrel) 300 mg HS PO Last administered on 12/06/18 20:48; Admin Dose 300 MG; Start 12/02/18 at 23:30 Triamterene/HCTZ (Maxzide-25) 1 tab DAILY PO ; Start 12/04/18 at 09:00 Oxycodone HCl (Roxicodone) 15 mg Q4H PRN PO .PAIN Last administered on 12/06/18 21:51; Admin Dose 15 MG; Start 12/03/18 at 15:00 Oxycodone HCl (Roxicodone) 10 mg Q4H PRN PO .PAIN Last administered on 12/06/18 01:41; Admin Dose 10 MG; Start 12/03/18 at 15:00 Oxycodone HCl (Roxicodone) 5 mg Q4H PRN PO .PAIN; Start 12/03/18 at 15:00 Acetaminophen (Tylenol Tab) 1,000 mg Q8 PO Last administered on 12/07/18 13:47; Admin Dose 1,000 MG; Start 12/03/18 at 22:00 IV Flush (NS 10 ml) 10 ml PRN PRN IV IV PROTOCOL; Start 12/03/18 at 21:00 Phenol (Cepastat Lozenge) 1 lozenge Q1H PRN MT SORE THROAT Last administered on 12/05/18 09:35; Admin Dose 1 LOZENGE; Start 12/05/18 at 08:30 Vancomycin HCl 1.5 gm/Sodium Chloride 250 ml @ 83.333 mls/ hr Q24H IVPB Last administered on 12/07/18at 10:28; Admin Dose 83.333 MLS/HR; Start 12/07/18 at 11: 00 Alteplase, Recombinant (Cathflo (Activase)) 2 mg MAY REPEAT X1 PRN CATHETER IF CATHETER REMAINS OCCULUDED Last administered on 12/07/18at 03:41; Admin Dose 2 MG; Start 12/07/18 at 02:00 Nitroglycerin (Nitroglycerin (Sl Tab) 0.4 Mg) 1 tab Q5M PRN SL ANGINA Last administered on 12/07/18at 12:10; Admin Dose 1 TAB; Start 12/07/18 at 11:30 Ceftriaxone Sodium 50 ml @ 100 mls/hr Q24H IVPB ; Start 12/08/18 at 15:30 LONA HEAD December 07, 2018 18:42
[2018-12-07] MEDS: NORTRIPTYLINE 25 MG CAP PO SCH (20:46)
[2018-12-07] MEDS: traZODone 100 MG TAB PO SCH (20:47)
[2018-12-07] MEDS: ENOXAPARIN 100 MG/ML SYG SC SCH (20:50)
[2018-12-08] VITALS (12 sets, daily range): BP systolic 80–143; BP diastolic 44–63; PULSE 68–109; RESP 18–20
[2018-12-08] MEDS ORDERED: SOD CHLORIDE 0.9% 500 ML IV ONE (03:30)
[2018-12-08] MEDS: PANTOPRAZOLE (EC) 40 MG TAB PO SCH (06:40)
--- NOTE | 2018-12-08 07:20 | CONS ---
DATE OF ADMISSION: 12/02/2018 DATE OF CONSULTATION: 12/07/2018 TYPE OF CONSULTATION: Cardiology. REFERRING PHYSICIAN: Beth Mcintyre MD REASON FOR EVALUATION: Precordial chest pain. HISTORY OF PRESENT ILLNESS: Ms. Means is a 62-year-old woman with history of hypertension, dyslipidem ia, history of obesity, history of chronic pain syndrome, who comes to the hospital now for removal o f infected hardware in her knees. The patient tolerated the procedure well, but after the procedure, she had 2 episodes of precordial chest pain. It is midsternal, localized, relieved with nitroglycer in. This is not classic for acute ischemia. She is already ruled out for acute myocardial infarctio n, but patient does not appear to have any evidence of ischemic classification. She is also somewhat anemic, which could be ischemia provoked. I think it would be reasonable at this point for the jemma ent to have a stress test in order to rule out reversible coronary artery disease, although she might not be a candidate for immediate intervention. Other than that, conservative therapy is expected. Patient is being followed by Dr. Cox from an infectious disease standpoint, will review 2D echo to make sure there is no evidence of vegetation now. PAST MEDICAL HISTORY: 1. Hypertension. 2. Dyslipidemia. 3. History of obesity. 4. History of chronic pain syndrome. 5. History of depression. ALLERGIES: THE PATIENT IS ALLERGIC TO CONTRAST, PENICILLIN, HYDROMORPHONE, ACETAMINOPHEN. REVIEW OF SYSTEMS: CONSTITUTIONAL: Fever, chills, recent knee infection status post surgery. HEENT: No changes in vision or hearing. CARDIAC: Chest pain is reported. RESPIRATORY: Shortness of breath. GASTROINTESTINAL: No nausea, vomiting, diarrhea, constipation. GENITOURINARY: No dysuria or hematuria. NEUROLOGIC: No focal deficits. HEMATOLOGIC: History of anemia. PSYCHIATRIC: History of depression. PHYSICAL EXAMINATION: VITAL SIGNS: Temperature 98.3, heart rate 90, blood pressure 94/50. GENERAL: She is an obese woman in no acute distress, alert and oriented x3, aware of her condition. HEAD: Normocephalic, atraumatic. NECK: Supple. JVD is ____ cm. There is no lymphadenopathy or thyromegaly. HEART: Regular, soft holosystolic murmur. PMI is minimally displaced. There is no S3. LUNGS: Coarse to base. ABDOMEN: Distended, bowel sounds are present. There is no hepatosplenomegaly. GENITOURINARY: Grossly intact. EXTREMITIES: Show no clubbing, cyanosis. Trace edema. She is status post removal of knee hardware. LABORATORY DATA: Sodium 136, potassium 4.1. Troponin is negative at 0.012. White blood cell 5.7, h emoglobin is 7.7, platelets 152. ASSESSMENT AND PLAN: 1. ____ chest pain. She has history of coronary artery disease ____ artery disease on the mother's side. The patient has not had any recent risk stratification. I think it is reasonable for her to h ave a stress test, which we should try to facilitate shortly. 2. Hypertension. Blood pressure is on the low side now. Continue to monitor. 3. Anemia. Hemoglobin is low but stable at 7.7. Continue to monitor. If it continues to track reji n, might need a blood transfusion. 4. Infection. The patient has long-term antibiotics, status post hardware removal. Infectious dise ase team follows. Will review an echo to evaluate for possible vegetation. I would like to thank Dr. Mcintyre for referring this patient for my evaluation. Dictated By: ANA LILIA WADSWORTH MD ML/NTS Conf#: [id number] DID#: [id number] CC: BETH MCINTYRE MD;*EndCC*
[2018-12-08] MEDS: METAXALONE 800 MG TAB PO SCH ×4 (08:10→20:29)
[2018-12-08] MEDS: GABAPENTIN 100 MG CAP PO SCH ×3 (08:10→20:29)
[2018-12-08] MEDS: FERROUS SULFATE (EC) 325 MG TAB PO SCH ×2 (08:11→20:29)
[2018-12-08] MEDS: CELECOXIB 100 MG CAP PO SCH ×2 (08:11→20:29)
[2018-12-08] MEDS: ASPIRIN (EC) 81 MG TAB PO SCH (08:11)
[2018-12-08] MEDS: DULOXETINE 30 MG CAP DR PO SCH (08:11)
[2018-12-08] MEDS: ENOXAPARIN 100 MG/ML SYG SC SCH ×2 (08:21→20:35)
[2018-12-08] MEDS: TRIAMTERENE/HCTZ (37.5/25) TAB PO SCH (09:00)
--- NOTE | 2018-12-08 09:03 | RADRPT ---
Vent Rate: 97 bpm RR Interval: 615 msec GA Interval: 155 msec QRS Duration: 87 msec QT Interval: 378 msec QTC Interval: 482 msec P-R-T [place]: 14 - 5 - 6 degrees Sinus rhythm..l low voltage Electronically Signed By: Gonzales Guillen
[2018-12-08] MEDS ORDERED: REGADENOSON 0.4 MG/5 ML SYG ONE (11:47)
--- NOTE | 2018-12-08 13:34 | CONS ---
Assessment/Plan Assessment/Plan Hospital Course (Demo Recall) IMp: 1.Chest lows-whdp-em-neg trop x 3/NL EF by echo 2.Post-op s/p kneww revision for infected hardware 3.HTN-borderline hotn 4.anemia Recc: -Tele -serial ecg's -lexiscan stress test today -Hold maxide -continue abx's and f/u cx data -pain control Consultation Date/Type/Reason Admit Date/Time December 02, 2018 at 06:44 Initial Consult Date 12/04/18 Type of Consult Cardiology Reason for Consultation Chest pain Requesting Provider: LEONOR ANDRE MD Date/Time of Note DATE: 12/08/18 TIME: 13:29 Exam/Review of Systems Vital Signs Vitals Vital Signs Date Temp Pulse Resp B/P (MAP) Pulse Ox O2 O2 Flow FiO2 Time Delivery Rate 12/08/18 87 12:12 12/08/18 98.4 20 95/50 (65) 92 Room Air 07:30 Intake and Output 12/07/18 12/07/18 12/08/18 1515:00 23:00 07:00 IntakeIntake Total 1350 ml 700 ml BalanceBalance 1350 ml 700 ml Exam Exam Review of Systems: CONSTITUTIONAL: No fevers, chills. PULMONARY: No sob CARDIOVASCULAR: intermittent chest pain GASTROINTESTINAL: No nausea/vomiting. GENITOURINARY: No hematuria/dysuria. MUSCULOSKELETAL: No myagias/arthalgias. PSYCHIATRIC: The patient denies depression. NEUROLOGIC: No weakness Constitutional: alert Psych: no complaints Head: normocephalic ENMT: mucosa pink and moist Neck: supple, jvd (9 cm water) Respiratory: diminished breath sounds Cardiovascular: regular rate and rhythm Gastrointestinal: soft, non-tender Musculoskeletal: muscle tone (normal) Extremities: edema (none) Neurological: other (No focal; deficits) Labs Result Diagram: 12/08/1817 12/08/18 0517 Results 24hrs Laboratory Tests Test 12/08/18 05:17 White Blood Count 3.8 #L Red Blood Count 2.32 L Hemoglobin 6.7 *L Hematocrit 22.2 L Mean Corpuscular Volume 95.7 Mean Corpuscular Hemoglobin 28.9 L Mean Corpuscular Hemoglobin Concent 30.2 L Red Cell Distribution Width 15.1 H Platelet Count 145 Mean Platelet Volume 10.0 Immature Granulocytes % 0.500 H Neutrophils % 60.4 Lymphocytes % 24.9 Monocytes % 11.0 Eosinophils % 2.9 Basophils % 0.3 Nucleated Red Blood Cells % 0.0 Immature Granulocytes # 0.020 Neutrophils # 2.3 Lymphocytes # 1.0 Monocytes # 0.4 Eosinophils # 0.1 Basophils # 0.0 Nucleated Red Blood Cells # 0.0 Pathologist Review (Hematology) YES Sodium Level 140 Potassium Level 4.2 Chloride Level 107 Carbon Dioxide Level 32 H Anion Gap 1 L Blood Urea Nitrogen 16 Creatinine 0.83 Est Glomerular Filtrat Rate mL/min > 60 Glucose Level 78 Calcium Level 7.6 L Troponin I < 0.012 Medications Medications Current Medications Miscellaneous Information (* Miscellaneous Pharmacy Order) DURAMORPH: 0.2 MG SPI... GIVEN NEURAXIAL XX ; Start 12/02/18 at 13:30 IV Flush (NS 3 ml) 3 ml PER PROTOCOL IV ; Start 12/02/18 at 13:30 Ketorolac Tromethamine (Toradol) 15 mg Q6H PRN IV .PAIN Last administered on 12/02/18 19:22; Admin Dose 15 MG; Start 12/02/18 at 13:30 Ondansetron HCl (Zofran Inj) 4 mg Q4H PRN IV NAUSEA/VOMITING Last administered on 12/06/18 19:24; Admin Dose 4 MG; Start 12/03/18 at 13:30 Celecoxib (Celebrex) 100 mg BID PO Last administered on 12/08/18 08:11; Admin Dose 100 MG; Start 12/03/18 at 09:00 Gabapentin (Neurontin) 100 mg TID PO Last administered on 12/08/18 08:10; Admin Dose 100 MG; Start 12/02/18 at 21:00 Magnesium Hydroxide (Milk Of Mag) 30 ml HS PRN PO .CONSTIPATION Last administered on 12/05/18 13:29; Admin Dose 30 ML; Start 12/02/18 at 13:30 Naloxone HCl (Narcan) 0.2 mg Q2M PRN IV .RESP RATE; Start 12/02/18 at 13:30 Aspirin (Halfprin) 81 mg BID PO Last administered on 12/08/18 08:11; Admin Dose 81 MG; Start 12/03/18 at 09:00 Docusate Sodium (Colace) 200 mg DAILY PRN PO CONSTIPATION Last administered on 12/06/18 09:17; Admin Dose 200 MG; Start 12/02/18 at 18:00 Duloxetine HCl (Cymbalta) 60 mg DAILY PO Last administered on 12/08/18 08:11; Admin Dose 60 MG; Start 12/03/18 at 09:00 Ferrous Sulfate (Ferrous Sulfate (Ec)) 325 mg DAILY PO Last administered on 12/08/18 08:11; Admin Dose 325 MG; Start 12/03/18 at 09:00 Metaxalone (Skelaxin) 800 mg QID PO Last administered on 12/08/18 08:10; Admin Dose 800 MG; Start 12/02/18 at 21:00 Nortriptyline HCl (Aventyl) 25 mg HS PO Last administered on 12/07/18 20:46; Admin Dose 25 MG; Start 12/02/18 at 21:00 Diphenhydramine HCl (Benadryl) 25 mg Q4H PRN IV PRURITIS Last administered on 12/03/18 02:32; Admin Dose 25 MG; Start 12/02/18 at 18:00 Pantoprazole (Protonix Tab) 40 mg DAILY@06 PO Last administered on 12/08/18 06:40; Admin Dose 40 MG; Start 12/03/18 at 06:00 Morphine Sulfate (morphine) 2 mg Q3H PRN IV breakthrough pain Last administered on 12/06/18 12:29; Admin Dose 2 MG; Start 12/02/18 at 20:30 Hydroxyzine HCl (Atarax) 25 mg Q6H PRN PO ITCHING Last administered on 12/03/18 04:12; Admin Dose 25 MG; Start 12/02/18 at 21:00 Trazodone HCl (Desyrel) 300 mg HS PO Last administered on 12/07/18 20:47; Admin Dose 300 MG; Start 12/02/18 at 23:30 Triamterene/HCTZ (Maxzide-25) 1 tab DAILY PO ; Start 12/04/18 at 09:00 Oxycodone HCl (Roxicodone) 15 mg Q4H PRN PO .PAIN Last administered on 12/06/18 21:51; Admin Dose 15 MG; Start 12/03/18 at 15:00 Oxycodone HCl (Roxicodone) 10 mg Q4H PRN PO .PAIN Last administered on 12/06/18 01:41; Admin Dose 10 MG; Start 12/03/18 at 15:00 Oxycodone HCl (Roxicodone) 5 mg Q4H PRN PO .PAIN; Start 12/03/18 at 15:00 Acetaminophen (Tylenol Tab) 1,000 mg Q8 PO Last administered on 12/07/18 22:13; Admin Dose 1,000 MG; Start 12/03/18 at 22:00 IV Flush (NS 10 ml) 10 ml PRN PRN IV IV PROTOCOL; Start 12/03/18 at 21:00 Phenol (Cepastat Lozenge) 1 lozenge Q1H PRN MT SORE THROAT Last administered on 12/05/18 09:35; Admin Dose 1 LOZENGE; Start 12/05/18 at 08:30 Vancomycin HCl 1.5 gm/Sodium Chloride 250 ml @ 83.333 mls/ hr Q24H IVPB Last administered on 12/07/18 10:28; Admin Dose 83.333 MLS/HR; Start 12/07/18 at 11:00 Alteplase, Recombinant (Cathflo (Activase)) 2 mg MAY REPEAT X1 PRN CATHETER IF CATHETER REMAINS OCCULUDED Last administered on 12/07/18 03:41; Admin Dose 2 MG; Start 12/07/18 at 02:00 Nitroglycerin (Nitroglycerin (Sl Tab) 0.4 Mg) 1 tab Q5M PRN SL ANGINA Last administered on 12/07/18at 12:10; Admin Dose 1 TAB; Start 12/07/18 at 11:30 Ceftriaxone Sodium 50 ml @ 100 mls/hr Q24H IVPB ; Start 12/08/18 at 15:30 Enoxaparin Sodium (Lovenox) 85 mg Q12 SC Last administered on 12/08/18 08:21; Admin Dose 85 MG; Start 12/07/18 at 21:00 CAR KATZ December 08, 2018 13:34
[2018-12-08] MEDS: morphine 2 MG INJ IV PRN (13:37)
[2018-12-08] MEDS: ACETAMINOPHEN 500 MG TAB PO SCH ×2 (14:41→22:40)
[2018-12-08] MEDS: VANCOMYCIN HCL 1.5 GM in SOD CHLORIDE 0.9% 250 ML IVPB SCH (14:46)
--- NOTE | 2018-12-08 15:23 | PN ---
Date/Time of Note Date/Time of Note DATE: 12/08/18 TIME: 15:15 Assessment/Plan VTE Prophylaxis Risk score (from Nsg)>0 risk: 6 SCD applied (from Nsg): Yes Pharmacological prophylaxis: LMWH Lines/Catheters IV Catheter Type (from Nrsg): PICC Line Central line still needed: Yes Urinary Cath still in place: No Assessment/Plan Hospital Course Patient is just came back from stress test, complains of chest pain, however, stated that it decreased in intensity to compare to yesterday. Continue telemetry monitoring. Assessment/Plan -Chest pain, rule out acute coronary syndrome follow-up on stress test results, continue telemetry monitoring. Dr. Titus is following in cardiology consultation. -DVT of the left axillary vein and left proximal brachial vein. Continue Lovenox. DC PICC line. -Bilateral knee infection. S/p Bilateral knee revision, stage I with removal of implants and placement of antibiotic spacer. Continue IV antibiotics per ID. Dr Cox is following in infection disease consultation. Continue Emery and morphine as needed for pain and Zofran as needed for nausea. -Hypertension, continue Maxzide -Chronic kidney disease stage III continue to monitor BUN and creatinine. -GERD, continue Protonix -Depression, continue home anti-depressants. Further recommendations based on clinical course. Plan of care discussed with Dr. Huggins. Result Diagram: 12/08/18 0517 12/08/18 0517 Results 24hrs Laboratory Tests Test 12/08/18 05:17 White Blood Count 3.8 #L Red Blood Count 2.32 L Hemoglobin 6.7 *L Hematocrit 22.2 L Mean Corpuscular Volume 95.7 Mean Corpuscular Hemoglobin 28.9 L Mean Corpuscular Hemoglobin Concent 30.2 L Red Cell Distribution Width 15.1 H Platelet Count 145 Mean Platelet Volume 10.0 Immature Granulocytes % 0.500 H Neutrophils % 60.4 Lymphocytes % 24.9 Monocytes % 11.0 Eosinophils % 2.9 Basophils % 0.3 Nucleated Red Blood Cells % 0.0 Immature Granulocytes # 0.020 Neutrophils # 2.3 Lymphocytes # 1.0 Monocytes # 0.4 Eosinophils # 0.1 Basophils # 0.0 Nucleated Red Blood Cells # 0.0 Pathologist Review (Hematology) YES Sodium Level 140 Potassium Level 4.2 Chloride Level 107 Carbon Dioxide Level 32 H Anion Gap 1 L Blood Urea Nitrogen 16 Creatinine 0.83 Est Glomerular Filtrat Rate mL/min > 60 Glucose Level 78 Calcium Level 7.6 L Troponin I < 0.012 Exam/Review of Systems Exam Vitals Vital Signs Date Temp Pulse Resp B/P (MAP) Pulse Ox O2 O2 Flow FiO2 Time Delivery Rate 12/08/18 87 12:12 12/08/18 98.4 20 95/50 (65) 92 Room Air 07:30 Intake and Output 12/07/18 12/07/18 12/08/18 1515:00 23:00 07:00 IntakeIntake Total 1350 ml 700 ml BalanceBalance 1350 ml 700 ml Exam Constitutional: alert, oriented Respiratory: clear to auscultation Cardiovascular: nl pulse Gastrointestinal: soft, non-tender Musculoskeletal: other (Status post bilateral knee surgery) Extremities: normal pulses Neurological: nl mental status Results Results 24hrs Laboratory Tests Test 12/08/18 05:17 White Blood Count 3.8 #L Red Blood Count 2.32 L Hemoglobin 6.7 *L Hematocrit 22.2 L Mean Corpuscular Volume 95.7 Mean Corpuscular Hemoglobin 28.9 L Mean Corpuscular Hemoglobin Concent 30.2 L Red Cell Distribution Width 15.1 H Platelet Count 145 Mean Platelet Volume 10.0 Immature Granulocytes % 0.500 H Neutrophils % 60.4 Lymphocytes % 24.9 Monocytes % 11.0 Eosinophils % 2.9 Basophils % 0.3 Nucleated Red Blood Cells % 0.0 Immature Granulocytes # 0.020 Neutrophils # 2.3 Lymphocytes # 1.0 Monocytes # 0.4 Eosinophils # 0.1 Basophils # 0.0 Nucleated Red Blood Cells # 0.0 Pathologist Review (Hematology) YES Sodium Level 140 Potassium Level 4.2 Chloride Level 107 Carbon Dioxide Level 32 H Anion Gap 1 L Blood Urea Nitrogen 16 Creatinine 0.83 Est Glomerular Filtrat Rate mL/min > 60 Glucose Level 78 Calcium Level 7.6 L Troponin I < 0.012 Medications Medication Current Medications Miscellaneous Information (* Miscellaneous Pharmacy Order) DURAMORPH: 0.2 MG SPI... GIVEN NEURAXIAL XX ; Start 12/02/18 at 13:30 IV Flush (NS 3 ml) 3 ml PER PROTOCOL IV ; Start 12/02/18 at 13:30 Ketorolac Tromethamine (Toradol) 15 mg Q6H PRN IV .PAIN Last administered on 12/02/18 19:22; Admin Dose 15 MG; Start 12/02/18 at 13:30 Ondansetron HCl (Zofran Inj) 4 mg Q4H PRN IV NAUSEA/VOMITING Last administered on 12/06/18 19:24; Admin Dose 4 MG; Start 12/03/18 at 13:30 Celecoxib (Celebrex) 100 mg BID PO Last administered on 12/08/18 08:11; Admin Dose 100 MG; Start 12/03/18 at 09:00 Gabapentin (Neurontin) 100 mg TID PO Last administered on 12/08/18 08:10; Admin Dose 100 MG; Start 12/02/18 at 21:00 Magnesium Hydroxide (Milk Of Mag) 30 ml HS PRN PO .CONSTIPATION Last administered on 12/05/18 13:29; Admin Dose 30 ML; Start 12/02/18 at 13:30 Naloxone HCl (Narcan) 0.2 mg Q2M PRN IV .RESP RATE; Start 12/02/18 at 13:30 Aspirin (Halfprin) 81 mg BID PO Last administered on 12/08/18 08:11; Admin Dose 81 MG; Start 12/03/18 at 09:00 Docusate Sodium (Colace) 200 mg DAILY PRN PO CONSTIPATION Last administered on 12/06/18 09:17; Admin Dose 200 MG; Start 12/02/18 at 18:00 Duloxetine HCl (Cymbalta) 60 mg DAILY PO Last administered on 12/08/18 08:11; Admin Dose 60 MG; Start 12/03/18 at 09:00 Ferrous Sulfate (Ferrous Sulfate (Ec)) 325 mg DAILY PO Last administered on 12/08/18 08:11; Admin Dose 325 MG; Start 12/03/18 at 09:00 Metaxalone (Skelaxin) 800 mg QID PO Last administered on 12/08/18 08:10; Admin Dose 800 MG; Start 12/02/18 at 21:00 Nortriptyline HCl (Aventyl) 25 mg HS PO Last administered on 12/07/18 20:46; Admin Dose 25 MG; Start 12/02/18 at 21:00 Diphenhydramine HCl (Benadryl) 25 mg Q4H PRN IV PRURITIS Last administered on 12/03/18 02:32; Admin Dose 25 MG; Start 12/02/18 at 18:00 Pantoprazole (Protonix Tab) 40 mg DAILY@06 PO Last administered on 12/08/18 06:40; Admin Dose 40 MG; Start 12/03/18 at 06:00 Morphine Sulfate (morphine) 2 mg Q3H PRN IV breakthrough pain Last administered on 12/08/18 13:37; Admin Dose 2 MG; Start 12/02/18 at 20:30 Hydroxyzine HCl (Atarax) 25 mg Q6H PRN PO ITCHING Last administered on 12/03/18 04:12; Admin Dose 25 MG; Start 12/02/18 at 21:00 Trazodone HCl (Desyrel) 300 mg HS PO Last administered on 12/07/18 20:47; Admin Dose 300 MG; Start 12/02/18 at 23:30 Triamterene/HCTZ (Maxzide-25) 1 tab DAILY PO ; Start 12/04/18 at 09:00 Oxycodone HCl (Roxicodone) 15 mg Q4H PRN PO .PAIN Last administered on 12/06/18 21:51; Admin Dose 15 MG; Start 12/03/18 at 15:00 Oxycodone HCl (Roxicodone) 10 mg Q4H PRN PO .PAIN Last administered on 12/06/18 01:41; Admin Dose 10 MG; Start 12/03/18 at 15:00 Oxycodone HCl (Roxicodone) 5 mg Q4H PRN PO .PAIN; Start 12/03/18 at 15:00 Acetaminophen (Tylenol Tab) 1,000 mg Q8 PO Last administered on 12/08/18 14:41; Admin Dose 1,000 MG; Start 12/03/18 at 22:00 IV Flush (NS 10 ml) 10 ml PRN PRN IV IV PROTOCOL; Start 12/03/18 at 21:00 Phenol (Cepastat Lozenge) 1 lozenge Q1H PRN MT SORE THROAT Last administered on 12/05/18 09:35; Admin Dose 1 LOZENGE; Start 12/05/18 at 08:30 Vancomycin HCl 1.5 gm/Sodium Chloride 250 ml @ 83.333 mls/ hr Q24H IVPB Last administered on 12/08/18at 14:46; Admin Dose 83.333 MLS/HR; Start 12/07/18 at 11:00 Alteplase, Recombinant (Cathflo (Activase)) 2 mg MAY REPEAT X1 PRN CATHETER IF CATHETER REMAINS OCCULUDED Last administered on 12/07/18at 03:41; Admin Dose 2 MG; Start 12/07/18 at 02:00 Nitroglycerin (Nitroglycerin (Sl Tab) 0.4 Mg) 1 tab Q5M PRN SL ANGINA Last administered on 12/07/18at 12:10; Admin Dose 1 TAB; Start 12/07/18 at 11:30 Ceftriaxone Sodium 50 ml @ 100 mls/hr Q24H IVPB ; Start 12/08/18 at 15:30 Enoxaparin Sodium (Lovenox) 85 mg Q12 SC Last administered on 12/08/18at 08:21; Admin Dose 85 MG; Start 12/07/18 at 21:00 LONA HEAD December 08, 2018 15:23
--- NOTE | 2018-12-08 18:03 | CARRPT ---
DATE OF PROCEDURE: 12/08/2018 DATE OF PROCEDURE: 12/08/2018. REASON FOR STRESS TESTING: Chest pain, assess for ischemia. BASELINE VITAL SIGNS AND ELECTROCARDIOGRAM: Pulse of 82, blood pressure 126/59. Electrocardiogram n ormal sinus rhythm at a rate of 82, normal axis and intervals, no significant T-wave abnormalities. PROCEDURE: The patient underwent standard Lexiscan infusion protocol over 10 seconds followed by rad iolabeled tracer. The patient's test was stopped due to completion of protocol. Maximal achieved bl ood pressure during the test 180/65. Maximum heart rate during the test 91. ELECTROCARDIOGRAM FINDINGS: The patient did not develop any new Lexiscan-induced ST or T-wave change s from baseline abnormalities. No documented PVCs. SYMPTOMS: The patient had no complaints of chest pain or shortness breath during stress testing. IMPRESSION: 1. No Lexiscan-induced ST or T-wave changes from baseline abnormalities that are diagnostic of ische donna. 2. No complaints of chest pain or shortness of breath during stress testing. 3. No documented premature ventricular contractions during testing. 4. Report of nuclear images to follow in separate dictation. Dictated By: CAR ALVAREZ/HAMLET Conf#: [id number] DID#: [id number] CC: BETH MCINTYRE MD;*End*
[2018-12-08] MEDS: NORTRIPTYLINE 25 MG CAP PO SCH (20:28)
[2018-12-08] MEDS: CEFTRIAXONE 2 GM/50 ML (PMX) 50 ML IVPB SCH (20:30)
[2018-12-08] MEDS: traZODone 100 MG TAB PO SCH (22:40)
[2018-12-08] MEDS: KETOROLAC 15 MG INJ IV PRN (22:41)
[2018-12-09 00:25] VITALS: BP 94/51; PULSE 78; RESP 18
[2018-12-09] MEDS: oxyCODONE 5 MG TAB PO PRN (01:40)
[2018-12-09 02:25] VITALS: BP 90/47; PULSE 80; RESP 18
[2018-12-09] MEDS: PANTOPRAZOLE (EC) 40 MG TAB PO SCH (06:02)
[2018-12-09] MEDS: ACETAMINOPHEN 500 MG TAB PO SCH ×3 (06:02→21:44)
[2018-12-09 08:26] VITALS: BP 109/56; PULSE 75; RESP 20
[2018-12-09] MEDS: METAXALONE 800 MG TAB PO SCH ×4 (09:00→21:00)
[2018-12-09] MEDS: FERROUS SULFATE (EC) 325 MG TAB PO SCH ×2 (10:14→21:44)
[2018-12-09] MEDS: GABAPENTIN 100 MG CAP PO SCH ×3 (10:15→21:43)
[2018-12-09] MEDS: ENOXAPARIN 100 MG/ML SYG SC SCH ×2 (10:16→21:47)
--- NOTE | 2018-12-09 11:41 | DS ---
Date/Time of Note Date/Time of Note DATE: 12/09/18 TIME: 11:40 Discharge Summary Admission/Discharge Info Admit Date/Time December 02, 2018 at 06:44 Discharge Date/Time Discharge Diagnosis 1. Recurrent bilateral prosthetic knee infection - s/p bilateral knee revision, stage I with removal of implants and placement of antibiotic spacer on 12/02/2018. the surgical site fluid grew pantoea spp - h/o bilateral prosthetic knee infection in 2013 - s/p bilateral knee I&D with retention of prosthetic in 2013, according to Pt, the intra-operative cultures at that time did not grow bacteria. Pt took 6 weeks of IV vancomycin and ceftriaxone followed by 3 months of PO dicloxacillin - h/o bilateral total knee replacement in 2008 2. Chest pain: -ACS has been ruled out, status post nuclear medicine stress test 12/08/18 without evidence of reversible damage, medical management, chest pain resolved 3. New DVT of left axillary, proximal brachial, and basilic vein associated with PICC line, newly started on anticoagulation 4. Obesity 5. Htn 6. DOMO 7. h/o DJD 8. Reported allergy to penicillin but Pt tolerates ceftriaxone 9. Chronic kidney disease stage III continue to monitor BUN and creatinine. 10. GERD 11. Depression . Patient Condition: Stable Consults 1. Orthopedic surgery: Bhavesh Bernardo MD 2. Cardiology: Torsten Titus MD 3. Infectious disease: Deep [place] . Hospital Course 62-year-old female who was originally admitted for elective bilateral knee revision with removal of implants and placement of antibiotic spacer. The patient had a history of bilateral knee replacement many years ago and developed infection of bilateral knee prosthesis. Infectious disease consultation was obtained and intraoperative cultures were also obtained. Intraoperative cultures grew Pantoea Agglomerans , and the plan was to discharge patient home with home health and IV antibiotics once final sensitivities were available. Patient's postoperative course was complicated however by DVT of left axillary and left proximal brachial vein as well as a cephalic vein thrombosis of the left basilic veins. Note that this was associated with a PICC line that was placed due to the need for home IV antibiotics. Based on this patient was started on blood thinner therapy and PICC line was removed and transferred to the alternate arm. Also patient developed chest pain postoperatively and required a full cardiac w ork-up. Patient underwent a nuclear medicine stress test that showed no evidence of stress-induced ischemia, preserved ejection fraction at stress of 68%. Patient also developed severe anemia and at this time hemoglobin is low at 7.1. Based on the fact the patient is going to be on blood thinner therapy, patient will benefit from transfusion to optimize her prior to discharge. Once this is done and patient home IV antibiotics has been set up, patient can be discharged in stable condition. . Home Meds Active Scripts Apixaban* (Eliquis*) 5 Mg Tablet, 5 MG PO BID for 30 Days, #60 TAB 3 Refills to be started 12/17/18 Prov:IRENEZEV. 12/09/18 Apixaban* (Eliquis*) 5 Mg Tablet, 10 MG PO BID, #12 TAB Prov:ZEV BONILLA. 12/09/18 Reported Medications Docusate Sodium* (Docusate Sodium*) 100 Mg Capsule, 200 MG PO DAILY PRN for CONSTIPATION, #30 CAP 12/02/18 Multivitamins* (Theragran*) 1 Tab Tab, 1 TAB PO DAILY, TAB 12/02/18 Ferrous Sulfate* (Ferrous Sulfate*) 325 Mg Tabec, 325 MG PO DAILY, TAB 12/02/18 Calcium Citrate* (Citracal*) 950 Mg Tab, 2000 MG PO DAILY, TAB 12/02/18 Gabapentin* (Gabapentin*) 100 Mg Capsule, 100 MG PO Q8H, #90 CAP 12/02/18 Nortriptyline Hcl* (Nortriptyline Hcl*) 25 Mg Capsule, 25 MG PO HS, CAP 12/02/18 Diclofenac Sodium* (Voltaren* Gel) 1% -100 Gm Gel, 2 GM TOP QID, #1 TUB 11/22/18 Butalb/Acetaminophen/Caffeine ([id number]-[id number] 50-300-40) 1 Each Capsule, 1 EACH PO PRN PRN for HEADACHE, CAP 11/22/18 Omeprazole* (Omeprazole*) 40 Mg Capsule.dr, 40 MG PO DAILY, #30 CAP 11/22/18 Ergocalciferol (Vitamin D2) (VITAMIN D2) 2,000 Unit Tablet, 2000 UNIT PO DAILY, TAB 11/22/18 Metaxalone* (Metaxalone*) 800 Mg Tablet, 800 MG PO QID, TAB 11/22/18 Trazodone Hcl* (Trazodone Hcl*) 300 Mg Tablet, 300 MG PO QHS, #30 TAB 11/22/18 Triamterene/Hctz* (Maxzide (37.5-25)*) 1 Each Tablet, 0.5 EACH PO AT 3PM, #30 TAB 11/22/18 Triamterene/Hctz* (Maxzide (37.5-25)*) 1 Each Tablet, 0.5 EACH PO BID, #30 TAB 11/22/18 Topiramate* (Topiramate*) 25 Mg Tablet, 3 TAB ORAL QAM PRN for HEADACHE, TAB 11/22/18 Duloxetine Hcl* (Duloxetine Hcl*) 60 Mg Capsule., 60 MG PO DAILY, #30 CAP 11/22/18 Follow-up Plan Patient will follow-up with orthopedic surgery as well as infectious disease as outpatient. Patient also has been set up with home health for IV antibiotics as well as physical therapy and will continue to be monitored by her assigned primary care doctor. . Primary Care Provider Not On Staff Doctor Time spent on discharge: > 30 minutes Pending Labs Laboratory Tests Test 12/08/18 17:53 12/09/18 04:56 Hemoglobin 7.2 g/dl (12.0-16.0) 7.1 g/dl (12.0-16.0) Hematocrit 23.0 % (37.0-47.0) 23.6 % (37.0-47.0) White Blood Count 4.4 10^3/ul (4.8-10.8) Red Blood Count 2.47 10^6/ul (4.20-5.40) Mean Corpuscular Volume 95.5 fl (82.0-101.0) Mean Corpuscular Hemoglobin 28.7 pg (29.0-33.0) Mean Corpuscular 30.1 g/dl (32.0-37.0) Hemoglobin Concent Red Cell Distribution Width 15.8 % (11.5-14.5) Platelet Count 174 10^3/UL (140-415) Mean Platelet Volume 10.1 fl (7.4-10.4) Immature Granulocytes % 0.500 % (0.001-0.429) Neutrophils % 61.2 % (39.0-77.0) Lymphocytes % 24.8 % (15.0-51.0) Monocytes % 10.4 % (0.0-11.0) Eosinophils % 2.9 % (0.0-7.0) Basophils % 0.2 % (0.0-2.0) Nucleated Red Blood Cells % 0.0 /100WBC (0.0-0.0) Immature Granulocytes # 0.020 10^3/ul (0.0-0.031) Neutrophils # 2.7 10^3/ul (1.6-7.5) Lymphocytes # 1.1 10^3/ul (0.8-2.9) Monocytes # 0.5 10^3/ul (0.3-0.9) Eosinophils # 0.1 10^3/ul (0.0-0.5) Basophils # 0.0 10^3/ul (0.0-0.1) Nucleated Red Blood Cells # 0.0 10^3/ul (0.0-0.0) Sodium Level 139 mmol/L (135-144) Potassium Level 3.9 mmol/L (3.5-5.1) Chloride Level 108 mmol/L (97-110) Carbon Dioxide Level 28 mmol/L (21-31) Anion Gap 3 (5-13) Blood Urea Nitrogen 14 mg/dl (7-20) Creatinine 0.83 mg/dl (0.44-1.00) Est Glomerular Filtrat > 60 mL/min (>60) Rate mL/min Glucose Level 75 mg/dl (70-220) Calcium Level 7.8 mg/dl (8.4-10.2) ZEV BONILLA December 09, 2018 11:41
--- NOTE | 2018-12-09 12:06 | CONS ---
Assessment/Plan Assessment/Plan Hospital Course (Demo Recall) IMp: 1.Chest [id number]-[id number] trop x 3/NL EF by echo. Lexiscan 12/08 with no ischemia/NL EF 2.Post-op s/p kneww revision for infected hardware 3.HTN-borderline hotn 4.anemia Recc: -on med-surg -ok for d/c from cardiac standpoint -serial ecg's -Holding maxide -continue abx's and f/u cx data -pain control Consultation Date/Type/Reason Admit Date/Time December 02, 2018 at 06:44 Initial Consult Date 12/04/18 Type of Consult Cardiology Reason for Consultation chest pain Requesting Provider: LEONOR ANDRE MD Date/Time of Note DATE: 12/09/18 TIME: 12:03 Exam/Review of Systems Vital Signs Vitals Vital Signs Date Temp Pulse Resp B/P (MAP) Pulse Ox O2 O2 Flow FiO2 Time Delivery Rate 12/09/18 98.4 75 20 109/56 95 08:26 (73) 12/08/18 Room Air 15:52 Intake and Output 12/08/18 12/08/18 12/09/18 1414:59 22:59 06:59 IntakeIntake Total 1000 ml BalanceBalance 1000 ml Exam Exam Review of Systems: CONSTITUTIONAL: No fevers, chills. PULMONARY: No sob CARDIOVASCULAR: No chest pain/palpitations GASTROINTESTINAL: No nausea/vomiting. GENITOURINARY: No hematuria/dysuria. MUSCULOSKELETAL: No myagias/arthalgias. PSYCHIATRIC: The patient denies depression. NEUROLOGIC: No weakness Constitutional: alert, oriented Psych: no complaints Head: normocephalic ENMT: mucosa pink and moist Neck: supple, jvd (9 cm water) Respiratory: clear to auscultation Cardiovascular: regular rate and rhythm Gastrointestinal: soft, non-tender Musculoskeletal: muscle tone (normal) Extremities: edema (none) Neurological: other (No focal defiicts) Labs Result Diagram: 12/09/18 0456 12/09/18 0456 Results 24hrs Laboratory Tests Test 12/08/18 17:53 12/09/18 04:56 Hemoglobin 7.2 L 7.1 L Hematocrit 23.0 L 23.6 L White Blood Count 4.4 L Red Blood Count 2.47 L Mean Corpuscular Volume 95.5 Mean Corpuscular Hemoglobin 28.7 L Mean Corpuscular Hemoglobin Concent 30.1 L Red Cell Distribution Width 15.8 H Platelet Count 174 Mean Platelet Volume 10.1 Immature Granulocytes % 0.500 H Neutrophils % 61.2 Lymphocytes % 24.8 Monocytes % 10.4 Eosinophils % 2.9 Basophils % 0.2 Nucleated Red Blood Cells % 0.0 Immature Granulocytes # 0.020 Neutrophils # 2.7 Lymphocytes # 1.1 Monocytes # 0.5 Eosinophils # 0.1 Basophils # 0.0 Nucleated Red Blood Cells # 0.0 Sodium Level 139 Potassium Level 3.9 Chloride Level 108 Carbon Dioxide Level 28 Anion Gap 3 L Blood Urea Nitrogen 14 Creatinine 0.83 Est Glomerular Filtrat Rate mL/min > 60 Glucose Level 75 Calcium Level 7.8 L Medications Medications Current Medications Miscellaneous Information (* Miscellaneous Pharmacy Order) DURAMORPH: 0.2 MG SPI... GIVEN NEURAXIAL XX ; Start 12/02/18 at 13:30 IV Flush (NS 3 ml) 3 ml PER PROTOCOL IV ; Start 12/02/18 at 13:30 Ketorolac Tromethamine (Toradol) 15 mg Q6H PRN IV .PAIN Last administered on 12/08/18 22:41; Admin Dose 15 MG; Start 12/02/18 at 13:30 Ondansetron HCl (Zofran Inj) 4 mg Q4H PRN IV NAUSEA/VOMITING Last administered on 12/06/18at 19:24; Admin Dose 4 MG; Start 12/03/18 at 13:30 Celecoxib (Celebrex) 100 mg BID PO Last administered on 12/08/18at 20:29; Admin Dose 100 MG; Start 12/03/18 at 09:00 Gabapentin (Neurontin) 100 mg TID PO Last administered on 12/09/18 10:15; Admin Dose 100 MG; Start 12/02/18 at 21:00 Magnesium Hydroxide (Milk Of Mag) 30 ml HS PRN PO .CONSTIPATION Last administered on 12/05/18 13:29; Admin Dose 30 ML; Start 12/02/18 at 13:30 Naloxone HCl (Narcan) 0.2 mg Q2M PRN IV .RESP RATE; Start 12/02/18 at 13:30 Docusate Sodium (Colace) 200 mg DAILY PRN PO CONSTIPATION Last administered on 12/06/18 09:17; Admin Dose 200 MG; Start 12/02/18 at 18:00 Duloxetine HCl (Cymbalta) 60 mg DAILY PO Last administered on 12/08/18 08:11; Admin Dose 60 MG; Start 12/03/18 at 09:00 Metaxalone (Skelaxin) 800 mg QID PO Last administered on 12/08/18 20:29; Admin Dose 800 MG; Start 12/02/18 at 21:00 Nortriptyline HCl (Aventyl) 25 mg HS PO Last administered on 12/08/18 20:28; Admin Dose 25 MG; Start 12/02/18 at 21:00 Diphenhydramine HCl (Benadryl) 25 mg Q4H PRN IV PRURITIS Last administered on 12/03/18 02:32; Admin Dose 25 MG; Start 12/02/18 at 18:00 Pantoprazole (Protonix Tab) 40 mg DAILY@06 PO Last administered on 12/09/18 06:02; Admin Dose 40 MG; Start 12/03/18 at 06:00 Morphine Sulfate (morphine) 2 mg Q3H PRN IV breakthrough pain Last administered on 12/08/18 13:37; Admin Dose 2 MG; Start 12/02/18 at 20:30 Hydroxyzine HCl (Atarax) 25 mg Q6H PRN PO ITCHING Last administered on 12/03/18 04:12; Admin Dose 25 MG; Start 12/02/18 at 21:00 Trazodone HCl (Desyrel) 300 mg HS PO Last administered on 12/08/18 22:40; Admin Dose 300 MG; Start 12/02/18 at 23:30 Oxycodone HCl (Roxicodone) 15 mg Q4H PRN PO .PAIN Last administered on 12/09/18 01:40; Admin Dose 15 MG; Start 12/03/18 at 15:00 Oxycodone HCl (Roxicodone) 10 mg Q4H PRN PO .PAIN Last administered on 12/06/18 01:41; Admin Dose 10 MG; Start 12/03/18 at 15:00 Oxycodone HCl (Roxicodone) 5 mg Q4H PRN PO .PAIN Last administered on 12/08/18 20:29; Admin Dose 5 MG; Start 12/03/18 at 15:00 Acetaminophen (Tylenol Tab) 1,000 mg Q8 PO Last administered on 12/09/18 06:02; Admin Dose 1,000 MG; Start 12/03/18 at 22:00 IV Flush (NS 10 ml) 10 ml PRN PRN IV IV PROTOCOL; Start 12/03/18 at 21:00 Phenol (Cepastat Lozenge) 1 lozenge Q1H PRN MT SORE THROAT Last administered on 12/05/18 09:35; Admin Dose 1 LOZENGE; Start 12/05/18 at 08:30 Vancomycin HCl 1.5 gm/Sodium Chloride 250 ml @ 83.333 mls/ hr Q24H IVPB Last administered on 12/08/18 14:46; Admin Dose 83.333 MLS/HR; Start 12/07/18 at 11:00 Alteplase, Recombinant (Cathflo (Activase)) 2 mg MAY REPEAT X1 PRN CATHETER IF CATHETER REMAINS OCCULUDED Last administered on 12/07/18 03:41; Admin Dose 2 MG; Start 12/07/18 at 02:00 Nitroglycerin (Nitroglycerin (Sl Tab) 0.4 Mg) 1 tab Q5M PRN SL ANGINA Last administered on 12/07/18 12:10; Admin Dose 1 TAB; Start 12/07/18 at 11:30 Ceftriaxone Sodium 50 ml @ 100 mls/hr Q24H IVPB Last administered on 12/08/18 20:30; Admin Dose 100 MLS/HR; Start 12/08/18 at 15:30 Enoxaparin Sodium (Lovenox) 85 mg Q12 SC Last administered on 12/09/18 10:16; Admin Dose 85 MG; Start 12/07/18 at 21:00 IV Flush (NS 10 ml) 10 ml PRN PRN IV FLUSH LINE; Start 12/08/18 at 18:00 Ferrous Sulfate (Ferrous Sulfate (Ec)) 325 mg BID PO Last administered on 12/09/18 10:14; Admin Dose 325 MG; Start 12/08/18 at 21:00 Triamterene/HCTZ (Dyazide) 1 cap DAILY PO ; Start 12/09/18 at 11:00 CAR KATZ December 09, 2018 12:06
[2018-12-09] MEDS: CELECOXIB 100 MG CAP PO SCH ×2 (12:13→21:44)
[2018-12-09] MEDS: DULOXETINE 30 MG CAP DR PO SCH (12:13)
[2018-12-09] MEDS ORDERED: APIX5TAB PO (12:30)
[2018-12-09] MEDS: TRIAMTERENE/HCTZ (37.5-25) CAP PO SCH (13:35)
--- NOTE | 2018-12-09 13:46 | CONS ---
[facility] HCIS Consult Follow-up Patient Name: Hermelinda Means Unit Number: [id number] Date of : 1955 Patient Status: Admitted Inpatient Attending Doctor: Maty Flaherty Edit: SENG TIMMONS M.D. on 12/12/18 @ 01:03 Iain: I discussed the management with [employer] [facility] and agree Assessment/Plan Assessment/Plan Hospital Course (Demo Recall) - recurrent bilateral prosthetic knee infection - s/p bilateral knee revision, stage I with removal of implants and placement of antibiotic spacer on 12/02/2018. the surgical site fluid grew Pantoea spp - h/o bilateral prosthetic knee infection in 2013 - s/p bilateral knee I&D with retention of prosthetic in 2013, according to Pt, the intra-operative cultures at that time did not grow bacteria. Pt took 6 weeks of IV vancomycin and ceftriaxone followed by 3 months of PO dicloxacillin - h/o bilateral total knee replacement in 2008 - pain of LUE due to acute DVT per venous doppler 12/07/2018 - acute on chronic anemia requiring PRBC - obesity - Hx of HTN - DOMO - h/o DJD - reported allergy to penicillin but Pt tolerates ceftriaxone Recommendations - await the final culture results of intra-operative fluid specimens (kept in the incubator for approximately 7 days) - DC vancomycin - continue ceftriaxone (dose was increased to 2 gram daily) - outpatient f/u next week with Dr. 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 Timmons Consultation Date/Type/Reason Admit Date/Time December 02, 2018 at 06:44 Initial Consult Date 12/04/18 Type of Consult Infectious Disease Requesting Provider: LEONOR ANDRE MD Date/Time of Note DATE: 12/09/18 TIME: 13:41 24 HR Interval Summary Free Text/Dictation DC planning in progress. Pt states she already has outpatient ID f/u with Dr. Morales next week. Pt will be getting 2 units of PRBC today for Hgb of 7.1. Also awaiting insurance authorization of [place] per d/w nursing. Surgical biopsy culture from 12/02/2018 is not growing MRSA. Remains afebrile. Pt states bilateral knee pain is currently 6/10. No nausea, vomiting, diarrhea, or dysuria. Pt is on Lovenox for LUE DVT. PICC line was changed to contralateral side Exam/Review of Systems Exam Vitals Vital Signs Date Temp Pulse Resp B/P (MAP) Pulse Ox O2 O2 Flow FiO2 Time Delivery Rate 12/09/18 98.3 13:35 12/09/18 75 20 109/56 95 08:26 (73) 12/08/18 Room Air 15:52 Intake and Output 12/08/18 12/08/18 12/09/18 1515:00 23:00 07:00 IntakeIntake Total 1000 ml BalanceBalance 1000 ml Constitutional: alert, oriented, well developed Psych: no complaints, nl mood/affect Head: normocephalic, atraumatic Eyes: nl conjunctiva, nl lids, nl sclera ENMT: nl external ears & nose, nl nasal mucosa & septum, mucosa pink and moist Neck: supple, non-tender Respiratory: clear to auscultation, normal air movement Cardiovascular: regular rate and rhythm Gastrointestinal: soft, non-tender Musculoskeletal: joint tenderness (bilateral knees), swelling (bilateral knees) Extremities: tenderness (LUE r/t acute DVT), other (RUE PICC c/d/i) Neurological: nl mental status, nl speech Skin: other (bilateral knee dressings c/d/i); No rash or lesions Results Result Diagram: 12/09/18 0456 12/09/18 0456 Results 24hrs Laboratory Tests Test 12/08/18 17:53 12/09/18 04:56 Hemoglobin 7.2 L 7.1 L Hematocrit 23.0 L 23.6 L White Blood Count 4.4 L Red Blood Count 2.47 L Mean Corpuscular Volume 95.5 Mean Corpuscular Hemoglobin 28.7 L Mean Corpuscular Hemoglobin Concent 30.1 L Red Cell Distribution Width 15.8 H Platelet Count 174 Mean Platelet Volume 10.1 Immature Granulocytes % 0.500 H Neutrophils % 61.2 Lymphocytes % 24.8 Monocytes % 10.4 Eosinophils % 2.9 Basophils % 0.2 Nucleated Red Blood Cells % 0.0 Immature Granulocytes # 0.020 Neutrophils # 2.7 Lymphocytes # 1.1 Monocytes # 0.5 Eosinophils # 0.1 Basophils # 0.0 Nucleated Red Blood Cells # 0.0 Sodium Level 139 Potassium Level 3.9 Chloride Level 108 Carbon Dioxide Level 28 Anion Gap 3 L Blood Urea Nitrogen 14 Creatinine 0.83 Est Glomerular Filtrat Rate mL/min > 60 Glucose Level 75 Calcium Level 7.8 L Imaging Imaging CXR 12/08/2018: Interval retraction of left sided PICC now in the high SVC. Interval placement of a right sided PICC with tip in the mid SVC. Lexiscan Myocardial Perfusion Study 12/08/2018: 1. No evidence of stress-induced ischemia. 2. No wall motion abnormalities. 3. The left ventricle ejection fraction at stress is 68%. Venous doppler 12/07/2018: DVT of the left axillary vein and left proximal brachial vein. Thrombosis of the left basilic vein. PICC line noted within the left basilic and axillary veins. Findings were given to the nurse caring for the patient at the time of examination. Medications Medication Current Medications Miscellaneous Information (* Miscellaneous Pharmacy Order) DURAMORPH: 0.2 MG SPI... GIVEN NEURAXIAL XX ; Start 12/02/18 at 13:30 IV Flush (NS 3 ml) 3 ml PER PROTOCOL IV ; Start 12/02/18 at 13:30 Ketorolac Tromethamine (Toradol) 15 mg Q6H PRN IV .PAIN Last administered on 12/08/18at 22:41; Admin Dose 15 MG; Start 12/02/18 at 13:30 Ondansetron HCl (Zofran Inj) 4 mg Q4H PRN IV NAUSEA/VOMITING Last administered on 12/06/18at 19:24; Admin Dose 4 MG; Start 12/03/18 at 13:30 Celecoxib (Celebrex) 100 mg BID PO Last administered on 12/09/18at 12:13; Admin Dose 100 MG; Start 12/03/18 at 09:00 Gabapentin (Neurontin) 100 mg TID PO Last administered on 12/09/18 13:34; Admin Dose 100 MG; Start 12/02/18 at 21:00 Magnesium Hydroxide (Milk Of Mag) 30 ml HS PRN PO .CONSTIPATION Last administered on 12/05/18 13:29; Admin Dose 30 ML; Start 12/02/18 at 13:30 Naloxone HCl (Narcan) 0.2 mg Q2M PRN IV .RESP RATE; Start 12/02/18 at 13:30 Docusate Sodium (Colace) 200 mg DAILY PRN PO CONSTIPATION Last administered on 12/06/18 09:17; Admin Dose 200 MG; Start 12/02/18 at 18:00 Duloxetine HCl (Cymbalta) 60 mg DAILY PO Last administered on 12/09/18 12:13; Admin Dose 60 MG; Start 12/03/18 at 09:00 Metaxalone (Skelaxin) 800 mg QID PO Last administered on 12/08/18 20:29; Admin Dose 800 MG; Start 12/02/18 at 21:00 Nortriptyline HCl (Aventyl) 25 mg HS PO Last administered on 12/08/18 20:28; Admin Dose 25 MG; Start 12/02/18 at 21:00 Diphenhydramine HCl (Benadryl) 25 mg Q4H PRN IV PRURITIS Last administered on 12/03/18 02:32; Admin Dose 25 MG; Start 12/02/18 at 18:00 Pantoprazole (Protonix Tab) 40 mg DAILY@06 PO Last administered on 12/09/18 06:02; Admin Dose 40 MG; Start 12/03/18 at 06:00 Morphine Sulfate (morphine) 2 mg Q3H PRN IV breakthrough pain Last administered on 12/08/18 13:37; Admin Dose 2 MG; Start 12/02/18 at 20:30 Hydroxyzine HCl (Atarax) 25 mg Q6H PRN PO ITCHING Last administered on 12/03/18 04:12; Admin Dose 25 MG; Start 12/02/18 at 21:00 Trazodone HCl (Desyrel) 300 mg HS PO Last administered on 12/08/18 22:40; Admin Dose 300 MG; Start 12/02/18 at 23:30 Oxycodone HCl (Roxicodone) 15 mg Q4H PRN PO .PAIN Last administered on 12/09/18 01:40; Admin Dose 15 MG; Start 12/03/18 at 15:00 Oxycodone HCl (Roxicodone) 10 mg Q4H PRN PO .PAIN Last administered on 12/06/18 01:41; Admin Dose 10 MG; Start 12/03/18 at 15:00 Oxycodone HCl (Roxicodone) 5 mg Q4H PRN PO .PAIN Last administered on 12/08/18 20:29; Admin Dose 5 MG; Start 12/03/18 at 15:00 Acetaminophen (Tylenol Tab) 1,000 mg Q8 PO Last administered on 12/09/18 13:35; Admin Dose 1,000 MG; Start 12/03/18 at 22:00 IV Flush (NS 10 ml) 10 ml PRN PRN IV IV PROTOCOL; Start 12/03/18 at 21:00 Phenol (Cepastat Lozenge) 1 lozenge Q1H PRN MT SORE THROAT Last administered on 12/05/18 09:35; Admin Dose 1 LOZENGE; Start 12/05/18 at 08:30 Vancomycin HCl 1.5 gm/Sodium Chloride 250 ml @ 83.333 mls/ hr Q24H IVPB Last administered on 12/08/18 14:46; Admin Dose 83.333 MLS/HR; Start 12/07/18 at 11:00 Alteplase, Recombinant (Cathflo (Activase)) 2 mg MAY REPEAT X1 PRN CATHETER IF CATHETER REMAINS OCCULUDED Last administered on 12/07/18 03:41; Admin Dose 2 MG; Start 12/07/18 at 02:00 Nitroglycerin (Nitroglycerin (Sl Tab) 0.4 Mg) 1 tab Q5M PRN SL ANGINA Last administered on 12/07/18 12:10; Admin Dose 1 TAB; Start 12/07/18 at 11:30 Ceftriaxone Sodium 50 ml @ 100 mls/hr Q24H IVPB Last administered on 12/08/18 20:30; Admin Dose 100 MLS/HR; Start 12/08/18 at 15:30 Enoxaparin Sodium (Lovenox) 85 mg Q12 SC Last administered on 12/09/18 10:16; Admin Dose 85 MG; Start 12/07/18 at 21:00 IV Flush (NS 10 ml) 10 ml PRN PRN IV FLUSH LINE; Start 12/08/18 at 18:00 Ferrous Sulfate (Ferrous Sulfate (Ec)) 325 mg BID PO Last administered on 12/09/18at 10:14; Admin Dose 325 MG; Start 12/08/18 at 21:00 Triamterene/HCTZ (Dyazide) 1 cap DAILY PO Last administered on 12/09/18at 13:35; Admin Dose 1 CAP; Start 12/09/18 at 11:00 COCO RICK NP December 09, 2018 13:46
[2018-12-09] MEDS: VANCOMYCIN HCL 1.5 GM in SOD CHLORIDE 0.9% 250 ML IVPB SCH (14:27)
[2018-12-09 14:51] VITALS: BP 130/66; PULSE 87; RESP 20
[2018-12-09] MEDS: CEFTRIAXONE 2 GM/50 ML (PMX) 50 ML IVPB SCH (15:31)
[2018-12-09 16:56] VITALS: BP 123/58; PULSE 80; RESP 20
[2018-12-09 19:30] VITALS: BP 117/67; PULSE 86; RESP 16
[2018-12-09] MEDS: traZODone 100 MG TAB PO SCH (21:43)
[2018-12-09] MEDS: NORTRIPTYLINE 25 MG CAP PO SCH (21:44)
[2018-12-10 02:08] VITALS: BP 127/65; PULSE 74; RESP 18
[2018-12-10] MEDS: ACETAMINOPHEN 500 MG TAB PO SCH ×2 (05:50→13:14)
[2018-12-10] MEDS: PANTOPRAZOLE (EC) 40 MG TAB PO SCH (05:50)
[2018-12-10 08:32] VITALS: BP 119/57; PULSE 73; RESP 20
[2018-12-10] MEDS: CELECOXIB 100 MG CAP PO SCH (08:51)
[2018-12-10] MEDS: FERROUS SULFATE (EC) 325 MG TAB PO SCH (08:51)
[2018-12-10] MEDS: TRIAMTERENE/HCTZ (37.5-25) CAP PO SCH (08:51)
[2018-12-10] MEDS: GABAPENTIN 100 MG CAP PO SCH ×2 (08:51→13:14)
[2018-12-10] MEDS: DULOXETINE 30 MG CAP DR PO SCH (08:51)
[2018-12-10] MEDS: METAXALONE 800 MG TAB PO SCH ×2 (08:53→13:14)
[2018-12-10] MEDS: ENOXAPARIN 100 MG/ML SYG SC SCH (08:58)
[2018-12-10] MEDS: KETOROLAC 15 MG INJ IV PRN (09:01)
[2018-12-10] MEDS ORDERED: LACT1CAP57 PO (10:56)
[2018-12-10] MEDS ORDERED: DOCU-159 PO (10:56)
[2018-12-10] MEDS ORDERED: CEFT2FRO2 IV (10:56)
[2018-12-10] MEDS ORDERED: FER325 PO (10:56)
--- NOTE | 2018-12-10 10:59 | PDOCDIS ---
Discharge Instructions DIAGNOSIS Discharge Diagnosis - recurrent bilateral prosthetic knee infection, S/p Bilateral knee revision, stage I with removal of implants and placement of antibiotic spacer, abx x 6 weeks - obesity - Hx of htn - DOMO - h/o DJD - reported allergy to penicillin but Pt tolerates ceftriaxone - Chest pain ACS ruled out - DVT of the left axillary vein and left proximal brachial vein associated with PICC line, anticoagulation x 3 months - Hypertension controlled - Chronic kidney disease stage III: stable - GERD - Depression . CONDITION [id number] Patient Condition: [id number] Stable HOME CARE INSTRUCTIONS: [id number] Diet Instructions: [id number] Low Fat /Cholesterol ACTIVITY: [id number] Activity Restrictions: [id number] Slowly Increase Activity Rest between Activity [id number] Activity Restrictions Upaux6d [facility] for PT and wound Comment: dressing and IV abx FOLLOW UP/APPOINTMENTS Follow-up Plan Please keepscheduled appointments with 1. Ortho : Dr Bernardo 2. ID : DR. MART . ZEV BONILLA December 10, 2018 10:59
--- NOTE | 2018-12-10 11:10 | EN ---
Date/Time of Note Date/Time of Note DATE: 12/10/18 TIME: 11:10 Event Note Medicine Medicine Event Note Discharge summary addendum Subjective: No new complaints Objective: Vital Sign - Last 24 Hours 12/09/18 12/09/18 12/09/18 12/09/18 13:35 14:31 14:51 16:56 Temp 98.3 98.1 98.0 98.4 Pulse 87 80 Resp 20 20 B/P (MAP) 130/66 (87) 123/58 (79) Pulse Ox 98 94 12/09/18 12/10/18 12/10/18 19:30 02:08 08:32 Temp 99.0 97.7 98.3 Pulse 86 74 73 Resp 16 18 20 B/P (MAP) 117/67 (84) 127/65 (85) 119/57 (77) Pulse Ox 95 98 96 Intake and Output 12/09/18 12/09/18 12/10/18 1515:00 23:00 07:00 IntakeIntake Total 360 ml 1140 ml 350 ml BalanceBalance 360 ml 1140 ml 350 ml Constitutional: alert, oriented, obese, no distress Respiratory: clear to auscultation Cardiovascular: nl pulse Gastrointestinal: soft, non-tender Musculoskeletal: other (Status post bilateral knee surgery) Extremities: normal pulses Neurological: nl mental status Laboratory Tests Test 12/10/18 08:48 White Blood Count 3.8 10^3/ul Red Blood Count 3.10 10^6/ul Hemoglobin 8.9 g/dl Hematocrit 28.5 % Mean Corpuscular Volume 91.9 fl Mean Corpuscular Hemoglobin 28.7 pg Mean Corpuscular Hemoglobin Concent 31.2 g/dl Red Cell Distribution Width 16.7 % Platelet Count 174 10^3/UL Mean Platelet Volume 9.4 fl Immature Granulocytes % 1.100 % Neutrophils % 58.6 % Lymphocytes % 25.3 % Monocytes % 10.8 % Eosinophils % 3.7 % Basophils % 0.5 % Nucleated Red Blood Cells % 0.0 /100WBC Immature Granulocytes # 0.040 10^3/ul Neutrophils # 2.2 10^3/ul Lymphocytes # 1.0 10^3/ul Monocytes # 0.4 10^3/ul Eosinophils # 0.1 10^3/ul Basophils # 0.0 10^3/ul Nucleated Red Blood Cells # 0.0 10^3/ul Sodium Level 140 mmol/L Potassium Level 3.9 mmol/L Chloride Level 107 mmol/L Carbon Dioxide Level 29 mmol/L Anion Gap 4 Blood Urea Nitrogen 11 mg/dl Creatinine 0.75 mg/dl Est Glomerular Filtrat Rate mL/min > 60 mL/min Glucose Level 76 mg/dl Calcium Level 8.3 mg/dl Admit Date/Time December 02, 2018 at 06:44 Discharge Date/Time Discharge Diagnosis 1. Recurrent bilateral prosthetic knee infection - s/p bilateral knee revision, stage I with removal of implants and placement of antibiotic spacer on 12/02/2018. the surgical site fluid grew pantoea spp - h/o bilateral prosthetic knee infection in 2013 - s/p bilateral knee I&D with retention of prosthetic in 2013, according to Pt, the intra-operative cultures at that time did not grow bacteria. Pt took 6 weeks of IV vancomycin and ceftriaxone followed by 3 months of PO dicloxacillin - h/o bilateral total knee replacement in 2008 2. Chest pain: -ACS has been ruled out, status post nuclear medicine stress test 12/08/18 without evidence of reversible damage, medical management, chest pain resolved 3. New DVT of left axillary, proximal brachial, and basilic vein associated with PICC line, newly started on anticoagulation 4. Obesity 5. Htn 6. DOMO 7. h/o DJD 8. Reported allergy to penicillin but Pt tolerates ceftriaxone 9. Chronic kidney disease stage III continue to monitor BUN and creatinine. 10. GERD 11. Depression . Patient Condition: Stable Consults 1. Orthopedic surgery: Bhavesh Bernardo MD 2. Cardiology: Torsten Titus MD 3. Infectious disease: Deep Jackson . Hospital Course 62-year-old female who was originally admitted for elective bilateral knee revision with removal of implants and placement of antibiotic spacer. The patient had a history of bilateral knee replacement many years ago and developed infection of bilateral knee prosthesis. Infectious disease consultation was obtained and intraoperative cultures were also obtained. Intraoperative cultures grew Pantoea Agglomerans , and the plan was to discharge patient home with home health and IV antibiotics once final sensitivities were available. Patient's postoperative course was complicated however by DVT of left axillary and left proximal brachial vein as well as a cephalic vein thrombosis of the left basilic veins. Note that this was associated with a PICC line that was placed due to the need for home IV antibiotics. Based on this patient was started on blood thinner therapy and PICC line was removed and transferred to the alternate arm. Also patient developed chest pain postoperatively and required a full cardiac work-up. Patient underwent a nuclear medicine stress test that showed no e vidence of stress-induced ischemia, preserved ejection fraction at stress of 68%. Patient also developed severe anemia and required transfusion of 2 units of packed red cells. At this time she has been optimized and is stable for discharge, case management has been invaluable in setting up home health care as well as home IV antibiotics, patient should be discharged in stable condition. . Discharge medications: For full list of discharge medication, please review the patient's chart Follow-up Plan Patient will follow-up with orthopedic surgery as well as infectious disease as outpatient. Patient also has been set up with home health for IV antibiotics as well as physical therapy and will continue to be monitored by her assigned primary care doctor. . Primary Care Provider Not On Staff Doctor Time spent on discharge: > 30 minutes ZEV BONILLA December 10, 2018 11:10
--- NOTE | 2018-12-10 11:55 | PN ---
Date/Time of Note Date/Time of Note DATE: 12/10/18 TIME: 11:53 Assessment/Plan Lines/Catheters IV Catheter Type (from Nrsg): PICC Line Husain in Place (from Nrsg): No Assessment/Plan Assessment/Plan The patient is 7 days s/p bilateral TKA revision stage I. She is ready for discharge, follow up in 1 week. She will continue IV antibiotics, PT. Subjective 24 Hr Interval Summary Slow and steady progress, right knee is more unstable Constitutional: ambulates Pain Control: moderate Exam/Review of Systems Vital Signs Vitals Vital Signs Date Temp Pulse Resp B/P (MAP) Pulse Ox O2 O2 Flow FiO2 Time Delivery Rate 12/10/18 98.3 73 20 119/57 96 08:32 (77) 12/08/18 Room Air 15:52 Intake and Output 12/09/18 12/09/18 12/10/18 1515:00 23:00 07:00 IntakeIntake Total 360 ml 1140 ml 350 ml BalanceBalance 360 ml 1140 ml 350 ml Exam Free Text/Dictation Bilateral knee dressings intact, mild swelling noted. no NV deficit Results Result Diagram: 12/10/1848 12/10/18 0848 BETH MCINTYRE December 10, 2018 11:55
[2018-12-10] MEDS: CEFTRIAXONE 2 GM/50 ML (PMX) 50 ML IVPB SCH (13:43)
[2018-12-10 15:05] VITALS: BP 145/72; PULSE 79; RESP 20
== END 2018-12-10 16:10 | disposition home health service (06) | DRG 462 ==
LOC: REC 06:44 → MS1 18:40 → 6WM 12-06 21:16 → PP2 12-08 22:12 → 2NE 12-09 00:27
PROVIDERS: ADMIT Orthopaedic Surgery; ATTEND Family Medicine
PROC: 0SRD0J9 Replacement of Left Knee Joint with Synthetic Substitute, Cemented, Open Approach (ICD-10-PCS; 2018-12-02)
PROC: 0SRC0J9 Replacement of Right Knee Joint with Synthetic Substitute, Cemented, Open Approach (ICD-10-PCS; 2018-12-02)
PROC: 0SPC0JZ Removal of Synthetic Substitute from Right Knee Joint, Open Approach (ICD-10-PCS; 2018-12-02)
PROC: 0SRD0EZ Replacement of Left Knee Joint with Articulating Spacer, Open Approach (ICD-10-PCS; 2018-12-02)
PROC: 0SRC0EZ Replacement of Right Knee Joint with Articulating Spacer, Open Approach (ICD-10-PCS; 2018-12-02)
PROC: 02HV33Z Insertion of Infusion Device into Superior Vena Cava, Percutaneous Approach (ICD-10-PCS; 2018-12-02)
PROC: 0SPD0JZ Removal of Synthetic Substitute from Left Knee Joint, Open Approach (ICD-10-PCS; principal; 2018-12-02 08:30)
PROC: 05HY33Z Insertion of Infusion Device into Upper Vein, Percutaneous Approach (ICD-10-PCS; 2018-12-03)
PROC: 30233N1 Transfusion of Nonautologous Red Blood Cells into Peripheral Vein, Percutaneous Approach (ICD-10-PCS; 2018-12-09)
DX: T84.54XA Infection and inflammatory reaction due to internal left knee prosthesis, initial encounter (principal); I82.622 Acute embolism and thrombosis of deep veins of left upper extremity; D62 Acute posthemorrhagic anemia; T84.53XA Infection and inflammatory reaction due to internal right knee prosthesis, initial encounter; K21.9 Gastro-esophageal reflux disease without esophagitis; E66.01 Morbid (severe) obesity due to excess calories; Z68.34 Body mass index [BMI] 34.0-34.9, adult; I12.9 Hypertensive chronic kidney disease with stage 1 through stage 4 chronic kidney disease, or unspecified chronic kidney disease; N18.3 Chronic kidney disease, stage 3 (moderate); F32.9 Major depressive disorder, single episode, unspecified; R07.9 Chest pain, unspecified
CPT/HCPCS: 36430; 36569; 71045; 76937; 78452; 80048; 80202; 84484; 85014; 85018; 85025; 86644; 86850; 86900; 86901; 86920; 87070; 87075; 87081; 87086; 87102; 88300; 93005; 93017; 93306; 93970; 93971; 97110; 97116; 97162; 97165; 97530; A9500; A9505; C1713; C1776; J0131; J0171; J0696; J0735; J1100; J1200; J1650; J1885; J2250; J2270; J2274; J2405; J2765; J2785; J2795; J2997; J3010; J3370; J7040; J7050; J7120; P9016

== ENCOUNTER 2019-03-03 09:06 | Inpatient (IN) | payer BC ==
[2019-02-21 18:12] VITALS: BMI 34.3
[2019-03-03] VITALS (18 sets, daily range): BP systolic 86–120; BP diastolic 54–75; PULSE 79–106; RESP 16–24; Ht 157.5 cm; Wt 84.4 kg
[~2019-03-03] VITALS: Ht 157.5 cm; Wt 84.4 kg
[2019-03-03] MEDS: CLINDAMYCIN 900 MG (PMX) 50 ML IVPB SCH ×4 (08:00→23:48)
[~2019-03-03 09:06] MED LIST changes: +APIX5TAB PO; +BUTA1CAP38 PO; +CEFT2FRO2 IV; +CITRACAL PO; +DEXAMETHASONE 4 MG/ML 1 ML INJ IV ONE; +DOCU-159 PO; +FER325 PO; +GABA100C14 PO; +HYDR25TA6 PO; +LACT1CAP57 PO; +LINA145C PO; +MULTI PO; -NORT10CA2 PO; +NORT10SO PO; +NORT25CA PO; +TOPI25CA2 PO; +TRANEXAMIC ACID 1GM/100ML(PMX) 100 ML AT CLOSURE X1 IVPB ONE; +TRANEXAMIC ACID 1GM/100ML(PMX) 100 ML AT INCISION X1 IVPB ONE
[2019-03-03] MEDS: ACETAMINOPHEN 1000MG/100ML IV 100 ML IVPB SCH ×2 (10:00→16:07)
[2019-03-03] MEDS: LACTATED RINGER'S 1,000 ML IV SCH ×4 (10:00→22:00)
[2019-03-03] MEDS ORDERED: FENTAnyl 50 MCG/ML VIAL ONE (11:13)
[2019-03-03] MEDS ORDERED: CEFAZOLIN 1 GM INJ ONE (11:13)
[2019-03-03] MEDS ORDERED: PROPOFOL 20 ML ONE (11:13)
[2019-03-03] MEDS ORDERED: LIDOCAINE 2% (SDV) 5 ML INJ ONE (11:13)
[2019-03-03] MEDS ORDERED: MIDAZOLAM 1 MG/ML 2 ML INJ ONE (11:13)
[2019-03-03] MEDS ORDERED: DEXAMETHASONE 4 MG/ML 5 ML INJ ONE (11:13)
[2019-03-03] MEDS ORDERED: ONDANSETRON 4 MG INJ ONE (11:13)
[2019-03-03] MEDS ORDERED: morphine SULFATE/PF (10 MG/10 ML) INJ ONE (11:14)
[2019-03-03] MEDS ORDERED: POLYMYXIN B 500000 UNIT INJ ONE (12:01)
[2019-03-03] MEDS ORDERED: TRANEXAMIC ACID 1GM/100ML(PMX) 200 ML ONE (12:01)
[2019-03-03] MEDS ORDERED: BACITRACIN 50000 UNITS INJ ONE (12:17)
[2019-03-03] MEDS ORDERED: CLINDAMYCIN 900 MG (PMX) 50 ML IVPB ONE (13:30)
[2019-03-03] MEDS ORDERED: DIPHENHYDRAMINE 50 MG INJ IV PRN (15:00)
[2019-03-03] MEDS ORDERED: hydrALAzine 20 MG INJ IV PRN (15:00)
[2019-03-03] MEDS ORDERED: ONDANSETRON 4 MG INJ IV PRN (15:00)
[2019-03-03] MEDS ORDERED: LABETALOL HCL 20MG INJ IV PRN (15:00)
[2019-03-03] MEDS ORDERED: NALOXONE (0.4 MG/ML) INJ IV PRN ×2 (15:00→15:30)
[2019-03-03] MEDS ORDERED: FENTAnyl 50 MCG/ML VIAL IV PRN ×5 (15:00)
[2019-03-03] MEDS ORDERED: ROPIVACAINE 0.5 % 30 ML VIAL ONE (15:12)
[2019-03-03] MEDS ORDERED: NACL 0.9% 3 ML SYG IV SCH (15:30)
[2019-03-03] MEDS ORDERED: CLINDAMYCIN 900 MG (PMX) 50 ML IVPB SCH (15:30)
[2019-03-03] MEDS ORDERED: MAGNESIUM HYDROXIDE 30ML CUP PO PRN (15:30)
[2019-03-03] MEDS ORDERED: CLINDAMYCIN 600 MG/D5W (PMX) 50 ML IVPB SCH (16:00)
[2019-03-03] MEDS ORDERED: ACET/BUTAL/CAFF TAB PO PRN (16:30)
[2019-03-03] MEDS ORDERED: DIPHENHYDRAMINE 50 MG INJ IV STA (17:15)
[2019-03-03] MEDS ORDERED: NORTRIPTYLINE HCL 10 MG PO SCH (21:00)
[2019-03-03] MEDS ORDERED: traZODone 100 MG TAB PO SCH (21:00)
[2019-03-03] MEDS ORDERED: NORTRIPTYLINE 10 MG CAP PO SCH (21:00)
[2019-03-03] MEDS: NALBUPHINE HCL (10 MG/1 ML) INJ IV PRN (22:05)
[2019-03-03] MEDS: GABAPENTIN 100 MG CAP PO SCH (22:06)
[2019-03-03] MEDS: KETOROLAC 15 MG INJ IV PRN (22:50)
[2019-03-03] MEDS: TOPIRAMATE SPRINKLE 25 MG CAP PO SCH (22:50)
[2019-03-03] MEDS ORDERED: morphine 2 MG INJ IV PRN (23:00)
[2019-03-03] MEDS: HYDROCODONE/APAP (5/325) TAB PO PRN (23:05)
[2019-03-04 00:31] VITALS: BP 93/54; PULSE 87; RESP 18
[2019-03-04] MEDS: NALBUPHINE HCL (10 MG/1 ML) INJ IV PRN (03:23)
[2019-03-04] MEDS: LACTATED RINGER'S 1,000 ML IV SCH ×4 (03:27→16:20)
[2019-03-04] MEDS: HYDROCODONE/APAP (5/325) TAB PO PRN ×2 (05:36→12:23)
[2019-03-04] MEDS ORDERED: PANTOPRAZOLE (EC) 40 MG TAB PO SCH (06:00)
[2019-03-04 07:56] VITALS: BP 95/51; PULSE 61; RESP 18
[2019-03-04] MEDS ORDERED: [UNRECOGNIZED DRUG - REMARK] XX SCH (08:30)
[2019-03-04] MEDS: GABAPENTIN 100 MG CAP PO SCH ×2 (08:37→14:08)
[2019-03-04] MEDS: CLINDAMYCIN 900 MG (PMX) 50 ML IVPB SCH ×2 (08:38→16:31)
[2019-03-04 08:45] VITALS: BP 99/56; PULSE 66; RESP 18
[2019-03-04] MEDS ORDERED: ASPIRIN (EC) 81 MG TAB PO SCH (09:00)
[2019-03-04] MEDS ORDERED: DOCUSATE SODIUM 100 MG CAP PO SCH (09:00)
[2019-03-04] MEDS: TOPIRAMATE SPRINKLE 25 MG CAP PO SCH (09:00)
[2019-03-04] MEDS ORDERED: NON-FORMULARY/PATIENT OWN MED (Omeprazole* 40 MG) PO SCH (09:00)
[2019-03-04] MEDS ORDERED: NON-FORMULARY/PATIENT OWN MED (Linaclotide (Linzess) 145 MCG) PO SCH (09:00)
[2019-03-04] MEDS ORDERED: DULOXETINE 30 MG CAP DR PO SCH (09:00)
[2019-03-04] MEDS ORDERED: HYDROCHLOROTHIAZIDE 25 MG TAB PO SCH (09:00)
[2019-03-04] MEDS: KETOROLAC 15 MG INJ IV PRN (09:35)
[2019-03-04] MEDS ORDERED: TOPIRAMATE SPRINKLE 25 MG CAP PO SCH (12:00)
[2019-03-04 14:05] VITALS: BP 105/57; PULSE 92; RESP 18
[2019-03-04] MEDS ORDERED: LINZESS 145 MCG CAPSULE PO SCH (15:00)
[2019-03-04] MEDS ORDERED: ONDANSETRON 4 MG INJ IV PRN (15:30)
[2019-03-04] MEDS ORDERED: APIXABAN 5 MG TABLET PO SCH (21:00)
[2019-03-05] MEDS ORDERED: PANTOPRAZOLE (EC) 40 MG TAB PO SCH (06:00)
== END 2019-03-04 19:00 | disposition home or self-care (01) | DRG 468 ==
LOC: REC 09:06 → MS1 16:55
PROVIDERS: ADMIT Orthopaedic Surgery; ATTEND Orthopaedic Surgery
PROC: 0SRC069 Replacement of Right Knee Joint with Oxidized Zirconium on Polyethylene Synthetic Substitute, Cemented, Open Approach (ICD-10-PCS; 2019-03-03)
PROC: 0SPC0JZ Removal of Synthetic Substitute from Right Knee Joint, Open Approach (ICD-10-PCS; principal; 2019-03-03 11:30)
DX: T84.53XA Infection and inflammatory reaction due to internal right knee prosthesis, initial encounter (principal); Y83.8 Other surgical procedures as the cause of abnormal reaction of the patient, or of later complication, without mention of misadventure at the time of the procedure; K21.9 Gastro-esophageal reflux disease without esophagitis; F32.9 Major depressive disorder, single episode, unspecified; Y79.8 Miscellaneous orthopedic devices associated with adverse incidents, not elsewhere classified; I12.9 Hypertensive chronic kidney disease with stage 1 through stage 4 chronic kidney disease, or unspecified chronic kidney disease; N18.9 Chronic kidney disease, unspecified; G47.33 Obstructive sleep apnea (adult) (pediatric); Y92.9 Unspecified place or not applicable; Z96.653 Presence of artificial knee joint, bilateral; E66.9 Obesity, unspecified; Z88.0 Allergy status to penicillin; Z68.34 Body mass index [BMI] 34.0-34.9, adult; Z86.718 Personal history of other venous thrombosis and embolism
CPT/HCPCS: 73560; 80048; 80076; 83735; 84100; 85025; 86850; 86900; 86901; 87070; 87081; 87086; 87102; 87116; 88300; 88304; 88311; 97161; C1713; J0131; J0171; J0690; J0735; J1100; J1200; J1885; J2250; J2270; J2274; J2300; J2405; J2795; J3010; J7120